=== PATIENT | female | born 1995 | race Caucasian/White ===

== ENCOUNTER 2023-01-13 14:17 | Outpatient (CLI) | payer BC, SELFPAY ==
[2023-01-13 15:13] LABS: Beta HCG Quantitative 340.09 mIU/ML
[2023-01-13 16:06] LABS: T4 Thyroxine 7.87 ug/dL (5.53-11.0)
== END 2023-01-13 14:18 | disposition home or self-care (01) ==
LOC: ANHLAB 14:19
PROVIDERS: PCP Pediatrics; Visit Provider Obstetrics & Gynecology
DX: O26.851 Spotting complicating pregnancy, first trimester (principal); Z3A.00 Weeks of gestation of pregnancy not specified
CPT/HCPCS: 36415; 84436; 84443; 84702; 86850; 86900; 86901

== ENCOUNTER 2023-04-05 08:03 | Outpatient (CLI) | payer OTHER, SELFPAY ==
--- NOTE | ~2023-04-05 | US_ITS ---
US abdomen limited INDICATION: Abnormal liver enzymes PROCEDURE: Realtime right upper abdominal ultrasound. COMPARISON: No prior studies for comparison. FINDINGS: The pancreas is normal without focal mass or pancreatic ductal dilation. Echotexture is in creased, consistent with fatty infiltration. There is focal fatty sparing of the liver near the gallb ladder fossa. There is normal directional flow in the portal vein. The gallbladder is normal without stones, gallbladder wall thickening or pericholecystic fluid. Comm on bile duct measures 3.6 mm. No sonographic Donnelly's sign. IMPRESSION: 1: Hepatic steatosis. Reviewed, dictated and finalized at location L. IMPRESSION: 1: Hepatic steatosis.
[2023-04-05 10:33] LABS: Alanine Aminotransferase 61 U/L (6-35); Albumin Level 4.4 g/dL (3.5-5.1); Alkaline Phosphatase 57 U/L (38-126); Anion Gap 8 mmol/L (8-16); Aspartate Amino Transferase 39 U/L (14-36); Bilirubin,Total 0.8 mg/dL (0.2-1.3); Blood Urea Nitrogen 12 mg/dL (7-17); Calcium 9.1 mg/dL (8.4-10.2); Carbon Dioxide 25 mmol/L (22-30); Chloride 104 mmol/L (98-107); Estimated Glomerular Filt Rate > 60; Glucose 111 mg/dL (65-110); Sodium 137 mmol/L (137-145)
== END 2023-04-05 08:04 | disposition home or self-care (01) ==
LOC: ANHIMG 08:06
PROVIDERS: PCP Pediatrics; Visit Provider Obstetrics & Gynecology
DX: R74.8 Abnormal levels of other serum enzymes (principal); K76.0 Fatty (change of) liver, not elsewhere classified
CPT/HCPCS: 36415; 76705; 80053

== ENCOUNTER 2024-07-16 13:37 | Outpatient (CLI) | payer BC, SELFPAY ==
[2024-07-16 14:01] LABS: Basophils Percent Auto 0.3 % (0.2-1.2); Eosinophils Absolute Auto 0.2 K/mm3 (0-0.3); Eosinophils Percent Auto 2.3 % (0-4.4); Hematocrit 39.2 % (37.0-47.0); Hemoglobin 13.1 g/dL (12.0-15.0); Immature Granulocyte Absolute 0.02 K/mm3 (0.00-0.031); Immature Granulocyte Percent A 0.3 % (0-0.5); Lymphocytes Absolute Auto 1.52 K/mm3 (0.9-3.2); Lymphocytes Percent Auto 23.7 % (18.3-44.2); Mean Corpuscular HGB Conc 33.4 g/dl (32-36); Mean Corpuscular Volume 86.7 fl (80-100); Mean Platelet Volume 9.8 fl (7.4-10.4); Monocytes Absolute Auto 0.4 K/mm3 (0.1-0.6); Monocytes Percent Auto 6.2 % (2.6-8.5); Neutrophils Absolute Auto 4.3 K/mm3 (1.3-6.7); Neutrophils Percent Auto 67.2 % (45.5-73.1); Platelet Count Result 211 k/mm3 (150-375); Red Blood Count 4.52 M/mm3 (4.2-5.4); Red Cell Distribution Width 12.7 % (11.5-14.5); White Blood Count 6.4 K/mm3 (4.5-10.0)
[2024-07-16 14:25] LABS: Add Urine Microscopic? YES; Appearance Urine Clear (Clear); Bacteria Urine 1+ /hpf; Bilirubin Urine Negative (Negative); Blood Urine 1+ (Negative); Color Urine Yellow (Yellow); Glucose Urine UA Negative (Negative); Ketones Urine Negative (Negative); Leukocyte Esterase Ur Negative LEU/UL (Negative); Need Manual Microscopic Reviewed; Nitrate Urine Negative (Negative); Non Pathogenic Casts 0-2; Protein Urine Negative (Negative); RBC Urine 0-2 /hpf (0-2); Squamous Epithelial Cell Urine Occasional /hpf (Few); Urobilinogen Urine 0.2 mg/dL (<2.0); WBC Urine 0-5 /hpf (0-3); pH Urine 5.5 (5.0-9.0)
[2024-07-16 14:51] LABS: HIV 1/2 Ab P24 Ag Result Negative (Negative)
[2024-07-16 15:06] LABS: Hepatitis B Surface Antigen Negative (Negative); Rubella IgG Antibody 31.1 IU/ML
[2024-07-16 15:11] LABS: Hepatitis C Virus Antibody Negative (Negative)
[2024-07-17 10:07] LABS: Rapid Plasma Reagin Non-Reactive (NonReactive)
[2024-07-17 20:13] LABS: Hematocrit 39.9 % (35.0-45.0); Hemoglobin 12.9 g/dL (11.7-15.5); MCH 28.6 pg (27.0-33.0); MCV 88.5 fL (80.0-100.0); RDW 12.3 % (11.0-15.0); Red Blood Cell Count 4.51 Million/uL (3.80-5.10)
== END 2024-07-16 13:38 | disposition home or self-care (01) ==
PROVIDERS: PCP Pediatrics; Visit Provider Obstetrics & Gynecology
DX: Z34.90 Encounter for supervision of normal pregnancy, unspecified, unspecified trimester (principal); Z79.899 Other long term (current) drug therapy
CPT/HCPCS: 36415; 81001; 83021; 85025; 86592; 86703; 86762; 86787; 86803; 86850; 86900; 86901; 87086; 87340; G0432

== ENCOUNTER 2024-08-07 10:34 | Outpatient (CLI) | payer BC, SELFPAY ==
[2024-08-07 12:29] LABS: Free T4 Free Thyroxine 1.03 ng/dL (0.78-2.19)
[2024-08-07 23:51] LABS: Alanine Aminotransferase 17 U/L (6-35); Albumin Level 3.6 g/dL (3.5-5.1); Alkaline Phosphatase 61 U/L (38-126); Aspartate Amino Transferase 19 U/L (14-36); Bilirubin,Total 0.5 mg/dL (0.2-1.3)
[2024-08-08 00:22] LABS: Thyroid Stimulating Hormone 0.772 uIU/mL (0.465-4.680)
== END 2024-08-07 10:35 | disposition home or self-care (01) ==
PROVIDERS: PCP Pediatrics; Visit Provider Obstetrics & Gynecology
DX: O99.280 Endocrine, nutritional and metabolic diseases complicating pregnancy, unspecified trimester (principal); E03.9 Hypothyroidism, unspecified; Z3A.00 Weeks of gestation of pregnancy not specified
CPT/HCPCS: 36415; 80076; 84439; 84443

== ENCOUNTER 2024-09-21 09:02 | Outpatient (CLI) | payer BC, SELFPAY ==
[2024-09-21 11:19] LABS: OBXCEM ROM Plus Negative (Negative)
== END 2024-09-21 09:50 | disposition home or self-care (01) ==
LOC: ANHOBOP 09:07 → ANHOBPP 09:08
PROVIDERS: PCP Pediatrics; Visit Provider Obstetrics & Gynecology
DX: O41.8X90 Other specified disorders of amniotic fluid and membranes, unspecified trimester, not applicable or unspecified (principal); Z3A.00 Weeks of gestation of pregnancy not specified
CPT/HCPCS: 84112; 99199

== ENCOUNTER 2024-10-05 07:46 | Observation (INO) | payer BC, SELFPAY ==
[2024-10-05] VITALS (15 sets, daily range): PULSE 104–136; O2SAT 97–100; BMI 30.2
--- OUTSIDE RECORDS SUMMARY | 2024-10-05 07:57 | XMS_ITS | Encounter Summary ---
Author Organization [facility] Address [address] [place] [address] Care Team Providers Care Supersonic Engineer Name Role Phone Unavailable Primary Care Provider Unavailabl e Encounter Details Date Type Department Care Team (Latest Contact Info) Description 02/16/2024 Lab Requisition [facility] [address] [place] [address] Carla Chavez MD [address] [facility] [address] [place] [address] Hyperstimulation of ovaries Social History Tobacco Use Types Packs/Day Years Used Date Smoking Tobacco: Never Assessed Sex and Gender Information Value Date Recorded Sex Assigned at Not on file Gender Identity Not on file Sexual Orientation Not on file documented as of this encounter Plan of Treatment Not on file documented as of this encounter Procedures Procedure Name Priority Date/Time Associated Diagnosis Comments CBC W AUTO DIFFERENTIAL STAT 02/16/2024 12:15 PM CDT Hyperstimulation of ovaries COMPREHENSIVE METABOLIC PANEL STAT 02/16/2024 12:15 PM CDT Hyperstimulation of ovaries documented in this encounter Results * (ABNORMAL) COMPREHENSIVE METABOLIC PANEL (02/16/2024 12:15 PM CDT) Glucose 114(H) 70 - 105 mg/dL 02/16/2024 12:56 PM CDT [facility] Sodium 141 136 - 145 mmol/L 02/16/2024 12:56 PM CDT [facility] Potassium 4.7 3.5 - 5.1 mmol/L 02/16/2024 12:56 PM CDT [facility] Chloride 106 98 - 107 mmol/L 02/16/2024 12:56 PM CDT [facility] CO2 26 22 - 29 mmol/L 02/16/2024 12:56 PM CDT [facility] Calcium 9.6 8.4 - 10.4 mg/dL 02/16/2024 12:56 PM CDT [facility] Anion Gap 9 6 - 16 mmol/L 02/16/2024 12:56 PM CDT [facility] BUN 10 5.3 - 18.7 mg/dL 02/16/2024 12:56 PM CDT [facility] Creatinine 0.79 0.57 - 1.11 mg/dL 02/16/2024 12:56 PM CDT [facility] Alkaline Phosphatase 56 40 - 150 U/L 02/16/2024 12:56 PM CDT [facility] ALT 18 0 - 55 U/L 02/16/2024 12:56 PM CDT [facility] AST 13 5 - 34 U/L 02/16/2024 12:56 PM CDT [facility] Protein Total 6.6 6.4 - 8.3 gm/dL 02/16/2024 12:56 PM CDT [facility] Albumin 3.6 3.4 - 5.0 gm/dL 02/16/2024 12:56 PM CDT [facility] Bilirubin Total 0.6 0.2 - 1.2 mg/dL 02/16/2024 12:56 PM CDT [facility] eGFR by CKD-EPI >90 >=90 mL/min/1.7 3 m2 02/16/2024 12:56 PM CDT [facility] Blood BLOOD SPECIMEN / Unknown Venipuncture / Unknown 02/16/2024 12:15 PM CDT 02/16/2024 12:15 PM CDT Carla Chavez MD LAB - CHEMISTR Y ORDERABLES [facility] [address] [place] [address] * (ABNORMAL) CBC WITH DIFFERENTIAL (02/16/2024 12:15 PM CDT) [facility] Signature WBC 7.4 4.0 - 10.7 x10E9/L 02/16/2024 12:32 PM CDT [facility] RBC Count 3.96 3.90 - 5.20 x10E12/L 02/16/2024 12:32 PM CDT [facility] Hemoglobin 11.4(L) 11.9 - 15.8 g/dL 02/16/2024 12:32 PM CDT [facility] Hematocrit 35.5 34.8 - 46.1 % 02/16/2024 12:32 PM CDT [facility] MCV 89.6 80.0 - 98.0 fL 02/16/2024 12:32 PM CDT [facility] MCH 28.8 26.7 - 33.6 pg 02/16/2024 12:32 PM CDT [facility] MCHC 32.1 31.7 - 36.3 g/dL 02/16/2024 12:[facility] RDW-CV 11.9 11.3 - 14.8 % 02/16/2024 12:32 [address] [facility] Platelet Count 172 150 - 420 x10E9/L 02/16/2024 12:32 PM [facility] MPV 10.6 7.8 - 11.4 fL 02/16/2024 12:32 PM [facility] Neutrophil % 74.5(H) 41.0 - 74.0 % 02/16/2024 12:32 PM [facility] Lymphocyte % 13.4(L) 17.0 - 47.0 % 02/16/2024 12:32 PM [facility] Monocyte % 10.0 3.0 - 11.0 % 02/16/2024 12:32 PM CDT [facility] Eosinophil % 1.4 0.0 - 7.0 % 02/16/2024 12:32 PM [facility] Basophil % 0.3 0.0 - 1.6 % 02/16/2024 12:32 PM CDT [facility] Immature Granulocytes % 0.4 0.0 - 1.0 % 02/16/2024 12:32 [address] [facility] Neutrophil Absolute 5.52 1.60 - 7.50 x10E9/L 02/16/2024 12:32 PM CDT [facility] Lymphocyte Absolute 0.99(L) 1.00 - 4.40 x10E9/L 02/16/2024 12:32 PM CDT [facility] Monocyte Absolute 0.74 0.15 - 1.00 x10E9/L 02/16/2024 12:32 PM CDT [facility] Eosinophil Absolute 0.10 0.00 - 0.60 x10E9/L 02/16/2024 12:32 PM CDT [facility] Basophil Absolute 0.02 0.00 - 0.13 x10E9/L 02/16/2024 12:32 PM CDT [facility] Blood BLOOD SPECIMEN / Unknown 02/16/2024 12:15 PM CDT 02/16/2024 12:15 PM CDT Carla Chavez MD LAB - HEMATOLO GY ORDERABLES Performing Organization Address City/State/[facility] Co de Phone Number [facility] [address] [place] [address] documented in this encounter Visit Diagnoses Diagnosis Hyperstimulation of ovaries Other ovarian hyperfunction documented in this encounter
--- OUTSIDE RECORDS SUMMARY | 2024-10-05 07:57 | XMS_ITS | Referral Summary ---
Author Organization [facility] Address [address] [place] [address] Care Team Providers Care Internetworking Technician Name Role Phone Unavailable Primary Care Provider Unavailabl e Source Comments [facility],non-owned Affiliates and Associated Physician Practices is amultiple site organization consisting of ambulatory clinics and hospital sitesin [place], [place], [place] and [place]. This disclosure is being madepursuant to the Care Everywhere program and may not contain all information available regarding this patient. Last updated 18.[facility] Social History Tobacco Use Types Packs/Day Years Used Date Smoking Tobacco: Never Assessed Sex and Gender Information Value Date Recorded Sex Assigned at Not on file Gender Identity Not on file Sexual Orientation Not on file Plan of Treatment Not on file
--- OUTSIDE RECORDS SUMMARY | 2024-10-05 07:57 | XMS_ITS | Clinical Summary ---
Author Organization [facility] Address [address] [place] [address] Care Team Providers Care Immigration Coordinator Name Role Phone Unavailable Primary Care Provider Unavailabl e Source Comments [facility],non-owned Affiliates and Associated Physician Practices is amultiple site organization consisting of ambulatory clinics and hospital sitesin [place], [place], [place] and [place]. This disclosure is being madepursuant to the Care Everywhere program and may not contain all information available regarding this patient. Last updated 18.[facility] Social History Tobacco Use Types Packs/Day Years Used Date Smoking Tobacco: Never Assessed Sex and Gender Information Value Date Recorded Sex Assigned at Not on file Gender Identity Not on file Sexual Orientation Not on file Plan of Treatment Health Maintenance Due Date Last Done Comments PAP SMEAR 1995 HIV SCREENING 12/27/2010 HEPATITIS C SCREENING 12/23/2013 DTAP/TDAP/TD VACCINES (1 - Tdap) 12/27/2014 HEPATITIS B VACCINE (1 of 3 - 19+ 3-dose series) 12/27/2014 COVID-19 VACCINE ( - 2023-2 5 season) 2024 INFLUENZA VACCINE (#1) 2024 DEPRESSION SCREENING 07/25/2024 ZOSTER VACCINE (1 of 2) 12/27/2045 HIB VACCINE Aged Out No longer eligi ble based on patient's age to complete this topic HPV VACCINE Aged Out No longer eligi ble based on patient's age to complete this topic MENINGOCOCCAL (Group B) VACC INE SHARED DECISION-MAKING Aged Out No longer eligibl e based on patient's age to complete this topic MENINGOCOCCAL GROUPS A/C/Y/W VACCINE Aged Out No longer eligible b ased on patient's age to complete this topic PNEUMOCOCCAL VACCINE Aged Out No long er eligible based on patient's age to complete this topic
--- OUTSIDE RECORDS SUMMARY | 2024-10-05 07:57 | XMS_ITS | Clinical Summary ---
Author Organization [facility] Address [address] [place] [address] Phone Care Team Providers Care Telecommunication Tower Technician Name Role Phone Unavailable Primary Care Provider Unavailabl e Encounters Date Type Department Care Team Description 09/29/2024 External Device Data STL ABSTRACTION Provider, Abstract 09/28/2024 External Device Data STL ABSTRACTION Provider, Abstract 09/18/2024 External Device Data STL ABSTRACTION Provider, Abstract 09/18/2024 External Device Data STL ABSTRACTION Provider, Abstract 09/18/2024 External Device Data STL ABSTRACTION Provider, Abstract 09/13/2024 7:09 AM SPEECH CLINICIAN - 09/13/2024 11:59 PM SPEECH CLINICIAN Hospital Encounter [facility] [address] [place] [phone] Surjit Freed MD Discharge Disposition: Home or Self Care from Last 3 Months Social History Tobacco Use Types Packs/Day Years Used Date Smoking Tobacco: Never Assessed Comments Unknown Sex and Gender Information Value Date Recorded Sex Assigned at Not on file Legal Sex Female 3:54 PM SPEECH CLINICIAN Gender Identity Not on file Sexual Orientation Not on file Plan of Treatment Upcoming Encounters Date Type Department Care Team (Late st Contact Info) Description 10/11/2024 7:15 AM CDT Appointment [facility] [address] [place] [phone] Catrachita Morirs MD [address] [place] [address] 10/11/2024 7:45 AM CDT Appointment [facility] [address] [place] [address] Catrachita Morris MD [address] [place] [address] Health Maintenance Due Date Last Done Comments DTAP/TDAP/TD VACCINES (7 - Td or Tdap) 11/07/2018 11/07/2008, 04/28/2000, 04/28/2000, Additional history exists INFLUENZA VACCINE (#1) 2024 Preventative Visit- Commercial 07/25/2024 05/10/2022, 05/04/2021, 01/14/2020 CERVICAL CANCER SCREENING 05/10/2025 05/10/2022 HEPATITIS B VACCINES Completed 07/06/1996, 02/27/1996, 1995 HPV VACCINES Aged Out No longer eligi ble based on patient's age to complete this topic Procedures Procedure Name Priority Date/Time Associated Diagnosis Comments US OB 14+ WKS SINGLE GEST Routine 09/13/2024 8:32 AM SPEECH CLINICIAN screening for malformation using ultrasonics from Last 3 Months Results * US OB 14+ WKS SINGLE GEST (09/13/2024 8:32 AM SPEECH CLINICIAN) Anatomical Region Laterality Modality Pelvis Ultrasound 09/13/2024 7:17 AM SPEECH CLINICIAN Narrative 09/13/2024 8:37 AM SPEECH CLINICIAN STL COMP ----- Pat. Name: FATMATA RAMON Study Date: 09/13/2024 7:17am Pat. NO: [id number] Referring MD: SURJIT FREED MD Site: [facility] Worker: Mary Wagoner RDMS : 1995 Age: 28 ----- INDICATION ----- Anatomy Survey IVF Resulting from Assistive PGA wnl. Declined NIPT. Reproductive Technique CODING ----- Diagnoses Z3A.20: Weeks of gestation O09.812: Supervision of resulting from assisted reproductive technology Z36.3: Encounter for screening for malformations Procedures 52694: Ultrasound, uterus, real time with image documentation, and maternal evaluation plus detailed anatomic examination, transabdominal approach METHOD ----- Transabdominal ultrasound examination ----- Ernst . Number of fetuses: 1 DATING ----- Method of dating: based on stated KRISH GA by prior assessment 20 w + 4 d KRISH by prior assessment: 01/27/2025 Ultrasound examination on: 09/13/2024 GA by U/S based upon: AC, BPD, EFW, Femur, HC GA by U/S 21 w + 0 d KRISH by U/S: 01/24/2025 Assigned: based on stated KRISH, selected on 09/13/2024 Assigned GA 20 w + 4 d Assigned KRISH: 01/27/2025 BIOMETRY ----- BPD 48.4 mm 20w 4d 52% Hadlock OFD 64.3 mm 21w 6d 88% Dalton HC 180.9 mm 20w 4d 38% Hadlock Cerebellum tr 21.3 mm 20w 6d 54% Tellez Nuchal fold 4.7 mm AC 151.3 mm 20w 2d 36% Hadlock Femur 38.5 mm 22w 2d 92% Hadlock Humerus 31.8 mm 20w 4d 51% Dalton HC / AC 1.20 68% Nicolaides Weight Calculation: EFW 404 g 21w 0d 76% Hadlock EFW (lb,oz) 0 lb 14 oz EFW by Hadlock ([id number]) Head / Face / Neck Biometry: Button Tufting Machine Operator 5.2 mm CM 5.6 mm 65% Nicolaides Inner IOD 14.4 mm Extremities / Bony Struc Biometry: FL / BPD 0.80 98% Hadlock FL / HC 0.21 98% Hadlock FL / AC 0.25 >99% Hadlock GENERAL EVALUATION ----- Cardiac activity present. FHR 133 bpm. movements: present. Presentation: cephalic Placenta: Placental site: posterior, low lying, posterior Umbilical cord: Cord vessels: 3 vessel cord. Insertion site: placental insertion: normal Amniotic fluid: Amount of AF: normal amount. MVP 3.4 cm ANATOMY ----- The following structures appear normal: Head / Neck Cranium. Lateral ventricles. Choroid plexus. Midline falx. Cavum septi pellucidi. Cerebellum. Cisterna magna. Thalami. Nuchal fold. Face Lips. Profile. Nose. Palate. Orbits. Heart / Thorax 4-chamber view. RVOT view. LVOT view. 3-vessel view. 2-dhaeds-lzenrbh view. Situs. Aortic arch view. Ductal arch view. Superior vena cava. Inferior vena cava. High short axis view. Cardiac rhythm. Diaphragm. Abdomen Abdominal wall. Cord insertion. Stomach. Kidneys. Bladder. Genitals. Spine Cervical spine. Thoracic spine. Lumbar spine. Sacral spine. Extremities / Arms. Right hand. Left hand. Legs. Right foot. Left foot. Skeleton sex: female. MATERNAL STRUCTURES ----- Uterus ap 31 mm Cervix Visualized Approach - Transabdominal: Cervical length 42.2 mm Right Ovary Normal Size 20 mm x 27 mm x 26 mm. Vol 7.3 cm Left Ovary Normal Size 16 mm x 20 mm x 26 mm. Vol 4.6 cm GROWTH OVERVIEW ----- Exam date GA BPD (mm) HC (mm) AC (mm) FL (mm) HL (mm) EFW (g) 09/13/2024 20w 4d 48.4 52% 180.9 38% 151.3 36% 38.5 92% 31.8 51% 404 76% COMMENT ----- Patient's name and date of were verified by the scrap kettle tender before the exam IMPRESSION ----- IUP at 20w 4d AGA growth with EFW 404 g (76%) No major structural malformations are identified within the limits of ultrasound. No soft markers of aneuploidy are visualized. Normal amniotic fluid volume, MVP 3.4 cm Normal cervical length, 42.2 mm Placenta is posterior, low lying measuring 15mm from internal os Recommendations: - Recommend growth and echo in 4 weeks due to IVF - Recommend TVUS at 28 weeks for placental location Procedure Note Adriana Mendiola MD - 09/13/2024 STL COMP ----- Pat. Name:Kilo RAMON Date:09/13/2024 7:17am Pat. NO: [id number] MD:SURJIT FREED MD [place]:Mary Wagoner RDMS :1995Age:28 ----- INDICATION ----- Anatomy Survey IVF Resulting from Assistive PGA mialDurga DeclinedNIPTDurga Reproductive Technique CODING ----- Diagnoses Z3A.20: Weeks of gestation O09.812: Supervision of resulting fromassisted reproductive technology Z36.3: Encounter for screening formalformations Procedures 90414: Ultrasound, uterus, real time withimage documentation, and maternal evaluation plus detailed anatomic examination,transabdominal approach METHOD ----- Transabdominal ultrasound examination ----- Ernst . Number of fetuses: 1 DATING ----- Method of dating:based on stated KRISH GA by prior [id number] w + 4 d KRISH by prior assessment:01/27/2025 Ultrasound examination on:09/13/2024 GA by U/S based upon:AC, BPD, EFW, Femur, HC GA by U/S21 w + 0 d KRISH by U/S:01/24/2025 Assigned:based on stated KRISH, selected on 09/13/2024 Assigned GA20 w + 4 d Assigned KRISH:01/27/2025 BIOMETRY ----- BPD 48.4 mm 20w 4d52% Hadlock OFD 64.3 mm 21w 6d88% Dalton HC 180.9 mm 20w 4d38% Hadlock Cerebellum tr 21.3 mm 20w 6d54% Rosalinda Nuchal fold 4.7 mm AC 151.3 mm 20w 2d36% Hadlock Femur 38.5 mm 22w 2d92% Hadlock Humerus 31.8 mm 20w 4d51% Dalton HC / AC 1.20 68%Nicolaides Weight Calculation: EFW 404 g 21w 0d 76%Hadlock EFW (lb,oz) 0 lb 14 oz EFW by Hadlock ([id number]) Head / Face / Neck Biometry: Button Tufting Machine Operator 5.2 mm CM 5.6 mm 65%Nicolaides Inner IOD 14.4 mm Extremities / Bony Struc Biometry: FL / BPD 0.80 98%Hadlock FL / HC 0.21 98%Hadlock FL / AC 0.25 >99%Hadlock GENERAL EVALUATION ----- Cardiac activity present. FHR 133 bpm. movements: present.Presentation: cephalic Placenta: Placental site: posterior, low lying, posterior Umbilical cord: Cord vessels: 3 vessel cord. Insertion site: placentalinsertion: normal Amniotic fluid: Amount of AF: normal amount. MVP 3.4 cm ANATOMY ----- The following structures appear normal: Head / Neck Cranium. Lateral ventricles. Choroid plexus.Midline falx. Cavum septi pellucidi. Cerebellum. Cisterna magna. Thalami. Nuchal fold. Face Lips. Profile. Nose. Palate. Orbits. Heart / Thorax 4-chamber view. RVOT view. LVOT view. 3-vesselview. 4-ikxrxg-rbqespz view. Situs. Aortic arch view. Ductal arch view. Superior vena cava. Inferiorvena cava. High short axis view. Cardiac rhythm. Diaphragm. Abdomen Abdominal wall. Cord insertion. Stomach. Kidneys.Bladder. Genitals. Spine Cervical spine. Thoracic spine. Lumbar spine.Sacral spine. Extremities / Arms. Right hand. Left hand. Legs. Right foot.Left foot. Skeleton sex: female. MATERNAL STRUCTURES ----- Uterus ap 31 mm Cervix Visualized Approach - Transabdominal: Cervical length 42.2mm Right Ovary Normal Size 20 mm x 27 mm x 26 mm. Vol 7.3 cm Left Ovary Normal Size 16 mm x 20 mm x 26 mm. Vol 4.6 cm GROWTH OVERVIEW ----- Exam date GA BPD (mm) HC (mm) AC (mm) FL(mm) HL (mm) EFW (g) 09/13/2024 20w 4d 48.4 52% 180.9 38% 151.3 36%38.5 92% 31.8 51% 404 76% COMMENT ----- Patient's name and date of were verified by the scrap kettle tender beforethe exam IMPRESSION ----- IUP at 20w 4d AGA growth with EFW 404 g (76%) No major structural malformations are identified within the limitsof ultrasound. No soft markers of aneuploidy are visualized. Normal amniotic fluid volume, MVP 3.4 cm Normal cervical length, 42.2 mm Placenta is posterior, low lying measuring 15mm from internal os Recommendations: - Recommend growth and echo in 4 weeks due to IVF - Recommend TVUS at 28 weeks for placental location us Surjit Freed MD ORDERABLES Final Result from Last 3 Months Insurance BLUE ACCESS CHOICE [facility]
--- OUTSIDE RECORDS SUMMARY | 2024-10-05 07:57 | XMS_ITS ---
Author Organization [facility] Address [address] [place] [phone] Care Team Providers Care Retail Presentation Specialist Name Role Phone Edithsonnyaden Davis Primary Care Provider [phone] Migration, Provider Unavailable Unavailable Allergies Allergen (clinical drug ingredient) Drug/Non Drug Allergy documented on EMR Reaction Allergy Type Onset Date Status amoxicillin Amoxicillin rash as an Drug Allergy 01/27/2022 Active Keflex nausea and abdominal cramping Drug Allergy 01/27/2022 Active REASON FOR VISIT EMR[facility] Medications Medication SIG (Take, Route, Frequency, Duration) Notes Start Date End Date Status Synthroid 75 MCG 1 Oral every evening ; Duration: 90 06/11/2024 03/07/2025 Active Levothyroxine Sodium 50 MCG 1 Oral every other day; Duration: 90 06/11/2024 03/07/2025 Active Encounters Encounter Location Date Provider Diagnosis [address] [address] 06/24/2024 Provider Migration Plan Of Treatment Next Appt Details Provider Name:Davis giordano, 03/18/2025 10:30:00 AM, [address] [place] [address], [phone], [phone] Progress Notes * Sarahi RAMONOB:[birth year] (28 yo F)Acc No.[id number]:06/24/2024 Patient: Fatmata MCNEIL :1995 A ge:28 Y S ex:Female Address:[address] [place] [address], [address] Subjective: * Chief Complaints: * E MR-Armando * Medical History: * Surgical History: Appendectomy 09/06/2016 * Hospitalization/Major Diagno stic Procedure: * Medications: T akingSynthroid 75 MCG Tablet 1 Oral every evening , stop date 03/07/2025Levothyroxine Sodium 50 MCG Tablet 1 Oral every other day , stop date 03/07/2025Taking Synthroid 75 MCG Tablet 1 Oral every evening , stop date 03/07/2025Taking Levothyroxine Sodium 50 MCG Tablet 1 Oral every other day , stop date 03/07/2025 * Allergies: A moxicillin: rash as an - Allergy - Onset Date 01/27/2022Keflex: nausea and abdominal cramping - Allergy - Onset Date 01/27/2022 Objective: * Physical Examination: Plan: * Treatment: * Procedure Codes: Billing Information: * Visit Code: * Procedure Codes: * * Date:
--- OUTSIDE RECORDS SUMMARY | 2024-10-05 07:57 | XMS_ITS ---
Author Organization [facility] Address [address] [place] [phone] Care Team Providers Care Editor Name Role Phone Davis Villeda Primary Care Provider [phone] Migration, Provider Unavailable Unavailable REASON FOR VISIT EMR-Armando Encounters Encounter Location Date Provider Diagnosis [facility] [address] [place] [address] 06/23/2024 Provider Migration Plan Of Treatment Medication Medication Name Sig Start Date Stop Date Notes Synthroid 75 MCG 1 Oral every evening; Duration: 90 05/27/2023 05/27/2023 Rx Refill Request,discontinu ereason:Refilled Levothyroxine Sodium 50 MCG 1 Oral every other day; Duration: 90 03/12/2024 03/12/2024 Rx Refill Request,discontinu ereason:Refilled Bactrim DS 800-160 MG 1 Oral two times a day; Duration: 7 01/27/2022 02/02/2022 Triamcinolone Acetonide 0.1 % External two times a day; Duration: 0 01/27/2022 01/27/2022 Synthroid 50 MCG 1 Oral every other day; Duration: 90 12/20/2023 12/20/2023 Rx Refill Request,discontinu ereason:Refilled Next Appt Details Provider Name:Davis Espino en, 03/18/2025 10:30:00 AM, [address] [place] [address], [phone], [phone] Progress Notes * Sarahi RAMONOB:[birth year] (28 yo F)Acc No.[id number]:06/23/2024 Patient: Fatmata MCNEIL :1995 A ge:28 Y S ex:Female Address:[address] [place] [address] [address], [place], [address] * Refills Stop Levothyroxine Sodium Tablet, 50 MCG, Oral, 45, 1, every other day, 90 Stop Synthroid Tablet, 75 MCG, Oral, 0 Stop Bactrim DS Tablet, 800-160 MG, Oral, 14, 1, two times a day, 7 Stop Synthroid Tablet, 75 MCG, Oral, 45, 1, every evening, 90 Stop Synthroid Tablet, 50 MCG, Oral, 45, 1, every other day, 90 Stop Synthroid Tablet, 50 MCG, Oral, 1, every day, 0 Stop Triamcinolone Acetonide Ointment, 0.1 %, External, 22, two times a day, 0 Subjective: * Chief Complaints: * E MR-Armando * Medical History: * Surgical History: * Hospitalization/Major Diagno stic Procedure: * Medications: Objective: * Physical Examination: Plan: * Treatment: * Procedure Codes: Billing Information: * Visit Code: * Procedure Codes: * * Date:
--- OUTSIDE RECORDS SUMMARY | 2024-10-05 07:57 | XMS_ITS | Patient Health Summary ---
Author Organization [facility] Last.fm Address [address] [place] [address] Care Team Providers Care Marine Operations Coordinator Name Role Phone Unavailable Primary Care Provider Unavailabl e Note from [facility] [place][note 2],non-owned Affiliates and Associated Physician Practices is amultiple site organization consisting of ambulatory clinics and hospital sitesin [place], [place], [place]. This disclosure is being madepursuant to the Care Everywhere program and may not contain all information available regarding this patient. Last updated 18.[facility] Last[employer]fm Social History Tobacco Use Types Packs/Day Years Used Date Smoking Tobacco: Never Assessed Sex and Gender Information Value Date Recorded Sex Assigned at Not on file Gender Identity Not on file Sexual Orientation Not on file Procedures * COMPREHENSIVE METABOLIC PANEL(Performed 02/16/2024) Performed for Hyperstimulation of ovaries * CBC W AUTO DIFFERENTIAL(Performed 02/16/2024) Performed for Hyperstimulation of ovaries Results * (ABNORMAL) CBC WITH DIFFERENTIAL (02/16/2024 12:15 PM CDT) WBC 7.4 4.0 - 10.7 x10E9/L 02/16/2024 12:32 PM CDT [facility] RBC Count 3.96 3.90 - 5.20 x10E12/L 02/16/2024 12:32 PM CDT [facility] Hemoglobin 11.4(L) 11.9 - 15.8 g/dL 02/16/2024 12:32 PM CDT [facility] Hematocrit 35.5 34.8 - 46.1 % 02/16/2024 12:32 PM CDT [facility] MCV 89.6 80.0 - 98.0 fL 02/16/2024 12:32 PM CDT [facility] MCH 28.8 26.7 - 33.6 pg 02/16/2024 12:32 PM CDT [facility] MCHC 32.1 31.7 - 36.3 g/dL 02/16/2024 12:32 PM CDT [facility] RDW-CV 11.9 11.3 - 14.8 % 02/16/2024 12:32 PM CDT [facility] Platelet Count 172 150 - 420 x10E9/L 02/16/2024 12:32 PM CDT [facility] MPV 10.6 7.8 - 11.4 fL 02/16/2024 12:32 PM CDT [facility] Neutrophil % 74.5(H) 41.0 - 74.0 % 02/16/2024 12:32 PM CDT [facility] Lymphocyte % 13.4(L) 17.0 - 47.0 % 02/16/2024 12:32 PM CDT [facility] Monocyte % 10.0 3.0 - 11.0 % 02/16/2024 12:32 PM CDT [facility] Eosinophil % 1.4 0.0 - 7.0 % 02/16/2024 12:32 PM CDT [facility] Basophil % 0.3 0.0 - 1.6 % 02/16/2024 12:32 PM CDT [facility] Immature Granulocytes % 0.4 0.0 - 1.0 % 02/16/2024 12:32 PM CDT [facility] Neutrophil Absolute 5.52 1.60 - 7.50 x10E9/L 02/16/2024 12:32 PM CDT [facility] Lymphocyte Absolute 0.99(L) 1.00 - 4.40 x10E9/L 02/16/2024 12:32 PM CDT [facility] Monocyte Absolute 0.74 0.15 - 1.00 x10E9/L 02/16/2024 12:32 PM CDT [facility] Eosinophil Absolute 0.10 0.00 - 0.60 x10E9/L 02/16/2024 12:32 PM CDT [facility] Basophil Absolute 0.02 0.00 - 0.13 x10E9/L 02/16/2024 12:32 PM CDT [facility] Blood BLOOD SPECIMEN / Unknown 02/16/2024 12:15 PM CDT 02/16/2024 12:15 PM CDT Carla Chavez MD LAB - HEMATOLO GY ORDERABLES [facility] [address] [place] [address] * (ABNORMAL) COMPREHENSIVE METABOLIC PANEL (02/16/2024 12:15 PM CDT) Glucose 114(H) 70 - 105 mg/dL 02/16/2024 12:56 PM CDT [facility] Sodium 141 136 - 145 mmol/L 02/16/2024 12:56 PM CDT [facility] Potassium 4.7 3.5 - 5.1 mmol/L 02/16/2024 12:56 PM CDT [facility] Chloride 106 98 - 107 mmol/L 02/16/2024 12:56 PM CDT [facility] CO2 26 22 - 29 mmol/L 02/16/2024 12:56 PM CDT [facility] Calcium 9.6 8.4 - 10.4 mg/dL 02/16/2024 12:56 PM T [facility] Anion Gap 9 6 - 16 mmol/L 02/16/2024 12:56 PM CDT [facility] BUN 10 5.3 - 18.7 mg/dL 02/16/2024 12:56 PM CDT [facility] Creatinine 0.79 0.57 - 1.11 mg/dL 02/16/2024 12:56 PM CDT [facility] Alkaline Phosphatase 56 40 - 150 U/L 02/16/2024 12:56 PM CDT [facility] ALT 18 0 - 55 U/L 02/16/2024 12:56 PM CDT [facility] AST 13 5 - 34 U/L 02/16/2024 12:56 PM [facility] Protein Total 6.6 6.4 - 8.3 gm/dL 02/16/2024 12:56 PM CDT [facility] Albumin 3.6 3.4 - 5.0 gm/dL 02/16/2024 12:56 PM [facility] Bilirubin Total 0.6 0.2 - 1.2 mg/dL 02/16/2024 12:56 PM [facility] eGFR by CKD-EPI >90 >=90 mL/min/1.7 3 m2 02/16/2024 12:56 PM [facility] Blood BLOOD SPECIMEN / Unknown Venipuncture / Unknown 02/16/2024 12:15 PM CDT 02/16/2024 12:15 PM CDT Carla Chavez MD LAB - CHEMISTR Y ORDERABLES [facility] [address] [place] [address]
--- OUTSIDE RECORDS SUMMARY | 2024-10-05 07:57 | XMS_ITS | Referral Summary ---
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
--- OUTSIDE RECORDS SUMMARY | 2024-10-05 07:58 | XMS_ITS | Clinical Summary ---
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 [employer] Gender Identity Not on file Sexual Orientation Not on file Plan of Treatment Health Maintenance Due Date Last Done Comments Cervical Cancer Screening 1995 Depression Screening 1995 Hepatitis C Screening 1995 Varicella Vaccines (1 of 2 - 13+ 2-dose series) 12/27/2008 Regular Well Visit/Exam 18-64 12/27/2013 DTaP/Tdap/Td Vaccine (7 - Td or Tdap) 11/07/2018 11/07/2008, 04/28/2000, 04/28/2000, Additional history exists Influenza Vaccine (#1) 2024 Hepatitis B Screening Completed 07/06/1996 , 07/06/1996, 02/27/1996, Additional history exists HPV Vaccines Aged Out No longer eligi ble based on patient's age to complete this topic Pneumococcal vaccine <65 Aged Out No longer eligible based on patient's age to complete [place] [address] [facility] Care Teams Steam Power Plant Operator Relationship Specialty Start Date End Date Caral Chavez MD PCP - General Obstetrics and Gynecology 07/08/23
--- OUTSIDE RECORDS SUMMARY | 2024-10-05 07:58 | XMS_ITS | Clinical Summary ---
Author Organization [facility] Address [address] [place] [address] Care Team Providers Care Mold Technician Name Role Phone Davis Villeda MD Primary Care Provider Allergies Active Allergy Reactions Criticality Noted Date Comments Amoxicillin Unknown 04/29/2015 Cephalexin Unknown,Rash Low 03/21/2015 Medications Docosahexaenoic Acid ( DHA) 200 MG Cap + DHA Active levothyroxine (SYNTHROID) 75 MCG tablet Synthroid 75 mcg tablet take 50 mcg on //Tue/S unday and 75 mcg on Tue/Tue/Tuesday x 90days Active levothyroxine (SYNTHROID) 50 MCG tablet Take 1 tablet (50 mcg total) by mouth every morning. Alternating every other day with 75mch Active Active Problems Problem Noted Date Diagnosed Date Vitamin D deficiency 04/23/2019 Estimated Date of Delivery Comme nts Yes 01/27/2025 Encounters Date Type Department Care Team Description 07/15/2024 12:37 AM WELDER APPRENTICE ARC - 07/15/2024 2:15 AM WELDER APPRENTICE ARC Emergency [facility] [address] [place] [address] [place] [address] Christoph Dasilva DO Vaginal Bleeding (12 weeks ) Discharge Disposition: Home or Self Care (Routine Discharge) 07/15/2024 Travel from Last 3 Months Immunizations Name Administration Dates Next Due Dtap 04/28/2000,04/02/1997 Dtap (Generic) 07/06/1996,04/27/1996,02/27/1996 Dtp/Hib 07/06/1996,04/27/1996,02/27/1996 Hepatitis A Vaccine - 2 Dose 09/26/2013,03/05/20 13 Hepatitis B 07/06/1996,02/27/1996,1995 Hepatitis B Pediatric 07/06/1996,02/27/1996,11/1995 Hib (Generic) 04/02/1997,07/06/1996,04/27/1996 ,02/27/1996 MMR 04/28/2000,01/01/1997 Menactra 03/12/2014,03/03/2012 Opv 07/06/1996,04/27/1996,02/27/1996 Polio IPV (Ipol) 04/28/2000 Polio Ipv (Generic) 04/28/2000 Tdap (Generic) 11/07/2008 Typhoid (Typhim ) 12/03/2015 Family History Medical History Relation Comments No Known Problems Father Thyroid Disease Mother Relation Status Comments Father Alive Mother Alive Social History Tobacco Use Types Packs/Day Years Used Date Smoking Tobacco: Never Smokeless Tobacco: Never Tobacco Cessation:Counseling Given: No Alcohol Use Standard Drinks/Week Comments Not Currently 0 (1 standard drink = 0.6 oz pur e alcohol) socially PHQ-2 Answer Date Recorded PHQ-2 Score - If the patient scores above 3, please move on to questions 3-9 0 05/10/2022 Estimated Date of Delivery Comme nts Yes 01/27/2025 Sex and Gender Information Value Date Recorded Sex Assigned at Not on file Legal Sex Female 6:11 PM CDT Gender Identity Not on file Sexual Orientation Not on file Last Filed Vital Signs Vital Sign Reading Time Taken Comments Blood Pressure 122/73 07/15/2024 1:15 AM WELDER APPRENTICE ARC Pulse 107 07/15/2024 12:41 AM WELDER APPRENTICE ARC Temperature 36.6 C (97.8 F) 07/15/2024 12:41 AM WELDER APPRENTICE ARC Respiratory Rate 16 07/15/2024 12:41 AM WELDER APPRENTICE ARC Oxygen Saturation 96% 07/15/2024 1:15 AM WELDER APPRENTICE ARC Inhaled Oxygen Concentration - - Weight 97.5 kg (215 lb) 07/15/2024 12:41 AM WELDER APPRENTICE ARC Height 185.4 cm (6' 1 ) 07/15/2024 12:41 AM WELDER APPRENTICE ARC Body Mass Index 28.37 07/15/2024 12:41 AM WELDER APPRENTICE ARC Plan of Treatment Health Maintenance Due Date Last Done Comments PHQ-2 (Phys[facility] [place]) 2007 Hepatitis C 12/27/2013 DTaP, Tdap and Td Vaccines (7 - Td or Tdap) 11/07/2018 11/07/2008, 04/28/2000, 04/02/1997, Additional history exists Annual Physical 05/10/2023 05/10/2022, 04/24, 01/14/2020 COVID-19 Vaccine ( season) 2024 Influenza Adult (#1) 2024 PHQ-2 ([facility] [place]) 07/25/2024 Cervical Cancer Screening Pap Smear (Age 21 to 29) Every 3 Years 05/10/2025 05/10/2022, 05/04/2021, 05/04/2021, Additional history exists Cervical Cancer Screening 05/10/2025 Hepatitis B Vaccines Completed 07/06/1996, 07/06/1996, 02/27/1996, Additional history exists Meningococcal Vaccine Completed 03/12/2014, 012 HPV Vaccines Aged Out No longer eligi ble based on patient's age to complete this topic Meningococcal B Vaccine Aged Out No l onger eligible based on patient's age to complete this topic Pneumococcal Vaccine: Pediatrics (0 to 5 Years) and At-Risk Patients (6 to 64 Years) Aged Out No longer eligible based on patient's age to complete this topic RSV Immunization or 60+ Years (No Doses Required) Completed RSV Immunizations Under 20 Months Aged Out No longer eligible based on patient's age to complete this topic Procedures Procedure Name Priority Date/Time Associated Diagnosis Comments HCG QUANT (SERUM)-CHORIONIC GONADOTROPIN STAT 07/15/2024 1:15 AM WELDER APPRENTICE ARC URINALYSIS AUTO DIP STAT 07/15/2024 1 :15 AM WELDER APPRENTICE ARC CYTOPATH CERV/VAG THIN LAYER Routine 05/10/2022 10:14 AM CDT from Last 3 Months or Most Recently Relevant to Health Maintenance Results * (ABNORMAL) URINALYSIS AUTO DIP (07/15/2024 1:15 AM WELDER APPRENTICE ARC) COLOR (U) YELLOW YELLOW 07/15/2024 1:32 AM WELDER APPRENTICE ARC [facility] TRANSPARENCY SLIGHTLY CLOUDY(A) CLEAR 07/15/2024 1:[address] [facility] SPECIFIC GRAVITY (U) 1.005(L) 1.010 - 1.025 07/15/2024 1:32 AM WELDER APPRENTICE ARC [facility] U PH 6.0 5.0 - 8.5 07/15/2024 1:32 AM WELDER APPRENTICE ARC [facility] LEUKOCYTES (U) NEGATIVE NEGATIVE 07/15/2024 1:32 AM WELDER APPRENTICE ARC [facility] NITRITES NEGATIVE NEGATIVE 07/15/2024 1:[address] [facility] PROTEIN RANDOM (U) NEGATIVE NEGATIVE 07/15/2024 1:[address] [facility] GLUCOSE (U) NEGATIVE NEGATIVE 07/15/2024 1:[address] [facility] KETONES MG/DL (U) NEGATIVE NEGATIVE 07/15/2024 1:[address] [facility] UROBILINOGEN 0.2 0.2 - 1.0 EU/DL 07/15/2024 1:[address] [facility] BILIRUBIN (U) NEGATIVE NEGATIVE 07/15/2024 1:[address] [facility] BLOOD (U) 3+(A) NEGATIVE 07/15/2024 1:[address] [facility] URINE SPECIMEN OBTAINED BY CLEAN CATCH PROCEDURE / Unknown 07/15/2024 1:15 AM WELDER APPRENTICE ARC Christoph Dasilva DO URINE ORDERABLES Final Result [facility] [address] [place] [address] [place] [address], [place] * (ABNORMAL) Quantitative HCG (07/15/2024 1:15 AM WELDER APPRENTICE ARC) HCG QUANTITATIVE 42,837(H) 0.0 - 6.0 MIU/ML 07/15/2024 2:06 AM WELDER APPRENTICE ARC [facility] Comment: WEEKS OF REFERENCE RANGES NON- FEMALE 0-6 0.2 - 1 5 - 50 1 - 2 50 - 500 2 - 3 100 - 5000 3 - 4 500 - 10,000 4 - 5 1000 - 50,000 5 - 6 10,000 - 100,000 6 - 8 15,000 - 200,000 2 - 3 MONTHS 10,000 - 100,000 07/15/2024 1:15 AM WELDER APPRENTICE ARC Christoph Dasilva DO LABORATORY Final Result [address] [place] [address], * Cytopath Cerv/Vag Thin Layer (05/10/2022 10:14 AM CDT) THIN PREP PAP [address] [address] Department of Pathology Pathology Report CERVICAL/VAGINAL PAP SMEAR REPORT Name: FATMATA RAMON Age: 6 1995 (Age: 26) Location: [facility] Sex: F Collected Date: 05/10/2022 [facility] #: [id number] Date Received: 05/12/2022 Date Reported: 05/13/2022 Provider: LUKASZ REGALADO INTERPRETATION CERVICAL/ENDOCERVI FREIDA: SATISFACTORY FOR EVALUATION. ENDOCERVICAL/TRANS FORMATION ZONE COMPONENT PRESENT. NEGATIVE FOR INTRAEPITHELIAL LESION OR MALIGNANCY. Electronically Signed Out By JENNIFER Gimenez (ASCP) CLINICAL HISTORY Z12.4 ThinPrep Pap Test with HR HPV testing in patient > 21 years with ASC-US diagnosis. Date of Last Menstrual Period: 04/23/22 Menstrual Status: Regular SPECIMEN SUBMITTED CERVICAL/ENDOCERVI FREIDA Specimen Received:1 Thin Prep Vial, Image Assisted Pap (SMD) Please note: The Pap smear is not a diagnostic test. It is a screening test. Negative results on combined screening (Pap test and HPV-DNA) have a high negative predictive value (99.1-100 percent) for cervical cancer. The pap test is not effective in detecting cervical adenocarcinoma. [facility] 05/10/2022 10:1 4 AM CDT 05/12/2022 10:14 AM CDT Comment:CERVICAL/ENDOCERVICA L Lukasz REGALADO PATHOLOGY/CYTOLOGY ORDERABLE S Final Result [facility] [address] [place] [address], from Last 3 Months or Most Recently Relevant to Health Maintenance Insurance [facility] Care Teams Mold Technician Relationship Specialty Start Date End Date Davis Villeda MD [address] [place] [address] PCP - General PEDIATRICS 07/06/23
--- OUTSIDE RECORDS SUMMARY | 2024-10-05 07:58 | XMS_ITS ---
Author Organization [facility] Address [address] [place] [address] Care Team Providers Care Clinical Massage Therapist Name Role Phone Davis Villeda Primary Care Provider [phone] Allergies Allergen (clinical drug ingredient) Drug/Non Drug Allergy documented on EMR Reaction Allergy Type Onset Date Status amoxicillin Amoxicillin rash as an infant Drug Allergy 01/27/2022 Active Keflex nausea and abdominal cramping Drug Allergy 01/27/2022 Active REASON FOR VISIT 6 month check up Medications Medication SIG (Take, Route, Frequency, Duration) Notes Start Date End Date Status Levothyroxine Sodium 50 MCG 1 Oral every other day; Duration: 90 06/11/2024 03/07/2025 Active (w/Iron & FA) 27-0.8 MG 1 tablet Orally Once a day Active Synthroid 75 MCG 1 Oral every evening ; Duration: 90 06/11/2024 03/07/2025 Active Social History Tobacco Use: Social History Observation Description Date Details (start date - stop date) Former Smoker NA - NA Tobacco Use/Smoking Question Answer Notes Tobacco use: former smoker Vital Signs Temperature 98.5 degrees Fahrenheit 07/20/20 24 Blood pressure systolic 110 mm Hg 07/20/20 24 Blood pressure diastolic 70 mm Hg 024 Heart Rate 80 /min 07/20/2024 Height 72.00 in 07/20/2024 Weight 216.6 lbs 07/20/2024 BMI 29.37 kg/m2 07/20/2024 Oximetry 98 % 07/20/2024 Weight-kg 98.25 kg 07/20/2024 Height-cm 182.88 cm 07/20/2024 Encounters Encounter Location Date Provider Diagnosis [address] [address] 07/20/2024 Davis Villeda Hypothyroidism, unspecified E03.9 ; Fatty (change of) liver, not elsewhere classified K76.0 and Second trimester Z34.92 Assessments Encounter Date Diagnosis (ICD Code) Assessment Notes Treat ment Notes Treatment Clinical Notes 07/20/2024 Hypothyroidism, unspecified (ICD-10 - E03.9) 07/20/2024 Fatty (change of) liver, not elsewhere classified (ICD-10 - K76.0) 07/20/2024 Second trimester (ICD-10 - Z34.92) Plan Of Treatment Next Appt Details Follow Up: 6 months, Reason: Routine check-up Provider Name:Davis Celena Kenzie en, 03/18/2025 10:30:00 AM, [address] [facility], [address], [phone] Progress Notes * Yuval RAMONBalaOB:[birth year] (28 yo F)Acc No.[id number]:07/20/2024 Patient: Fatmata Amado Provider: Sirena Villeda MD :1995 A ge:28 Y S ex:Female Date:07/20/2024 Address:[address] [place] [address] Subjective: * Chief Complaints: * 1 . 6 month check up. * HPI: H PI: Fatty liver -- Monitoring through bloodwork. Last completed on 01/02/24 showed ALT (59) and AST (28). Pt. also had US on 03/2023 that showed Hepatic steatosis. Hypothyroidism -- Dr. Villeda took over managing from Fatmata Cordoba, Patient Support Specialist. She is currently on Levo 75mcg daily and last labs on 01/02/24 showed TSH 1.71 and T4 0.90. -- [facility] [place] Pt. presents with no concerns today. The patient, Fatmata, is a 28-year-old female who presented for a routine 6-month follow-up. She has been under treatment for thyroid issues and is currently on 75 micrograms of levothyroxine on Tuesday, Tuesday, and Tuesday, and 50 micrograms on the other days. The patient is also 12 weeks , and her OB, Dr. Diaz, will be managing her thyroid during the . The patient's liver enzymes, which were previously elevated, have returned to the normal range. The patient reported that she quit drinking in October and has made healthier lifestyle choices, which may have contributed to the improvement in her liver function. The patient also reported a slight hearing loss, as diagnosed by a specialist, but it was not severe enough to require intervention. The patient is planning to breastfeed after delivery and has been advised to ensure her vitamin D levels are adequate. The patient has also been advised to have all necessary vaccinations for . * Medical History: * Surgical History: * Social History: T obacco Use: T obacco Use/Smoking T obacco use: f ormer smoker. D rinking: Quit in October Drug Use: No Work Environment: Living Situation: Smoking: No Exercise: Diet: Healthier choices. * Medications: T aking (w/Iron & FA) 27-0.8 MG Tablet 1 tablet Orally Once a day , Taking Synthroid 75 MCG Tablet 1 Oral every evening , stop date 03/07/2025, Taking Levothyroxine Sodium 50 MCG Tablet 1 Oral every other day , stop date 03/07/2025, Medication List reviewed and reconciled with the patient * Allergies: A moxicillin: rash as an infant - Allergy - Onset Date 01/27/2022, Keflex: nausea and abdominal cramping - Allergy - Onset Date 01/27/2022. Objective: * Vitals: B P:110/70mm Hg, HR:80/min, Temp:98.5F, Oxygen sat %:98%, Ht: 72.00 in, Wt:216.6lbs, Wt-k.25 kg, Ht-cm: 182.88 cm, BMI:29.37Index, Body Surface Area: 2.23. Assessment: * Assessment: 1. H ypothyroidism, unspecified - E03.9 (Primary) S pecify :Src Problem: Hypothyroidism, unspecified type 2 . F atty (change of) liver, not elsewhere classified - K76.0 ?Specify :Src Problem: Hepatic steatosis 3 . S econd trimester - Z34.92 Plan: * Follow Up: 6 months (Reason: Routine check-up) Billing Information: * Visit Code: 20889 OFFICE VISIT MODERATE. * Procedure Codes: * RVISOR RESEARCH KENNEL Sign off status: Completed true * Provider: Sirena Villeda MD Date: 09/20/2023 Generated for Shira capps/Vilma/Queta on: 0 10/05/2024 07:57 AM CDT
--- OUTSIDE RECORDS SUMMARY | 2024-10-05 07:58 | XMS_ITS | Patient Health Record ---
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 Name Role Phone Davis Villeda Primary Care Provider [phone] Migration, Provider Unavailable Unavailable Allergies Allergen (clinical drug ingredient) Drug/Non Drug Allergy documented on EMR Reaction Allergy Type Onset Date Status amoxicillin Amoxicillin rash as an infant Drug Allergy 01/27/2022 Active Keflex nausea and abdominal cramping Drug Allergy 01/27/2022 Active Results Component Value Reference Range Notes Vitamin D 25 Hydroxy Reviewed date:01/02/2024 12:00:00 AM Interpretation: Performing Lab: Notes/Report: Vitamin D 25 OH 31 ng/mL Thyroid Stimulating Hormone Reviewed date:01/02/2024 12:00:00 AM Interpretation: Performing Lab: Notes/Report: TSH 1.71 mcIU/mL T4 Free Reviewed date:01/02/2024 12:00:00 AM Interpretation: Performing Lab: Notes/Report: T4 Free 0.90 ng/dL Lipid Panel {Chol, Trig, HDL , LDL} Reviewed date:01/02/2024 12:00:00 AM Interpretation: Performing Lab: Notes/Report: Chol/HDL 3 Cholesterol Total 143 mg/dL Coronary Risk 36 % HDL 51 mg/dL LDL 61 mg/dL NON HDL CHOLESTEROL 92 mg/dL Triglycerides 155 mg/dL Hemoglobin A1c {Glycosylated } Reviewed date:01/02/2024 12:00:00 AM Interpretation: Performing Lab: Notes/Report: eAvg Glucose 111 mg/dL Hemoglobin A1c 5.5 % GGT{Gamma Glutamyl Transfera se} Reviewed date:01/02/2024 12:00:00 AM Interpretation: Performing Lab: Notes/Report: GGT 37 unit/L Comprehensive Metabolic Pane l Reviewed date:01/02/2024 12:00:00 AM Interpretation: Performing Lab: Notes/Report: Albumin Lvl 4.6 g/dL Albumin/Globulin Ratio 1.8 Alk Phos 59 unit/L ALT 59 unit/L ANION GAP 8.5 mmol/L AST 28 unit/L Bilirubin Total 0.5 mg/dL BUN 19 mg/dL Calcium Lvl 9.5 mg/dL Chloride Lvl 103 mmol/L CO2 26 mmol/L Creatinine Lvl 0.72 mg/dL eGFR CKD-EPI >90 mL/min/1.73 m2 Glucose Lvl 91 mg/dL Potassium Lvl 4.0 mmol/L Protein Total 7.1 g/dL Sodium Lvl 137 mmol/L CBC w/ Diff Reviewed date:01/02/2024 12:00:00 AM Interpretation: Performing Lab: Notes/Report: Basophil Auto 0.5 % Eos Absolute 0.3 x10*3/mcL Eosinophil Auto 3.9 % Hct 41.4 % Hgb 14.3 g/dL Lymph Absolute 1.8 x10*3/mcL Lymph Auto 27.3 % MCH 29.9 pg MCHC 34.6 g/dL MCV 86.5 fL [place] Absolute 0.5 x10*3/mcL [place] Auto 7.6 % MPV 9.2 fL Neutro Absolute 4.0 x10*3/mcL Neutro Auto 60.7 % Platelets 205 K/mcL RBC 4.78 x10*6/mcL RDW 11.8 % WBC 6.6 K/mcL Reason For Referral No Information Medications Medication SIG (Take, Route, Frequency, Duration) Notes Start Date End Date Status Levothyroxine Sodium 50 MCG 1 Oral every other day; Duration: 06/11/2024 03/07/2025 Active (w/Iron & FA) 27-0.8 MG 1 tablet Orally Once a day Active Synthroid 75 MCG 1 Oral every evening ; Duration: 06/11/2024 03/07/2025 Active Social History Tobacco Use: Social History Observation Description Date Details (start date - stop date) Former Smoker NA - NA Tobacco Use/Smoking Question Answer Notes Tobacco use: former smoker Problems Problem Type SNOMED Code ICD Code Onset Dates Problem Status W/U Status Risk Notes Problem Acute upper respiratory infection (90215911) Acute upper respiratory infections of unspecified site (465.9) 09/14/19 17 Problem resolved confirmed Problem Malaise and fatigue (670726330) Other malaise and fatigue (780.79) 09/06/19 17 Problem resolved confirmed Problem General examination of patient (697320362) Routine general medical examination at health care facility (V70.0) 12/08/19 17 Problem resolved confirmed Problem Acute upper respiratory infection (49603187) Acute upper respiratory infection, unspecified (J06.9) 05/08/20 18 Problem resolved confirmed Problem Eruption of skin (189933929) Rash and other nonspecific skin eruption (R21) 09/06/19 17 Problem resolved confirmed Problem Hypothyroidism (97716177) Hypothyroidism, unspecified (E03.9) 05/27/20 23 Active confirmed Problem Fatty liver (409373718) Fatty (change of) liver, not elsewhere classified (K76.0) 01/02/20 24 Active confirmed Problem Fatigue (08915629) Other fatigue (R53.83) 09/06/19 17 Problem resolved confirmed Vital Signs Heart Rate 80 /min 07/20/2024 Temperature 98.5 degrees Fahrenheit 07/20/2024 Respiratory Rate 16 /min 01/02/2024 Height-cm 182.88 cm 07/20/2024 Oximetry 98 % 07/20/2024 Blood pressure diastolic 70 mm Hg 07/20/2024 Weight-kg 98.25 kg 07/20/2024 Height 72.00 in 07/20/2024 Blood pressure systolic 110 mm Hg 07/20/2024 Weight 216.6 lbs 07/20/2024 BMI 29.37 kg/m2 07/20/2024 Encounters Encounter Location Date Provider Diagnosis [address] [address] 01/02/2024 Davis Villeda Unspecified hearing loss, unspecified ear H91.90 ; Fatty (change of) liver, not elsewhere classified K76.0 and Hypothyroidism, unspecified E03.[address] [address] 07/20/2024 Davis Villeda Hypothyroidism, unspecified E03.9 ; Fatty (change of) liver, not elsewhere classified K76.0 and Second trimester Z34.[address] [address] 06/23/2024 Provider Migration [address] [address] 06/24/2024 Provider Migration Assessments Encounter Date Diagnosis (ICD Code) Assessment Notes Treat ment Notes Treatment Clinical Notes 01/02/2024 Hypothyroidism, unspecified (ICD-10 - E03.9) 01/02/2024 Unspecified hearing loss, unspecified ear (ICD-10 - H91.90) 01/02/2024 Fatty (change of) liver, not elsewhere classified (ICD-10 - K76.0) 07/20/2024 Hypothyroidism, unspecified (ICD-10 - E03.9) 07/20/2024 Fatty (change of) liver, not elsewhere classified (ICD-10 - K76.0) 07/20/2024 Second trimester (ICD-10 - Z34.92) Plan Of Treatment Next Appt Details Provider Name:Davis giordano, 03/18/2025 10:30:00 AM, [address] [facility], [place], [address], [phone] Insurance Providers Payer Name Payer Address Payer Phone Subscriber Number Group Number Insured Name Patient Relationship to Insured Coverage Start Date Coverage End Date [employer] [address] [place] [address] [id number] Fatmata Ulloa Self - patient is the insured 4 Medical (General) History Medical History History ICD Code Thyroid disorder Liver enzyme elevation Slight hearing loss Surgical History Surgery Date(Month/Year) Appendectomy 09/06/2016
[2024-10-05] MEDS: DEXTROSE 5%/LACTATED RINGERS 1,000 ML 999 ML IV CONT (08:56)
[2024-10-05] MEDS: ONDANSETRON INJ 4 MG/2 ML VIAL IV PUSH (08:57)
--- NOTE | 2024-10-05 09:03 | OBADM ---
This patient, Fatmata Ulloa, admitted to the OB room OB Post 116 for observation. Patient/family oriented to hospital policies and general routines including ID bracelet, bed and alarms, visiting hours, pain management, procedures, bathroom and other care routines, personal items, smoking policy, room service/diet, and visiting hours. Patient/Family are encouraged to report perceived risks to care and to ask questions if they do not understand what they are told or what they should do.
--- NOTE | 2024-10-05 10:10 | PC.NURSE ---
Dr. Diaz informed pt is feeling better. Drinking fluids and eating jello. Pt requesting to go home. Orders for discharge received.
--- NOTE | 2024-10-11 06:40 | PM.OBTRLD ---
OB - Triage/Final Diagnosis Visit Information Comments/Additional reasons for admission: I have assessed the risk for this patient, Fatmata Ulloa, and determined that she would benefit from observation care. Final Diagnosis (1) Urine incontinence: Code(s): R32 - Unspecified urinary incontinence Status: Acute
== END 2024-10-05 10:48 | disposition home or self-care (01) ==
LOC: ANHOBPP 10:26 → ANHLDR 10:54
PROVIDERS: Admitting Provider Obstetrics & Gynecology; Visit Provider Obstetrics & Gynecology
DX: O26.892 Other specified pregnancy related conditions, second trimester (principal); R32 Unspecified urinary incontinence; Z3A.23 23 weeks gestation of pregnancy
CPT/HCPCS: 96361; 96374; G0378; G0379; J2405; J7121

== ENCOUNTER 2024-10-18 15:52 | Outpatient (CLI) | payer BC, SELFPAY ==
[2024-10-18 17:12] LABS: Glucose 1 Hour PP 50gm Dose 188 mg/dL
== END 2024-10-18 15:53 | disposition home or self-care (01) ==
LOC: ANHLAB 15:54
PROVIDERS: PCP Pediatrics; Visit Provider Nurse Practitioner Obstetrics & Gynecology
DX: Z34.90 Encounter for supervision of normal pregnancy, unspecified, unspecified trimester (principal); Z3A.00 Weeks of gestation of pregnancy not specified
CPT/HCPCS: 36415; 82947

== ENCOUNTER 2024-10-26 07:15 | Outpatient (CLI) | payer BC, SELFPAY ==
--- OUTSIDE RECORDS SUMMARY | 2024-10-26 07:21 | XMS_ITS ---
Author Organization [facility] Address [address] [place] [address] Care Team Providers Care Lettuce Cutter Name Role Phone Davis Villeda Primary Care Provider [phone] Migration, Provider Unavailable Unavailable REASON FOR VISIT EMR-Armando Encounters Encounter Location Date Provider Diagnosis [facility] [address] [place] [address] 06/23/2024 Provider Migration Plan Of Treatment Medication [...] Provider Name:Davis Espino en, 03/18/2025 10:30:00 AM, [address] [place] [address], [phone], [phone] Progress Notes * Sarahi RAMONOB:[birth year] (28 yo F)Acc No.[id number]:06/23/2024 Patient: Fatmata MCNEIL :1995 A ge:28 Y S ex:Female Address:[address] [place] [address] [address], [place], [address] * Refills Stop Levothyroxine Sodium Tablet, 50 [...]
--- OUTSIDE RECORDS SUMMARY | 2024-10-26 07:21 | XMS_ITS | Clinical Summary ---
Author Organization [facility] Address [address] [place] [address] Phone Care Team Providers Care Prefabricator Name Role Phone Unavailable Primary Care Provider Unavailabl e Encounters Date Type Department Care Team Description 10/23/2024 External Device Data STL ABSTRACTION Provider, Abstract 10/11/2024 7:13 AM CDT - 10/11/2024 11:59 PM CDT Hospital Encounter [facility] Isaias Cotton [address] [place] [phone] Catrachita Morris MD Discharge Disposition: Home or Self Care 10/11/2024 7:13 AM CDT - 10/11/2024 11:59 PM CDT Hospital Encounter [facility] Isaias Cotton [address] [place] [phone] Catrachita Morris MD Discharge Disposition: Home or Self Care 09/29/2024 External Device Data STL ABSTRACTION Provider, Abstract 09/28/2024 External Device Data STL ABSTRACTION Provider, Abstract 09/18/2024 External Device Data STL ABSTRACTION Provider, Abstract 09/18/2024 External Device Data STL ABSTRACTION Provider, Abstract 09/18/2024 External Device Data STL ABSTRACTION Provider, Abstract 09/13/2024 7:09 AM [employer] - 09/13/2024 11:59 PM [employer] Hospital Encounter [facility] Isaias Cotton [address] [place] [phone] Surjit Freed MD Discharge Disposition: Home or Self Care from Last 3 Months Social History Tobacco Use Types Packs/Day Years Used Date Smoking Tobacco: Never Assessed Comments Unknown Sex and Gender Information Value Date Recorded Sex Assigned at Not on file Legal Sex Female 3:54 PM [employer] Gender Identity Not on file Sexual Orientation Not on file Plan of Treatment Upcoming Encounters Date Type Department Care Team (Late st Contact Info) Description 11/08/2024 8:45 AM CDT Appointment [facility] [place] [address] Isaias Cotton [address] [place] [phone] Surjit Freed MD [address] [place] [address] Health Maintenance Due Date Last Done Comments HPV/Cotest (21-29) 12/27/2016 DTAP/TDAP/TD VACCINES (7 - Td or Tdap) 11/07/2018 11/07/2008, 04/28/2000, 04/28/2000, Additional history exists INFLUENZA VACCINE (#1) 2024 Preventative Visit- Commercial 07/25/2024 05/10/2022, 05/04/2021, 01/14/2020 CERVICAL CANCER SCREENING 05/10/2025 PAP SMEAR 05/10/2025 05/10/2022 PAP SMEAR 05/10/2025 05/10/2022 HEPATITIS B VACCINES Completed 07/06/1996, 02/27/1996, 1995 HPV VACCINES Aged Out No longer eligi ble based on patient's age to complete this topic Procedures Procedure Name Priority Date/Time Associated Diagnosis Comments ECHO 2D + COLOR FLOW VELOCITY Routine 10/11/2024 9:04 AM CDT screening for malformation using ultrasonics In vitro fertilization US OB FOLLOW UP PER FETUS Routine 10/11/2024 9:04 AM CDT screening for malformation using ultrasonics In vitro fertilization US OB 14+ WKS SINGLE GEST Routine 09/13/2024 8:32 AM [employer] screening for malformation using ultrasonics from Last 3 Months Results * ECHO 2D + COLOR FLOW VELOCITY (10/11/2024 9:04 AM CDT) Narrative 10/11/2024 9:04 AM CDT Order information only. Exam was auto-finalized. us Catrachita Morris MD US ORDERABLES Final Result * US OB FOLLOW UP PER FETUS (10/11/2024 9:04 AM CDT) Anatomical Region Laterality Modality Pelvis Ultrasound 10/11/2024 7:18 AM CDT Narrative 10/11/2024 9:10 AM CDT STL FOLLOW UP ----- Pat. Name: FATMATA RAMON Study Date: 10/11/2024 7:18am Pat. NO: [id number] Referring MD: USRJIT FREED MD Site: [facility] Director: Mary Wagoner RDMS : 1995 Age: 28 ----- INDICATION ----- IVF Resulting from Assistive Reproductive Technique CODING ----- Diagnoses Z3A.24: Weeks of gestation O09.812: Supervision of resulting from assisted reproductive technology Procedures 53160: Ultrasound, uterus, real time with image documentation, follow up, transabdominal approach per fetus 08589: Echocardiography, , cardiovascular system, real time with image documentation (2D), with or without M-mode recording 17075: Doppler echocardiography color flow velocity mapping 34294: Doppler echocardiography, , cardiovascular system, pulsed wave and/or continuous wave with spectral display; complete METHOD ----- Transabdominal ultrasound examination ----- Ernst . Number of fetuses: 1 DATING ----- GA by prior assessment 24 w + 4 d KRISH by prior assessment: 01/27/2025 Ultrasound examination on: 10/11/2024 GA by U/S based upon: AC, BPD, EFW, Femur, HC GA by U/S 24 w + 3 d KRISH by U/S: 01/28/2025 Method of dating: Restore dating from previous exam Assigned: based on stated KRISH, selected on 09/13/2024 Assigned GA 24 w + 4 d Assigned KRISH: 01/27/2025 BIOMETRY ----- BPD 61.6 mm 25w 0d 59% Hadlock OFD 80.3 mm 26w 1d 92% Dalton HC 227.1 mm 24w 5d 36% Hadlock AC 188.4 mm 23w 4d 15% Hadlock Femur 45.2 mm 25w 0d 49% Hadlock HC / AC 1.21 89% Nicolaides Weight Calculation: EFW 680 g 24w 1d 28% Hadlock EFW (lb,oz) 1 lb 8 oz EFW by Hadlock ([id number]) Head / Face / Neck Biometry: Behavioral Sciences Department Chair 4.4 mm Thorax / Lungs Biometry: Thoracic circ 150.0 mm 4% [place] Thoracic area 17.7 cm ThC / AC 0.80 Heart / Great Vessels Biometry: Cardiac axis 32 Cardiac circ 87.9 mm Cardiac area 5.9 cm CC / ThC 0.59 CA / Dania 0.34 PA main 5.0 mm Ductus art. 2.1 mm <1% Aden Rt PA branch 2.0 mm Lt PA branch 2.3 mm Ao asc 3.7 mm Ao isthmus 2.8 mm Ao desc 3.3 mm PA main / Ao asc 1.35 McGoon Index mod. 1.3 Ao isthmus / Ductus art. 1.33 IVC 3.1 mm SVC 2.9 mm Extremities / Bony Struc Biometry: FL / BPD 0.73 FL / HC 0.20 FL / AC 0.24 GENERAL EVALUATION ----- Cardiac activity present. FHR 143 bpm. movements: present. Presentation: cephalic Placenta: Placental site: posterior, low lying Umbilical cord: Cord vessels: 3 vessel cord. Insertion site: placental insertion: normal Amniotic fluid: Amount of AF: normal amount. MVP 3.8 cm ECHOCARDIOGRAM ----- Situs situs solitus (normal) Cardiac position levocardia (normal) Cardiac axis normal Cardiac size normal (approx. 1/3 of thoracic area) Cardiac rhythm regular (normal) 4-chamber view normal LVOT view normal RVOT view normal 3-vessel view normal 1-ayaqnk-xhdadnm view normal High short axis view normal Low short axis view normal Aortic arch view normal Ductal arch view normal Bicaval view normal Venous-atrial connections normal size and morphology AV connections normal alignment VA connections normal size and morphology IVC Normal SVC Normal Pulmonary veins normal size and morphology Right atrium Normal Left atrium Normal Atrial septum normal size and morphology Foramen ovale normal (in the central third/half, flap valve in left atrium) Right ventricle Normal Left ventricle Normal Ventricular septum normal size and morphology Tricuspid valve normal size and morphology Mitral valve normal size and morphology Pulmonary valve normal size and morphology Aortic valve normal size and morphology Cross-over gr. arteries anterior great artery (confirmed to be the pulmonary artery by its branching) which crosses the course of the proximal aorta, indicative of normal relationship of the great arteries Main PA the main pulmonary artery can be seen bifurcating into the arterial duct and the right pulmonary artery Pulmonary arteries Normal Ascending aorta normal size and morphology Ductal arch Normal Aortic arch Normal Brachioceph. arteries normal size and morphology Descending aorta normal size and morphology Ductus venosus Normal Echogenic focus no Linear insertion of AV valves no Pericardial effusion no Cardiac Biometry: RA width diast 10.1 mm RV width diast 8.7 mm 19% Aden RV wall diast 1.8 mm 5% Aden LA width diast 8.8 mm LV width diast 8.9 mm 24% Aden LV wall diast 1.8 mm 5% Aden IV Septum diast 1.7 mm 4% Aden LVOT diam 3.3 mm LVOT area 9.0 mm TV annulus diast 7.1 mm PV annulus syst 5.7 mm MV annulus diast 6.2 mm AoV annulus syst 3.1 mm MV annulus diast / TV annulus diast 0.87 AoV annulus syst / PV annulus syst 0.54 Heart Z-Scores: Z- FL Z- BPD Z- GA Z- EFW Zscore by RV width diast 8.7 mm -0.74 -0.41 -0.33 Giles LV width diast 8.9 mm -0.30 0.04 0.13 Giles TV annulus 7.1 mm -0.77 -0.44 -0.31 Giles diast MV annulus 6.2 mm -1.72 -1.26 -1.14 Giles diast PV annulus 5.7 mm 1.46 1.74 1.85 Giles syst AoV annulus 3.1 mm -2.27 -1.62 -1.53 Giles syst PA main 5.0 mm -0.30 0.01 0.12 Giles Ductus art. 2.1 mm -2.30 -1.78 -1.90 Giles Rt PA branch 2.0 mm -1.67 -1.38 -1.33 Giles Lt PA branch 2.3 mm -0.39 -0.09 -0.11 Giles Ao asc 3.7 mm -1.68 -1.33 -1.09 Chan Ao isthmus 2.8 mm -0.25 -0.43 -0.34 0.24 Mu Ao desc 3.3 mm -1.31 -0.84 -0.80 Chan IVC 3.1 mm 0.37 0.60 0.65 Chan Cardiac Doppler: Tricuspid Valve: E-wave 26.51 cm/s 3% Hecher A-wave 48.72 cm/s 16% Hecher E / A 0.54 3% Hecher Mitral Valve: E-wave 33.32 cm/s 49% Hecher A-wave 49.08 cm/s 36% Hecher E / A 0.68 73% Hecher Pulmonary Valve: Vmax 73.66 cm/s Left Ventricular Outflow Tract: Vmax 72.20 cm/s Peak PG 2.09 mmHg DOPPLER ----- Aortic Isthmus: PS 110.04 cm/s Ductus Arteriosus: PS 98.21 cm/s ANATOMY ----- The following structures appear normal: Head / Neck Cranium. Lateral ventricles. Cavum septi pellucidi. Heart / Thorax 4-chamber view. RVOT view. LVOT view. 3-vessel view. 7-tcrncn-weoscyk view. Diaphragm. Abdomen Stomach. Kidneys. Bladder. sex: female. GROWTH OVERVIEW ----- Exam date GA BPD (mm) HC (mm) AC (mm) FL (mm) HL (mm) EFW (g) 09/13/2024 20w 4d 48.4 52% 180.9 38% 151.3 36% 38.5 92% 31.8 51% 404 76% 10/11/2024 24w 4d 61.6 59% 227.1 36% 188.4 15% 45.2 49% 680 28% COMMENT ----- Patient's name and date of were verified by the litigation paralegal prior to the exam IMPRESSION ----- 1. Single living fetus with a gestational age of 24w 4d, based on the reported clinical dates. 2. Current growth parameters are consistent with the stated EDC. The size is appropriate for gestational age at 28% percentile (680 g). 3. Unremarkable limited anatomy noted. A screening echocardiogram was performed today secondary to IVF. Satisfactory quality examination was obtained of the fetus. Cardiac situs, size and axis were normal. The four chamber view of the heart appeared normal. There were appropriately sized atrial and ventricular chambers, and normal appearing atrioventricular valves. Further evaluation of the ventricular outflow tracts showed two great vessels which appear to arise from the appropriate ventricles. The foramen ovale was patent with right to left shunting. The superior and inferior vena cava return to the right atrium. There are at least two pulmonary veins draining into the left atrium. There was no other signs of significant intracardiac anatomic abnormality. Normal cardiac rate, contractility and rhythm were demonstrated. Color and pulsed-wave Doppler evaluation of the atrioventricular and semilunar valves were within normal limits. Two dimensional and Doppler interrogation of the aortic and ductal arches were within normal limits. There is no evidence of pericardial effusion. The ductus venosus is normal. closure of the ductus arteriosus and foramen ovale cannot be predicted on the basis of evaluation. Additionally, small ventricular or atrial septal defects and mild valve abnormalities cannot be definitely ruled out at this time. diagnosis of coarctation of the aorta is limited secondary to patency of the ductus arteriosus. 4. The amniotic fluid is normal for gestational age (MVP:3.8 cm). 5. POSTERIOR LOW-LYING PLACENTA. 6. Cephalic presentation. Comments: echocardiogram may not be able to detect all abnormalities such as very small ventricular septal defects, subtle valve abnormalities or coarctation of the aorta, nor can it predict persistence of structures such as patent foramen ovale or patent ductus arteriosus. Of note, transvaginal evaluation of the placenta was not performed. Recommendations: - Recommend interval exam at 28-32 weeks to evaluate placenta location. Thank you for allowing us to participate in the care of this patient. Procedure Note Catrachita Morris MD - 10/11/2024 STL FOLLOW UP ----- Pat. Name:Kilo RAMON Date:10/11/2024 7:18am Pat. NO: [id number] MD:SURJIT FREED [facility]agon[facility] RDMS :1995Age:28 ----- INDICATION ----- IVF Resulting from Assistive Reproductive Technique CODING ----- Diagnoses Z3A.24: Weeks of gestation O09.812: Supervision of resulting fromassisted reproductive technology Procedures [id number]: Ultrasound, uterus, real time withimage documentation, follow up, transabdominal approach per fetus 97208: Echocardiography, , cardiovascularsystem, real time with image documentation (2D), with or without M-mode recording 67503: Doppler echocardiography color flowvelocity mapping 40071: Doppler echocardiography, ,cardiovascular system, pulsed wave and/or continuous wave with spectral display; complete METHOD ----- Transabdominal ultrasound examination ----- Ernst . Number of fetuses: 1 DATING ----- GA by prior [id number] w + 4 d KRISH by prior assessment:01/27/2025 Ultrasound examination on:10/11/2024 GA by U/S based upon:AC, BPD, EFW, Femur, HC GA by U/S24 w + 3 d KRISH by U/S:01/28/2025 Method of dating:Restore dating from previous exam Assigned:based on stated KRISH, selected on 09/13/2024 Assigned GA24 w + 4 d Assigned KRISH:01/27/2025 BIOMETRY ----- BPD 61.6 mm 25w 0d 59%Hadlock OFD 80.3 mm 26w 1d 92%Dalton HC 227.1 mm 24w 5d 36%Hadlock AC 188.4 mm 23w 4d 15%Hadlock Femur 45.2 mm 25w 0d 49%Hadlock HC / AC 1.21 89%Nicolaides Weight Calculation: EFW 680 g 24w 1d 28%Hadlock EFW (lb,oz) 1 lb 8 oz EFW by Hadlock ([id number]) Head / Face / Neck Biometry: Behavioral Sciences Department Chair 4.4mm Thorax / Lungs Biometry: Thoracic circ 150.0 mm4% [place] Thoracic area 17.7 cm ThC / AC 0.80 Heart / Great Vessels Biometry: Cardiac axis 32 Cardiac circ 87.9mm Cardiac area 5.9cm CC / ThC 0.59 CA / Dania 0.34 PA main 5.0 mm Ductus art. 2.1 mm<1% Aden Rt PA branch 2.0 mm Lt PA branch 2.3 mm Ao asc 3.7 mm Ao isthmus 2.8 mm Ao desc 3.3 mm PA main / Ao asc 1.35 McGoon Index mod. 1.3 Ao isthmus / Ductus art. 1.33 IVC 3.1mm SVC 2.9mm Extremities / Bony Struc Biometry: FL / BPD 0.73 FL / HC 0.20 FL / AC 0.24 GENERAL EVALUATION ----- Cardiac activity present. FHR 143 bpm. movements: present.Presentation: cephalic Placenta: Placental site: posterior, low lying Umbilical cord: Cord vessels: 3 vessel cord. Insertion site: placentalinsertion: normal Amniotic fluid: Amount of AF: normal amount. MVP 3.8 cm ECHOCARDIOGRAM ----- Situs situs solitus (normal) Cardiac position levocardia (normal) Cardiac axis normal Cardiac size normal (approx. 1/3 ofthoracic area) Cardiac rhythm regular (normal) 4-chamber view normal LVOT view normal RVOT view normal 3-vessel view normal 8-raveqs-iubamyd view normal High short axis view normal Low short axis view normal Aortic arch view normal Ductal arch view normal Bicaval view normal Venous-atrial connections normal size and morphology AV connections normal alignment VA connections normal size and morphology IVC Normal SVC Normal Pulmonary veins normal size and morphology Right atrium Normal Left atrium Normal Atrial septum normal size and morphology Foramen ovale normal (in the centralthird/half, flap valve in left atrium) Right ventricle Normal Left ventricle Normal Ventricular septum normal size and morphology Tricuspid valve normal size and morphology Mitral valve normal size and morphology Pulmonary valve normal size and morphology Aortic valve normal size and morphology Cross-over gr. arteries anterior great artery(confirmed to be the pulmonary artery by its branching) which crosses the course of theproximal aorta, indicative of normal relationship of the great arteries Main PA the main pulmonary artery canbe seen bifurcating into the arterial duct and the right pulmonary artery Pulmonary arteries Normal Ascending aorta normal size and morphology Ductal arch Normal Aortic arch Normal Brachioceph. arteries normal size and morphology Descending aorta normal size and morphology Ductus venosus Normal Echogenic focus no Linear insertion of AV valves no Pericardial effusion no Cardiac Biometry: RA width diast 10.1 mm RV width diast 8.7 mm19% Aden RV wall diast 1.8 mm 5%Aden LA width diast 8.8 mm LV width diast 8.9 mm24% Aden LV wall diast 1.8 mm 5%Aden IV Septum diast 1.7 mm4% Aden LVOT diam 3.3mm LVOT area 9.0mm TV annulus diast 7.1mm PV annulus syst 5.7mm MV annulus diast 6.2mm AoV annulus syst 3.1mm MV annulus diast / TV annulus diast 0.87 AoV annulus syst / PV annulus syst 0.54 Heart Z-Scores: Z- FL Z- BPD Z-GA Z- EFW Zscore by RV width diast 8.7 mm -0.74 -0.41-0.33 Giles LV width diast 8.9 mm -0.30 0.040.13 Giles TV annulus 7.1 mm -0.77 -0.44-0.31 Giles diast MV annulus 6.2 mm -1.72 -1.26-1.14 Giles diast PV annulus 5.7 mm 1.46 1.741.85 Giles syst AoV annulus 3.1 mm -2.27 -1.62-1.53 Giles syst PA main 5.0 mm -0.30 0.010.12 Giles Ductus art. 2.1 mm -2.30 -1.78-1.90 Giles Rt PA branch 2.0 mm -1.67 -1.38-1.33 Giles Lt PA branch 2.3 mm -0.39 -0.09-0.11 Giles Ao asc 3.7 mm -1.68 -1.33-1.09 Giles Ao isthmus 2.8 mm -0.25 -0.43-0.34 0.24 Mu Ao desc 3.3 mm -1.31 -0.84-0.80 Chan IVC 3.1 mm 0.37 0.600.65 Giles Cardiac Doppler: Tricuspid Valve: E-wave 26.51 cm/s3% Hecher A-wave 48.72 cm/s16% Hecher E / A 0.543% Hecher Mitral Valve: E-wave 33.32 cm/s49% Hecher A-wave 49.08 cm/s36% Hecher E / A 0.6873% Hecher Pulmonary Valve: Vmax 73.66 cm/s Left Ventricular Outflow Tract: Vmax 72.20cm/s Peak PG 2.09mmHg DOPPLER ----- Aortic Isthmus: PS 110.04 cm/s Ductus Arteriosus: PS 98.21cm/s ANATOMY ----- The following structures appear normal: Head / Neck Cranium. Lateral ventricles. Cavum septipellucidi. Heart / Thorax 4-chamber view. RVOT view. LVOT view. 3-vesselview. 4-wmjkot-bdkagbf view. Diaphragm. Abdomen Stomach. Kidneys. Bladder. sex: female. GROWTH OVERVIEW ----- Exam date GA BPD (mm) HC (mm) AC (mm) FL(mm) HL (mm) EFW (g) 09/13/2024 20w 4d 48.4 52% 180.9 38% 151.3 36%38.5 92% 31.8 51% 404 76% 10/11/2024 24w 4d 61.6 59% 227.1 36% 188.4 15%45.2 49% 680 28% COMMENT ----- Patient's name and date of were verified by the litigation paralegal prior tothe exam IMPRESSION ----- 1. Single living fetus with a gestational age of 24w 4d, based on thereported clinical dates. 2. Current growth parameters are consistent with the stated EDC. The fetalsize is appropriate for gestational age at 28% percentile (680 g). 3. Unremarkable limited anatomy noted. A screening fetalechocardiogram was performed today secondary to IVF. Satisfactory quality examination was obtained of the fetus. Cardiac situs, size andaxis were normal. The four chamber view of the heart appeared normal. There were appropriately sized atrial and ventricularchambers, and normal appearing atrioventricular valves. Further evaluation of the ventricular outflow tracts showed two greatvessels which appear to arise from the appropriate ventricles. The foramen ovale was patent with right to left shunting. Thesuperior and inferior vena cava return to the right atrium. There are at least two pulmonary veins draining into the leftatrium. There was no other signs of significant intracardiac anatomic abnormality. Normal cardiac rate, contractility andrhythm were demonstrated. Color and pulsed-wave Doppler evaluation of the atrioventricular and semilunar valves were within normallimits. Two dimensional and Doppler interrogation of the aortic and ductal arches were within normal limits. There is noevidence of pericardial effusion. The ductus venosus is normal. closure of the ductus arteriosus and foramen ovalecannot be predicted on the basis of evaluation. Additionally, small ventricular or atrial septal defects and mild valveabnormalities cannot be definitely ruled out at this time. diagnosis of coarctation of the aorta is limited secondaryto patency of the ductus arteriosus. 4. The amniotic fluid is normal for gestational age (MVP:3.8 cm). 5. POSTERIOR LOW-LYING PLACENTA. 6. Cephalic presentation. Comments: echocardiogram may not be able to detect all abnormalitiessuch as very small ventricular septal defects, subtle valve abnormalities or coarctation of the aorta, nor can it predictpostnatal persistence of structures such as patent foramen ovale or patent ductus arteriosus. Of note, transvaginalevaluation of the placenta was not performed. Recommendations: - Recommend interval exam at 28-32 weeks to evaluate placenta location. Thank you for allowing us to participate in the care of this patient. us Catrachita Morris MD US ORDERABLES Final Result * US OB 14+ WKS SINGLE GEST (09/13/2024 8:32 AM [employer]) Anatomical Region Laterality Modality Pelvis Ultrasound 09/13/2024 7:17 AM [employer] Narrative 09/13/2024 8:37 AM [employer] STL COMP ----- Pat. Name: FATMATA RAMON Study Date: 09/13/2024 7:17am Pat. NO: [id number] Referring MD: SURJIT FREED MD Site: [facility] Director: Mary Wagoner RDMS : 1995 Age: 28 ----- INDICATION ----- Anatomy Survey IVF Resulting from Assistive PGA wnl. Declined NIPT. Reproductive Technique CODING ----- Diagnoses Z3A.20: Weeks of gestation O09.812: Supervision of resulting from assisted reproductive technology Z36.3: Encounter for screening for malformations Procedures [id number]: Ultrasound, uterus, real time with image documentation, [...] 0 lb 14 oz EFW by Hadlock ([id number]) Head / Face / Neck Biometry: Behavioral Sciences Department Chair 5.2 mm CM 5.6 mm 65% Nicolaides [...] view. RVOT view. LVOT view. 3-vessel view. 3-ompaqp-wpdjmni view. Situs. Aortic arch view. Ductal arch [...] and date of were verified by the litigation paralegal before the exam IMPRESSION ----- IUP at [...] Pat. Name:Kilo RAMON Date:09/13/2024 7:17am Pat. NO: [id number] MD:SURJIT FREED MD [facility]agon[facility] RDMS :1995Age:28 ----- INDICATION ----- Anatomy Survey IVF Resulting from Assistive PGA wnl. DeclinedNIPT. Reproductive Technique CODING ----- Diagnoses Z3A.20: Weeks of gestation O09.812: Supervision of resulting fromassisted reproductive technology Z36.3: Encounter for screening formalformations Procedures 01183: Ultrasound, uterus, real time withimage documentation, and maternal evaluation plus detailed anatomic examination,transabdominal approach METHOD ----- Transabdominal ultrasound examination ----- Ernst . Number of fetuses: 1 DATING ----- Method of dating:based on stated KRISH GA by prior [id number] w + 4 d KRISH by prior [...] Hadlock Cerebellum tr 21.3 mm 20w 6d54% Tellez Nuchal fold 4.7 mm AC 151.3 mm 20w 2d36% Hadlock Femur 38.5 mm 22w 2d92% Hadlock Humerus 31.8 mm 20w 4d51% Dalton HC / AC 1.20 68%Nicolaides Weight Calculation: EFW 404 g 21w 0d 76%Hadlock EFW (lb,oz) 0 lb 14 oz EFW by Hadlock ([id number]) Head / Face / Neck Biometry: Behavioral Sciences Department Chair 5.2 mm CM 5.6 mm 65%Nicolaides Inner [...] 4-chamber view. RVOT view. LVOT view. 3-vesselview. 8-xnjlee-mnvsiou view. Situs. Aortic arch view. Ductal arch [...] and date of were verified by the litigation paralegal beforethe exam IMPRESSION ----- IUP at 20w [...] Last 3 Months Insurance [facility]
--- OUTSIDE RECORDS SUMMARY | 2024-10-26 07:21 | XMS_ITS | Encounter Summary ---
Author Organization [facility] Address [address] [place] [address] Care Team Providers Care Benzol Operator Name Role Phone Unavailable Primary Care Provider Unavailabl e Encounter Details Date Type Department Care Team (Latest Contact Info) Description 02/16/2024 Lab Requisition [facility] [address] [place] [address] Carla Chavez MD [address] [facility] [address] [place] [address] Hyperstimulation of ovaries Social History [...] - 10.4 mg/dL 02/16/2024 12:56 PM CDT [facility] Anion Gap 9 6 - 16 mmol/L 02/16/2024 12:56 PM CDT [facility] BUN 10 5.3 - 18.7 mg/dL 02/16/2024 12:56 PM CDT [facility] Creatinine 0.79 0.57 - 1.11 mg/dL 02/16/2024 12:56 PM CDT [facility] Alkaline Phosphatase 56 40 - 150 U/L 02/16/2024 12:56 PM CDT [facility] ALT 18 0 - 55 U/L 02/16/2024 12:56 PM CDT [facility] AST 13 5 - 34 U/L 02/16/2024 12:56 PM CDT [facility] Protein Total 6.6 6.4 - 8.3 gm/dL 02/16/2024 12:56 PM CDT [facility] Albumin 3.6 3.4 - 5.0 gm/dL 02/16/2024 12:56 PM CDT [facility] Bilirubin Total 0.6 0.2 - 1.2 mg/dL 02/16/2024 12:56 PM CDT [facility] eGFR by CKD-EPI >90 >=90 mL/min/1.7 3 m2 02/16/2024 12:56 PM CDT [facility] Blood BLOOD SPECIMEN / Unknown Venipuncture / Unknown 02/16/2024 12:15 PM CDT 02/16/2024 12:15 PM CDT Carla Chavez MD LAB - CHEMISTR Y ORDERABLES [facility] [address] [place] [address] * (ABNORMAL) CBC WITH DIFFERENTIAL (02/16/2024 12:15 PM CDT) [facility] Signature WBC 7.4 4.0 - 10.7 x10E9/L 02/16/2024 12:32 PM CDT [facility] RBC Count 3.96 3.90 - 5.20 x10E12/L 02/16/2024 12:32 PM CDT [facility] Hemoglobin 11.4(L) 11.9 - 15.8 g/dL 02/16/2024 12:32 PM CDT [facility] Hematocrit 35.5 34.8 - 46.1 % 02/16/2024 12:32 PM CDT [facility] MCV 89.6 80.0 - 98.0 fL 02/16/2024 12:32 PM CDT [facility] MCH 28.8 26.7 - 33.6 pg 02/16/2024 12:32 PM CDT [facility] MCHC 32.1 31.7 - 36.3 g/dL 02/16/2024 12:32 PM [facility] RDW-CV 11.9 11.3 - 14.8 % 02/16/2024 12:32 PM [facility] Platelet Count 172 150 - 420 x10E9/L 02/16/2024 12:32 PM [facility] MPV 10.6 7.8 - 11.4 fL 02/16/2024 12:32 PM [facility] Neutrophil % 74.5(H) 41.0 - 74.0 % 02/16/2024 12:32 PM [facility] Lymphocyte % 13.4(L) 17.0 - 47.0 % 02/16/2024 12:32 PM [facility] Monocyte % 10.0 3.0 - 11.0 % 02/16/2024 12:32 PM CDT [facility] Eosinophil % 1.4 0.0 - 7.0 % 02/16/2024 12:32 PM [facility] Basophil % 0.3 0.0 - 1.6 % 02/16/2024 12:32 PM CDT [facility] Immature Granulocytes % 0.4 0.0 - 1.0 % 02/16/2024 12:32 PM [facility] Neutrophil Absolute 5.52 1.60 - 7.50 x10E9/L 02/16/2024 12:32 PM CDT [facility] Lymphocyte Absolute 0.99(L) 1.00 - 4.40 x10E9/L 02/16/2024 12:32 PM CDT [facility] Monocyte Absolute 0.74 0.15 - 1.00 x10E9/L 02/16/2024 12:32 PM CDT [facility] Eosinophil Absolute 0.10 0.00 - 0.60 x10E9/L 02/16/2024 12:32 PM CDT [facility] Basophil Absolute 0.02 0.00 - 0.13 x10E9/L 02/16/2024 12:32 PM CDT [facility] Blood BLOOD SPECIMEN / Unknown 02/16/2024 12:15 PM CDT 02/16/2024 12:15 PM CDT Carla Chavez MD LAB - HEMATOLO GY ORDERABLES Performing Organization Address City/State/[facility] Co de Phone Number [facility] [address] [place] [address] documented in this encounter Visit Diagnoses Diagnosis Hyperstimulation of ovaries Other ovarian hyperfunction documented in this encounter
--- OUTSIDE RECORDS SUMMARY | 2024-10-26 07:21 | XMS_ITS | Clinical Summary ---
Author Organization [facility] [employer] Address [address] [place] [address] Care Team Providers Care Gridcap Machine Operator Name Role Phone Unavailable Primary Care Provider Unavailabl e Source Comments [facility] [employer],non-owned Affiliates and Associated Physician Practices is amultiple site organization consisting of ambulatory clinics and hospital sitesin [place], [place], [place] and [place]. This disclosure is being madepursuant to the Care Everywhere program and may not contain all information available regarding this patient. Last updated 18.[facility] [employer] Social History Tobacco Use Types Packs/Day Years [...]
--- OUTSIDE RECORDS SUMMARY | 2024-10-26 07:21 | XMS_ITS ---
Author Organization [facility] Address [address] [place] [address] Care Team Providers Care Him Tech Name Role Phone Davis Villeda Primary Care Provider [phone] Allergies Allergen (clinical drug ingredient) Drug/Non Drug [...] 29.37 kg/m2 07/20/2024 Oximetry 98 % 07/20/2024 Height-cm 182.88 cm 07/20/2024 Weight-kg 98.25 kg 07/20/2024 Encounters Encounter Location Date Provider Diagnosis [address] [address] 07/20/2024 Davis Villeda Hypothyroidism, unspecified E03.9 ; [...] Kenzie en, 03/18/2025 10:30:00 AM, [address] [place], [address], [phone] Progress Notes * Yuval RAMONBalaOB:[birth year] (28 yo F)Acc No.[id number]:07/20/2024 Patient: Fatmata Amado Provider: Sirena Villeda MD :1995 A ge:28 Y S ex:Female Date:07/20/2024 Address:[address] [place] [address] Subjective: * Chief Complaints: * 1 . 6 month check up. * HPI: H PI: Fatty liver -- Monitoring through bloodwork. Last completed on 01/02/24 showed ALT (59) and AST (28). Pt. also had US on 03/2023 that showed Hepatic steatosis. Hypothyroidism -- Dr. Villeda took over managing from Fatmata Cordoba, Flavor Maker. She is currently on Levo 75mcg daily and last labs on 01/02/24 showed TSH 1.71 and T4 0.90. -- [facility]. is 12 weeks [facility] [place] Pt. presents with no concerns today. The [...] Routine check-up) Billing Information: * Visit Code: 02673 OFFICE VISIT MODERATE. * Procedure Codes: * AL WIRER Sign off status: Completed true * Provider: Sirena Villeda MD Date: 09/20/2023 Generated for Shira capps/Vilma/Queta on: 0 10/26/2024 07:21 AM CDT
--- OUTSIDE RECORDS SUMMARY | 2024-10-26 07:21 | XMS_ITS | Patient Health Record ---
Author Organization [facility] Address [address] [place] [address] Care Team Providers Care Music Ministries Director Name Role Phone Davis Villeda Primary Care Provider [phone] Migration, Provider Unavailable Unavailable Allergies Allergen (clinical [...] pg MCHC 34.6 g/dL MCV 86.5 fL Vermillion Absolute 0.5 x10*3/mcL [place]illion Auto 7.6 % MPV 9.2 fL Neutro [...] Problem Status W/U Status Risk Notes Problem Fatigue (42000949) Other fatigue (R53.83) 09/06/19 17 Problem resolved confirmed Problem Malaise and fatigue (626622472) Other malaise and fatigue (780.79) 09/06/19 17 Problem resolved confirmed Problem Hypothyroidism (15758823) Hypothyroidism, unspecified (E03.9) 05/27/20 23 Active confirmed Problem Eruption of skin (807753656) Rash and other nonspecific skin eruption (R21) 09/06/19 17 Problem resolved confirmed Problem Acute upper respiratory infection (95537444) Acute upper respiratory infection, unspecified (J06.9) 05/08/20 18 Problem resolved confirmed Problem General examination of patient (247795727) Routine general medical examination at health care facility (V70.0) 12/08/19 17 Problem resolved confirmed Problem Acute upper respiratory infection (61015948) Acute upper respiratory infections of unspecified site (465.9) 09/14/19 17 Problem resolved confirmed Problem Fatty liver (725450552) Fatty (change of) liver, not elsewhere classified (K76.0) 01/02/20 24 Active confirmed Vital Signs Heart Rate 80 /min 07/20/2024 Temperature 98.5 degrees Fahrenheit 07/20/2024 Respiratory Rate 16 /min 01/02/2024 Height-cm 182.88 cm 07/20/2024 Blood pressure diastolic 70 mm Hg 07/20/2024 Oximetry 98 % 07/20/2024 Weight-kg 98.25 kg 07/20/2024 Height 72.00 in 07/20/2024 Blood pressure systolic 110 mm Hg 07/20/2024 Weight 216.6 lbs 07/20/2024 BMI 29.37 kg/m2 07/20/2024 Encounters Encounter Location Date Provider Diagnosis [address] [address] 01/02/2024 Davis Villeda Unspecified hearing loss, unspecified ear H91.90 ; Fatty (change of) liver, not elsewhere classified K76.0 and Hypothyroidism, unspecified E03.[address] [address] 07/20/2024 Davis Villeda Hypothyroidism, unspecified E03.9 ; Fatty (change of) liver, not elsewhere classified K76.0 and Second trimester Z34.[address] [address] 06/23/2024 Provider Migration [address] [address] 06/24/2024 Provider Migration Assessments Encounter Date Diagnosis [...] Provider Name:Davis giordano, 03/18/2025 10:30:00 AM, [address] [facility], [place], [address], [phone] Insurance Providers Payer Name Payer Address Payer Phone Subscriber Number Group Number Insured Name Patient Relationship to Insured Coverage Start Date Coverage End Date BCBSIL [address] [place] [address] [id number] Fatmata Ulloa Self - patient is the insured 4 Medical (General) History Medical History History ICD Code Thyroid disorder Liver enzyme elevation Slight hearing loss Surgical History Surgery Date(Month/Year) Appendectomy 09/06/2016
--- OUTSIDE RECORDS SUMMARY | 2024-10-26 07:21 | XMS_ITS ---
Author Organization [facility] Address [address] [place] [address] Care Team Providers Care Ginger Farmer Name Role Phone Edithsonnyaden Davis Primary Care Provider [phone] Migration, Provider Unavailable Unavailable Allergies Allergen (clinical drug ingredient) Drug/Non Drug Allergy documented on EMR Reaction Allergy Type Onset Date Status amoxicillin Amoxicillin rash as an infant Drug Allergy 01/27/2022 Active Keflex nausea and abdominal cramping Drug Allergy 01/27/2022 Active REASON FOR VISIT EMR-[facility] Medications Medication SIG (Take, Route, Frequency, Duration) Notes Start Date End Date Status Synthroid 75 MCG 1 Oral every evening ; Duration: 90 06/11/2024 03/07/2025 Active Levothyroxine Sodium 50 MCG 1 Oral every other day; Duration: 90 06/11/2024 03/07/2025 Active Encounters Encounter Location Date Provider Diagnosis [address] [address] 06/24/2024 Provider Migration Plan Of Treatment Next Appt Details Provider Name:Davis giordano, 03/18/2025 10:30:00 AM, [address] [place] [address], [address], [phone] Progress Notes * Sarahi RAMONOB:[birth year] (28 yo F)Acc No.[id number]:06/24/2024 Patient: Fatmata MCNEIL :1995 A ge:28 Y S ex:Female Address:[address] [place] [address] [place], [address] Subjective: * Chief Complaints: * E MR-Armando [...] an infant - Allergy - Onset Date 01/27/2022Keflex: nausea and abdominal cramping - Allergy - Onset Date 01/27/2022 Objective: * Physical Examination: Plan: * Treatment: * Procedure Codes: Billing Information: * Visit Code: * Procedure Codes: * * Date:
--- OUTSIDE RECORDS SUMMARY | 2024-10-26 07:21 | XMS_ITS | Referral Summary ---
Author Organization [facility] Address [address] [place] [address] Care Team Providers Care Elevator Conductor Name Role Phone Carla Chavez MD Primary [...] on file Legal Sex Female 11:33 PM CHECK AND TRANSFER BEADER Gender Identity Not on file Sexual Orientation Not on file Plan of Treatment Not on [place] [address] [facility] [place] [address] Care Teams Elevator Conductor Relationship Specialty Start Date End Date Carla Chavez MD PCP - General Obstetrics and Gynecology 07/08/23
--- OUTSIDE RECORDS SUMMARY | 2024-10-26 07:22 | XMS_ITS | Clinical Summary ---
Author Organization [facility] Address [facility] [place] [address] Care Team Providers Care Milk Route Supervisor Name Role Phone Davis Villeda MD Primary Care Provider [phone] Allergies Active Allergy Reactions Criticality Noted Date [...] Date of Delivery Comme nts Yes 01/27/2025 Immunizations Name Administration Dates Next Due Dtap 04/28/2000,04/02/1997 Dtap (Generic) 07/06/1996,04/27/1996,02/27/1996 Dtp/Hib 07/06/1996,04/27/1996,02/27/1996 Hepatitis A Vaccine - 2 Dose 09/26/2013,03/05/20 13 Hepatitis B 07/06/1996,02/27/1996,1995 Hepatitis B Pediatric 07/06/1996,02/27/1996,0611/1995 Hib (Generic) 04/02/1997,07/06/1996,04/27/1996 ,02/27/1996 MMR 04/28/2000,01/01/1997 Menactra [...] Comments Blood Pressure 122/73 07/15/2024 1:15 AM TRACTOR TECHNICIAN Pulse 107 07/15/2024 12:41 AM TRACTOR TECHNICIAN Temperature 36.6 C (97.8 F) 07/15/2024 12:41 AM TRACTOR TECHNICIAN Respiratory Rate 16 07/15/2024 12:41 AM TRACTOR TECHNICIAN Oxygen Saturation 96% 07/15/2024 1:15 AM TRACTOR TECHNICIAN Inhaled Oxygen Concentration - - Weight 97.5 kg (215 lb) 07/15/2024 12:41 AM TRACTOR TECHNICIAN Height 185.4 cm (6' 1 ) 07/15/2024 12:41 AM TRACTOR TECHNICIAN Body Mass Index 28.37 07/15/2024 12:41 AM TRACTOR TECHNICIAN Plan of Treatment Health Maintenance Due Date Last Done Comments Hepatitis C 12/27/2013 DTaP, Tdap and Td Vaccines (7 - Td or Tdap) 11/07/2018 11/07/2008, 04/28/2000, 04/02/1997, Additional history exists Annual Physical 05/10/2023 05/10/2022, 04/24, 01/14/2020 COVID-19 Vaccine ( season) 2024 Cervical Cancer Screening Pap Smear (Age 21 [...] Procedure Name Priority Date/Time Associated Diagnosis Comments CYTOPATH CERV/VAG THIN LAYER Routine 05/10/2022 10:14 AM CDT from Last 3 Months or Most Recently Relevant to Health Maintenance Results * Cytopath Cerv/Vag Thin Layer (05/10/2022 10:14 AM CDT) THIN PREP PAP [address] [address] Department of Pathology Pathology Report CERVICAL/VAGINAL PAP SMEAR REPORT Name: FATMATA RAMON Age: 6 1995 (Age: 26) Location: [facility] Sex: F Collected Date: 05/10/2022 Hospital #: [id number] Date Received: 05/12/2022 Date Reported: 05/13/2022 Provider: [...] is not effective in detecting cervical adenocarcinoma. [facility] 05/10/2022 10:1 4 AM CDT 05/12/2022 10:14 AM CDT Comment:CERVICAL/ENDOCERVICA L us Lukasz REGALADO PATHOLOGY/CYTOLOGY ORDERABLE S Final Result [facility] [address] [id number], from Last 3 Months or Most Recently Relevant to Health Maintenance Insurance Care Teams Milk Route Supervisor Relationship Specialty Start Date End Date Davis Villeda MD [address] [place] [address] PCP - General PEDIATRICS 07/06/23
--- OUTSIDE RECORDS SUMMARY | 2024-10-26 07:22 | XMS_ITS | Clinical Summary ---
Author Organization [facility] Address [address] [place] [address] Care Team Providers Care Dairy Scientist Name Role Phone Carla Chavez MD Primary [...] on file Legal Sex Female 11:33 PM CENTRAL STERILE TECH Gender Identity Not on file Sexual Orientation Not on file Plan of Treatment Health Maintenance Due Date Last Done Comments Cervical Cancer Screening 1995 Depression Screening 1995 Hepatitis C Screening 1995 Varicella Vaccines (1 of 2 - 13+ 2-dose series) 12/27/2008 Regular Well Visit/Exam 18-64 12/27/2013 DTaP/Tdap/Td Vaccine (7 - Td or Tdap) 11/07/2018 11/07/2008, 04/28/2000, 04/28/2000, Additional history exists Influenza Vaccine (Season Ended) 2025 Hepatitis B Screening Completed 07/06/1996 , 07/06/1996, 02/27/1996, Additional history exists HPV Vaccines Aged Out No longer eligi ble based on patient's age to complete this topic Pneumococcal vaccine <65 Aged Out No longer eligible based on patient's age to [place] [address] [facility] Care Teams Dairy Scientist Relationship Specialty Start Date End Date Carla Chavez MD PCP - General Obstetrics and Gynecology 07/08/23
[2024-10-26 07:42] LABS: Hematocrit 36.1 % (37.0-47.0); Hemoglobin 11.9 g/dL (12.0-15.0); Mean Corpuscular Hemoglobin 28.8 pg (26-34); Mean Corpuscular Volume 87.4 fl (80-100); Mean Platelet Volume 9.8 fl (7.4-10.4); Platelet Count Result 181 k/mm3 (150-375); Red Blood Count 4.13 M/mm3 (4.2-5.4); Red Cell Distribution Width 13.2 % (11.5-14.5); White Blood Count 6.1 K/mm3 (4.5-10.0)
[2024-10-26 07:54] LABS: Glucose Fasting Gestational 93 mg/dL (>/=95)
[2024-10-26 09:29] LABS: Glucose 1 Hour Gest 204 mg/dL (>/=180)
[2024-10-26 10:28] LABS: Glucose 2 Hour Gest 171 mg/dL (>/= 155)
[2024-10-26 11:21] LABS: Glucose 3 Hour Gest 121 mg/dL (>/=140)
== END 2024-10-26 07:16 | disposition home or self-care (01) ==
LOC: ANHLAB 07:17
PROVIDERS: PCP Pediatrics; Visit Provider Nurse Practitioner Obstetrics & Gynecology
DX: R73.09 Other abnormal glucose (principal); Z34.90 Encounter for supervision of normal pregnancy, unspecified, unspecified trimester; Z3A.00 Weeks of gestation of pregnancy not specified
CPT/HCPCS: 36415; 82951; 82952; 85027

== ENCOUNTER 2024-11-27 10:10 | Outpatient (RCR) | payer BC, SELFPAY ==
[2024-11-27 11:42] VITALS: BP 125/67; PULSE 90
== END 2024-12-05 16:37 | disposition home or self-care (01) ==
LOC: ANHOBOP 10:10
PROVIDERS: Visit Provider Obstetrics & Gynecology
DX: O36.8130 Decreased fetal movements, third trimester, not applicable or unspecified (principal); Z3A.31 31 weeks gestation of pregnancy
CPT/HCPCS: 59025

== ENCOUNTER 2024-11-29 15:36 | Outpatient (CLI) | payer BC, SELFPAY ==
--- OUTSIDE RECORDS SUMMARY | 2024-11-29 15:39 | XMS_ITS | Clinical Summary ---
Author Organization [facility] Address [address] [place] [address] Care Team Providers Care Head Coach Name Role Phone Unavailable Primary Care Provider Unavailabl e Source Comments [facility],non-owned Affiliates and Associated Physician Practices is amultiple site organization consisting of ambulatory clinics and hospital sitesin [place], [place], [place] and [place]. This disclosure is being madepursuant to the Care Everywhere program and may not contain all information available regarding this patient. Last updated 18.[facility] Allergies Active Allergy Reactions Criticality Noted Date Comments Amoxicillin Urticaria Medium 11/27/2024 Red face Cephalexin Rash Medium 11/27/2024 Medications * Be aware that medications may not be up to date on this document. Alwaysverify current medications with the patient. No known medications Social History Tobacco Use Types Packs/Day Years Used Date Smoking Tobacco: Never Assessed Comments Yes Sex and Gender Information Value Date Recorded Sex Assigned at Not on file Legal Sex Female 12:13 PM CDT Gender Identity Not on file Sexual Orientation Not on file Plan of Treatment Upcoming Encounters Date Type Department Care Team (Late st Contact Info) Description 12/04/2024 8:15 AM CDT Hospital Encounter [facility] [place] [address] Health Maintenance Due Date Last Done Comments PAP SMEAR 1995 HIV SCREENING 12/27/2010 HEPATITIS C SCREENING 12/23/2013 DTAP/TDAP/TD VACCINES (1 - Tdap) 12/27/2014 HEPATITIS B VACCINE (1 of 3 - 19+ 3-dose series) 12/27/2014 COVID-19 VACCINE (2023-2 5 season) 2024 DEPRESSION SCREENING 07/25/2024 INFLUENZA VACCINE (Season Ended) 2025 ZOSTER VACCINE (1 of 2) 12/27/2045 Respiratory Syncytial Virus (RSV) Vaccine Pt: or over 60 yrs (1 - 1-dose 75+ series) 12/27/2070 HIB VACCINE Aged Out No longer eligi [...]
--- OUTSIDE RECORDS SUMMARY | 2024-11-29 15:39 | XMS_ITS | Clinical Summary ---
Author Organization [facility] Address [address] [place] [address] Phone Care Team Providers Care Assistant Director Of Public Works Name Role Phone Unavailable Primary Care Provider Unavailabl e Encounters Date Type Department Care Team Description 11/08/2024 8:41 AM CDT - 11/08/2024 11:59 PM CDT Hospital Encounter [facility] Isaias Cotton [address] [place] [phone] Surjit Freed MD Discharge Disposition: Home or Self Care 10/23/2024 External Device Data STL ABSTRACTION Provider, Abstract 10/11/2024 7:13 AM CDT - 10/11/2024 11:59 PM CDT Hospital Encounter [facility] Isaias Cotton [address] [place] [phone] Catrachita Morris MD Discharge Disposition: Home or Self Care 10/11/2024 7:13 AM CDT - 10/11/2024 11:59 PM CDT Hospital Encounter [facility] Isaias Cotton [address] [place] [phone] Catrachita Morris MD Discharge Disposition: Home or Self Care 09/29/2024 External Device Data STL ABSTRACTION Provider, Abstract 09/28/2024 External Device Data STL ABSTRACTION Provider, Abstract 09/18/2024 External Device Data STL ABSTRACTION Provider, Abstract 09/18/2024 External Device Data STL ABSTRACTION Provider, Abstract 09/18/2024 External Device Data STL ABSTRACTION Provider, Abstract 09/13/2024 7:09 AM EDGE BLACKER - 09/13/2024 11:59 PM EDGE BLACKER Hospital Encounter [facility] [address] Isaias Cotton [address] [place] [address] Surjit Freed MD Discharge Disposition: Home or Self Care from Last 3 Months Social History Tobacco Use Types Packs/Day Years Used Date Smoking Tobacco: Never Assessed Comments Unknown Sex and Gender Information Value Date Recorded Sex Assigned at Not on file Legal Sex Female 3:54 PM EDGE BLACKER Gender Identity Not on file Sexual Orientation Not on file Plan of Treatment Health Maintenance Due Date Last Done Comments HPV/Cotest (21-29) 12/27/2016 DTAP/TDAP/TD VACCINES (7 - Td or Tdap) 11/07/2018 11/07/2008, 04/28/2000, 04/28/2000, Additional history exists INFLUENZA VACCINE (#1) 2024 CERVICAL CANCER SCREENING 05/10/2025 PAP SMEAR 05/10/2025 05/10/2022 HEPATITIS B VACCINES Completed 07/06/1996, 02/27/1996, 1995 HPV VACCINES Aged Out No longer eligi ble based on patient's age to complete this topic Procedures Procedure Name Priority Date/Time Associated Diagnosis Comments US OB FOLLOW UP + TV Routine 11/08/2024 9:17 AM CDT In vitro fertilization Low-lying placenta Encounter for ultrasound to assess growth ECHO 2D + COLOR FLOW VELOCITY Routine 10/11/2024 9:04 AM CDT screening for malformation using ultrasonics In vitro fertilization US OB FOLLOW UP PER FETUS Routine 10/11/2024 9:04 AM CDT screening for malformation using ultrasonics In vitro fertilization US OB 14+ WKS SINGLE GEST Routine 09/13/2024 8:32 AM EDGE BLACKER screening for malformation using ultrasonics from Last 3 Months Results * US OB FOLLOW UP + TV (11/08/2024 9:17 AM CDT) Anatomical Region Laterality Modality Pelvis Ultrasound 11/08/2024 8:42 AM CDT Narrative 11/08/2024 12:59 PM CDT STL FOLLOW UP ----- Pat. Name: KAITLIN RAMON Study Date: 11/08/2024 8:42am Pat. NO: [id number] Referring MD: SURJIT FREED MD Site: [employer] Maker: Maria Luisa Reid RDMS : 1995 Age: 28 ----- INDICATION ----- IVF Resulting from Assistive Reproductive Technique Low Lying Placenta NOS or without Hemorrhage CODING ----- Diagnoses Z3A.28: Weeks of gestation O09.813: Supervision of resulting from assisted reproductive technology Z3A.28: Weeks of gestation O09.813: Supervision of resulting from assisted reproductive technology O44.43: Low lying placenta NOS or without hemorrhage Procedures 07956: Ultrasound, uterus, real time with image documentation 02750: Ultrasound, uterus, real time with image documentation, follow up, transabdominal approach per fetus HISTORY ----- OB History 2. Para 0 A1 MATERNAL ASSESSMENT ----- Physical Exam Weight 100 kg. BMI 29.03 kg/m METHOD ----- Transabdominal and transvaginal ultrasound examination ----- Ernst . Number of fetuses: 1 DATING ----- GA by prior assessment 28 w + 4 d KRISH by prior assessment: 01/27/2025 Ultrasound examination on: 11/08/2024 GA by U/S based upon: AC, BPD, EFW, Femur, HC GA by /S 28 w + 5 d KRISH by U/S: 01/26/2025 Method of dating: Restore dating from previous exam Assigned: based on stated KRISH, selected on 09/13/2024 Assigned GA 28 w + 4 d Assigned KRISH: 01/27/2025 BIOMETRY ----- BPD 72.4 mm 29w 0d 54% Hadlock OFD 93.7 mm 30w 2d 88% Dalton HC 265.4 mm 28w 6d 27% Hadlock AC 245.7 mm 28w 6d 51% Hadlock Femur 53.8 mm 28w 4d 33% Hadlock HC / AC 1.08 41% Nicolaides Weight Calculation: EFW 1,275 g 28w 3d 43% Hadlock EFW (lb,oz) 2 lb 13 oz EFW by Hadlock ([id number]) Extremities / Bony Struc Biometry: FL / BPD 0.74 FL / HC 0.20 FL / AC 0.22 GENERAL EVALUATION ----- Cardiac activity present. FHR 134 bpm. movements: present. Presentation: cephalic Placenta: Placental site: posterior, right Umbilical cord: Cord vessels: 3 vessel cord Amniotic fluid: Amount of AF: normal amount. MVP 3.4 cm. RODRICK 11.4 cm. Q1 3.4 cm, Q2 1.5 cm, Q3 3.3 cm, Q4 3.3 cm MATERNAL STRUCTURES ----- Cervix Normal Approach - Transvaginal ANATOMY ----- The following structures appear normal: Head / Neck Cranium. Lateral ventricles. Choroid plexus. Midline falx. Cavum septi pellucidi. Cerebellum. Cisterna magna. Heart / Thorax 4-chamber view. RVOT view. LVOT view. Diaphragm. Abdomen Stomach. Kidneys. Bladder. sex: female. GROWTH OVERVIEW ----- Exam date GA BPD (mm) HC (mm) AC (mm) FL (mm) HL (mm) EFW (g) 09/13/2024 20w 4d 48.4 52% 180.9 38% 151.3 36% 38.5 92% 31.8 51% 404 76% 10/11/2024 24w 4d 61.6 59% 227.1 36% 188.4 15% 45.2 49% 680 28% 11/08/2024 28w 4d 72.4 54% 265.4 27% 245.7 51% 53.8 33% 1,275 43% COMMENT ----- Patient's name and date of were verified by the board certified arts therapist prior to the exam. Chyna Baeza was present for the transvaginal ultrasound and served as a president [place]. IMPRESSION ----- Impression: - Ernst viable intrauterine at 28w 4d in cephalic presentation. - Estimated weight is 1275 g (43%ile) with abdominal circumference at the 51%ile - Amniotic fluid volume is normal (Amniotic fluid index = 11.4 cm, maximum vertical pocket = 3.4 cm) - No major malformations identified within the limitations of ultrasound - Low-lying placenta RESOLVED. Recommendations: - Follow up as clinically indicated. - Consider follow up US for growth and anatomy at 32-36 weeks. Thank you for inviting us to participate in your patient's care. Procedure Note Kiarra Martinez MD - 11/08/2024 STL FOLLOW UP ----- Pat. Name:Kilo RAMON Date:11/08/2024 8:42am Pat. NO: [id number] MD:SURJIT FREED MD [facility] Luisa Reid RDMS :1995Age:28 ----- INDICATION ----- IVF Resulting from Assistive Reproductive Technique Low Lying Placenta NOS or without Hemorrhage CODING ----- Diagnoses Z3A.28: Weeks of gestation O09.813: Supervision of resulting fromassisted reproductive technology Z3A.28: Weeks of gestation O09.813: Supervision of resulting fromassisted reproductive technology O44.43: Low lying placenta NOS or withouthemorrhage Procedures 13407: Ultrasound, uterus, real time withimage documentation 37365: Ultrasound, uterus, real time withimage documentation, follow up, transabdominal approach per fetus HISTORY ----- OB History 2. Para 0 A1 MATERNAL ASSESSMENT ----- Physical Exam Weight 100 kg. BMI 29.03 kg/m METHOD ----- Transabdominal and transvaginal ultrasound examination ----- Ernst . Number of fetuses: 1 DATING ----- GA by prior [id number] w + 4 d KRISH by prior assessment:01/27/2025 Ultrasound examination on:11/08/2024 GA by U/S based upon:AC, BPD, EFW, Femur, HC GA by U/S28 w + 5 d KRISH by U/S:01/26/2025 Method of dating:Restore dating from previous exam Assigned:based on stated KRISH, selected on 09/13/2024 Assigned GA28 w + 4 d Assigned KRISH:01/27/2025 BIOMETRY ----- BPD 72.4 mm 29w 0d 54%Hadlock OFD 93.7 mm 30w 2d 88%Dalton HC 265.4 mm 28w 6d 27%Hadlock AC 245.7 mm 28w 6d 51%Hadlock Femur 53.8 mm 28w 4d 33%Hadlock HC / AC 1.08 41%Nicolaides Weight Calculation: EFW 1,275 g 28w 3d43% Hadlock EFW (lb,oz) 2 lb 13 oz EFW by Hadlock ([id number]-FL) Extremities / Bony Struc Biometry: FL / BPD 0.74 FL / HC 0.20 FL / AC 0.22 GENERAL EVALUATION ----- Cardiac activity present. FHR 134 bpm. movements: present.Presentation: cephalic Placenta: Placental site: posterior, right Umbilical cord: Cord vessels: 3 vessel cord Amniotic fluid: Amount of AF: normal amount. MVP 3.4 cm. RODRICK 11.4 cm. Q13.4 cm, Q2 1.5 cm, Q3 3.3 cm, Q4 3.3 cm MATERNAL STRUCTURES ----- Cervix Normal Approach - Transvaginal ANATOMY ----- The following structures appear normal: Head / Neck Cranium. Lateral ventricles. Choroid plexus.Midline falx. Cavum septi pellucidi. Cerebellum. Cisterna magna. Heart / Thorax 4-chamber view. RVOT view. LVOT view. Diaphragm. Abdomen Stomach. Kidneys. Bladder. sex: female. GROWTH OVERVIEW ----- Exam date GA BPD (mm) HC (mm) AC (mm) FL(mm) HL (mm) EFW (g) 09/13/2024 20w 4d 48.4 52% 180.9 38% 151.3 36%38.5 92% 31.8 51% 404 76% 10/11/2024 24w 4d 61.6 59% 227.1 36% 188.4 15%45.2 49% 680 28% 11/08/2024 28w 4d 72.4 54% 265.4 27% 245.7 51%53.8 33% 1,275 43% COMMENT ----- Patient's name and date of were verified by the board certified arts therapist prior tothe exam. Chyna Baeza was present for the transvaginal ultrasound and served as achaperone. IMPRESSION ----- Impression: - Ernst viable intrauterine at 28w 4d in cephalicpresentation. - Estimated weight is 1275 g (43%ile) with abdominal circumferenceat the 51%ile - Amniotic fluid volume is normal (Amniotic fluid index = 11.4 cm, maximumvertical pocket = 3.4 cm) - No major malformations identified within the limitations of ultrasound - Low-lying placenta RESOLVED. Recommendations: - Follow up as clinically indicated. - Consider follow up US for growth and anatomy at 32-36 weeks. Thank you for inviting us to participate in your patient's care. us Surjit Freed MD US ORDERABLES Edited Result - Final * ECHO 2D + COLOR FLOW VELOCITY (10/11/2024 9:04 AM CDT) Narrative 10/11/2024 9:04 AM CDT Order information only. Exam was auto-finalized. us Catrachita Morris MD US ORDERABLES Final Result * US OB FOLLOW UP PER FETUS (10/11/2024 9:04 AM CDT) Anatomical Region Laterality Modality Pelvis Ultrasound 10/11/2024 7:18 AM CDT Narrative 10/11/2024 9:10 AM CDT STL FOLLOW UP ----- Pat. Name: KAITLIN RAMON Study Date: 10/11/2024 7:18am Pat. NO: [id number] Referring MD: SURJIT FREED MD Site: [employer] Maker: Mary Wagoner RDMS : 1995 Age: 28 ----- INDICATION ----- IVF Resulting from Assistive Reproductive Technique CODING ----- Diagnoses Z3A.24: Weeks of gestation O09.812: Supervision of resulting from assisted reproductive technology Procedures 31051: Ultrasound, uterus, real time with image documentation, follow up, transabdominal approach per fetus 31800: Echocardiography, , cardiovascular system, real time with image documentation (2D), with or without M-mode recording 42250: Doppler echocardiography color flow velocity mapping 25613: Doppler echocardiography, , cardiovascular system, pulsed wave [...] 1 lb 8 oz EFW by Hadlock (OIB-NY-TE-FL) Head / Face / Neck Biometry: Die Filer 4.4 mm Thorax / Lungs Biometry: Thoracic [...] normal RVOT view normal 3-vessel view normal 0-jddygi-ckiqzwn view normal High short axis view normal [...] view. RVOT view. LVOT view. 3-vessel view. 3-ioepsj-dvvfeoo view. Diaphragm. Abdomen Stomach. Kidneys. Bladder. sex: [...] and date of were verified by the board certified arts therapist prior to the exam IMPRESSION ----- 1. [...] Pat. Name:Kilo RAMON Date:10/11/2024 7:18am Pat. NO: [id number] MD:SURJIT FREED MD [facility]Mary Wagoner RDMS :1995Age:28 ----- INDICATION ----- IVF Resulting from Assistive Reproductive Technique CODING ----- Diagnoses Z3A.24: Weeks of gestation O09.812: Supervision of resulting fromassisted reproductive technology Procedures 49113: Ultrasound, uterus, real time withimage documentation, follow up, transabdominal approach per fetus 15446: Echocardiography, , cardiovascularsystem, real time with image documentation (2D), with or without M-mode recording 03235: Doppler echocardiography color flowvelocity mapping 84392: Doppler echocardiography, ,cardiovascular system, pulsed wave and/or continuous wave with spectral display; complete METHOD ----- Transabdominal ultrasound examination ----- Ernst . Number of fetuses: 1 DATING ----- GA by prior [id number] w + 4 d KRISH by prior [...] 1 lb 8 oz EFW by Hadlock ([id number]) Head / Face / Neck Biometry: Die Filer 4.4mm Thorax / Lungs Biometry: Thoracic circ [...] normal RVOT view normal 3-vessel view normal 0-phyfiv-jrzizts view normal High short axis view normal [...] syst PA main 5.0 mm -0.30 0.010.12 Chan Ductus art. 2.1 mm -2.30 -1.78-1.90 Giles Rt PA branch 2.0 mm -1.67 -1.38-1.33 Giles Lt PA branch 2.3 mm -0.39 -0.09-0.11 Giles Ao asc 3.7 mm -1.68 -1.33-1.09 Chan Ao isthmus 2.8 mm -0.25 -0.43-0.34 0.24 [...] 4-chamber view. RVOT view. LVOT view. 3-vesselview. 3-ldiecj-zduyswm view. Diaphragm. Abdomen Stomach. Kidneys. Bladder. sex: female. GROWTH OVERVIEW ----- Exam date GA BPD (mm) HC (mm) AC (mm) FL(mm) HL (mm) EFW (g) 09/13/2024 20w 4d 48.4 52% 180.9 38% 151.3 36%38.5 92% 31.8 51% 404 76% 10/11/2024 24w 4d 61.6 59% 227.1 36% 188.4 15%45.2 49% 680 28% COMMENT ----- Patient's name and date of were verified by the board certified arts therapist prior tothe exam IMPRESSION ----- 1. Single [...] 14+ WKS SINGLE GEST (09/13/2024 8:32 AM EDGE BLACKER) Anatomical Region Laterality Modality Pelvis Ultrasound 09/13/2024 7:17 AM EDGE BLACKER Narrative 09/13/2024 8:37 AM EDGE BLACKER STL COMP ----- Pat. Name: KAITLIN RAMON Study Date: 09/13/2024 7:17am Pat. NO: [id number] Referring MD: SURJIT FREED MD Site: [employer] Maker: Mary Wagoner RDMS : 1995 Age: 28 ----- INDICATION ----- Anatomy Survey IVF Resulting from Assistive PGA wnl. Declined NIPT. Reproductive Technique CODING ----- Diagnoses Z3A.20: Weeks of gestation O09.812: Supervision of resulting from assisted reproductive technology Z36.3: Encounter for screening for malformations Procedures 17915: Ultrasound, uterus, real time with image documentation, [...] 0 lb 14 oz EFW by Hadlock ([id number]-TE-[id number]-FL) Head / Face / Neck Biometry: Die Filer 5.2 mm CM 5.6 mm 65% Nicolaides [...] view. RVOT view. LVOT view. 3-vessel view. 2-wyzkou-jupundc view. Situs. Aortic arch view. Ductal arch [...] and date of were verified by the board certified arts therapist before the exam IMPRESSION ----- IUP at [...] MD - 09/13/2024 STL COMP ----- Pat. Name:Katja RAMONudlanette Date:09/13/2024 7:17am Pat. NO: [id number] MD:SURJIT FREED MD Site:[facility]:Mary Wagoner RDMS :1995Age:28 ----- INDICATION ----- Anatomy Survey IVF Resulting from Assistive PGA wnl. YesicaT. Reproductive Technique CODING ----- Diagnoses Z3A.20: Weeks of gestation O09.812: Supervision of resulting fromassisted reproductive technology Z36.3: Encounter for screening formalformations Procedures 44729: Ultrasound, uterus, real time withimage documentation, and maternal evaluation plus detailed anatomic examination,transabdominal approach METHOD ----- Transabdominal ultrasound examination ----- Ernst . Number of fetuses: 1 DATING ----- Method of dating:based on stated KRISH GA by prior [id number] w + 4 d KRISH by prior [...] 0 lb 14 oz EFW by Hadlock ([id number]-FL) Head / Face / Neck Biometry: Die Filer 5.2 mm CM 5.6 mm 65%Nicolaides Inner [...] 4-chamber view. RVOT view. LVOT view. 3-vesselview. 1-kulzpj-rsdfhhw view. Situs. Aortic arch view. Ductal arch [...] and date of were verified by the board certified arts therapist beforethe exam IMPRESSION ----- IUP at 20w [...] Final Result from Last 3 Months [facility]
--- OUTSIDE RECORDS SUMMARY | 2024-11-29 15:39 | XMS_ITS | Encounter Summary ---
Author Organization [facility] Address [address] [place] [address] Care Team Providers Care Youth Nutritional Monitor Name Role Phone Unavailable Primary Care Provider Unavailabl e Encounter Details Date Type Department Care Team (Latest Contact Info) Description 02/16/2024 Lab Requisition [facility] [address] [place] [address] Carla Chavez MD [address] [facility] [address] [place] [address] Hyperstimulation of ovaries Social History Tobacco Use Types Packs/Day Years Used Date Smoking Tobacco: Never Assessed Comments Unknown Sex and Gender Information Value Date Recorded Sex Assigned at Not on file Legal Sex Female 12:13 PM CDT Gender Identity Not on file Sexual Orientation Not on file documented as of this encounter Plan of Treatment Upcoming Encounters Date Type Department Care Team (Late st Contact Info) Description 12/04/2024 8:15 AM CDT Hospital Encounter [facility] [address] [place] [phone] documented as of this encounter Procedures Procedure Name Priority Date/Time Associated Diagnosis Comments CBC W AUTO DIFFERENTIAL STAT 02/16/2024 12:15 PM CDT Hyperstimulation of ovaries COMPREHENSIVE METABOLIC PANEL STAT 02/16/2024 12:15 PM CDT Hyperstimulation of ovaries documented in this encounter Results * (ABNORMAL) COMPREHENSIVE METABOLIC PANEL (02/16/2024 12:15 PM CDT) Glucose 114(H) 70 - 105 mg/dL 02/16/2024 12:[address] [facility] Sodium 141 136 - 145 mmol/L 02/16/2024 12:56 PM T [facility] Potassium 4.7 3.5 - 5.1 mmol/L 02/16/2024 12:[address] [facility] Chloride 106 98 - 107 mmol/L 02/16/2024 12:[address] [facility] CO2 26 22 - 29 mmol/L 02/16/2024 12:[address] [facility] Calcium 9.6 8.4 - 10.4 mg/dL 02/16/2024 12:[address] [facility] Anion Gap 9 6 - 16 mmol/L 02/16/2024 12:56 PM T [facility] BUN 10 5.3 - 18.7 mg/dL 02/16/2024 12:[address] [facility] Creatinine 0.79 0.57 - 1.11 mg/dL 02/16/2024 12:[address] [facility] Alkaline Phosphatase 56 40 - 150 U/L 02/16/2024 12:[address] [facility] ALT 18 0 - 55 U/L 02/16/2024 12:[address] [facility] AST 13 5 - 34 U/L 02/16/2024 12:[address] [facility] Protein Total 6.6 6.4 - 8.3 gm/dL 02/16/2024 12:[address] [facility] Albumin 3.6 3.4 - 5.0 gm/dL 02/16/2024 12:[address] [facility] Bilirubin Total 0.6 0.2 - 1.2 mg/dL 02/16/2024 12:[address] [facility] eGFR by CKD-EPI >90 >=90 mL/min/1.7 3 m2 02/16/2024 12:[address] [facility] Blood BLOOD SPECIMEN / Unknown Venipuncture / Unknown 02/16/2024 12:15 PM CDT 02/16/2024 12:15 PM CDT us Carla Chavez MD LAB - CHEMISTRY ORDERA BLES Final Result [facility] [address] [place] [address] * (ABNORMAL) CBC WITH DIFFERENTIAL (02/16/2024 12:15 PM CDT) [facility] WBC 7.4 4.0 - 10.7 x10E9/L 02/16/2024 12:32 PM CDT [facility] RBC Count 3.96 3.90 - 5.20 x10E12/L 02/16/2024 12:32 PM CDT [facility] Hemoglobin 11.4(L) 11.9 - 15.8 g/dL 02/16/2024 12:32 PM CDT [facility] Hematocrit 35.5 34.8 - 46.1 % 02/16/2024 12:32 PM CDT [facility] MCV 89.6 80.0 - 98.0 fL 02/16/2024 12:32 PM CDT [facility] MCH 28.8 26.7 - 33.6 pg 02/16/2024 12:32 PM CDT [facility] MCHC 32.1 31.7 - 36.3 g/dL 02/16/2024 12:32 PM CDT [facility] RDW-CV 11.9 11.3 - 14.8 % 02/16/2024 12:32 PM CDT [facility] Platelet Count 172 150 - 420 x10E9/L 02/16/2024 12:32 PM CDT [facility] MPV 10.6 7.8 - 11.4 fL 02/16/2024 12:32 PM CDT [facility] Neutrophil % 74.5(H) 41.0 - 74.0 % 02/16/2024 12:32 PM CDT [facility] Lymphocyte % 13.4(L) 17.0 - 47.0 % 02/16/2024 12:32 PM CDT [facility] Monocyte % 10.0 3.0 - 11.0 % 02/16/2024 12:32 PM CDT [facility] Eosinophil % 1.4 0.0 - 7.0 % 02/16/2024 12:32 PM CDT [facility] Basophil % 0.3 0.0 - 1.6 % 02/16/2024 12:32 PM CDT [facility] Immature Granulocytes % 0.4 0.0 - 1.0 % 02/16/2024 12:32 PM CDT [facility] Neutrophil Absolute 5.52 1.60 - 7.50 x10E9/L 02/16/2024 12:32 PM CDT [facility] Lymphocyte Absolute 0.99(L) 1.00 - 4.40 x10E9/L 02/16/2024 12:32 PM CDT [facility] Monocyte Absolute 0.74 0.15 - 1.00 x10E9/L 02/16/2024 12:32 PM CDT [facility] Eosinophil Absolute 0.10 0.00 - 0.60 x10E9/L 02/16/2024 12:32 PM CDT [facility] Basophil Absolute 0.02 0.00 - 0.13 x10E9/L 02/16/2024 12:32 PM CDT [facility] Blood BLOOD SPECIMEN / Unknown 02/16/2024 12:15 PM CDT 02/16/2024 12:15 PM CDT us Carla Chavez MD LAB - HEMATOLOGY ORDER EDITA Final Result Performing Organization Address City/State/[facility] Co de Phone Number [facility] [address] [place] [address] documented in this encounter Visit Diagnoses Diagnosis Hyperstimulation of ovaries Other ovarian hyperfunction Encounter for ultrasound to assess growth (HCC)- Primary Subclinical hypothyroidism Other specified acquired hypothyroidism In vitro fertilization Encounter for assisted reproductive fertility procedure cycle documented in this encounter
--- OUTSIDE RECORDS SUMMARY | 2024-11-29 15:40 | XMS_ITS | Clinical Summary ---
Author Organization [facility] Address [facility] [place] [address] Care Team Providers Care Help Desk Technician Name Role Phone Davis Villeda MD Primary Care Provider [phone] Allergies Active Allergy Reactions Criticality Noted Date [...] of Delivery Comme nts Yes 01/27/2025 Immunizations Immunization Administration Dates Next Due Dtap 04/28/2000,04/02/1997 Dtap [...] Comments Blood Pressure 122/73 07/15/2024 1:15 AM COVERED BUCKLE ASSEMBLER Pulse 107 07/15/2024 12:41 AM COVERED BUCKLE ASSEMBLER Temperature 36.6 C (97.8 F) 07/15/2024 12:41 AM COVERED BUCKLE ASSEMBLER Respiratory Rate 16 07/15/2024 12:41 AM COVERED BUCKLE ASSEMBLER Oxygen Saturation 96% 07/15/2024 1:15 AM COVERED BUCKLE ASSEMBLER Inhaled Oxygen Concentration - - Weight 97.5 kg (215 lb) 07/15/2024 12:41 AM COVERED BUCKLE ASSEMBLER Height 185.4 cm (6' 1 ) 07/15/2024 12:41 AM COVERED BUCKLE ASSEMBLER Body Mass Index 28.37 07/15/2024 12:41 AM COVERED BUCKLE ASSEMBLER Plan of Treatment Health Maintenance Due Date [...] 5 Years) and At-Risk Patients (6 to 49 Years) Aged Out No longer eligible based [...] (05/10/2022 10:14 AM CDT) THIN PREP PAP [address] [address] Department of Pathology Pathology Report CERVICAL/VAGINAL PAP SMEAR REPORT Name: FATMATA RAMON Age: 6 1995 (Age: 26) Location: [facility] Sex: F Collected Date: 05/10/2022 Hospital #: [id number] Date Received: 05/12/2022 Date Reported: 05/13/2022 Provider: [...] is not effective in detecting cervical adenocarcinoma. [facility] 05/10/2022 10:1 4 AM CDT 05/12/2022 10:14 AM CDT Comment:CERVICAL/ENDOCERVICA L us Lukasz REGALADO PATHOLOGY/CYTOLOGY ORDERABLE S Final Result [facility] [address] [id number], from Last 3 Months or Most Recently Relevant to Health Maintenance Insurance Care Teams Help Desk Technician Relationship Specialty Start Date End Date Davis Villeda MD [address] [place] [address] PCP - General PEDIATRICS 07/06/23
[2024-11-29 16:35] LABS: Hematocrit 36.9 % (37.0-47.0); Mean Corpuscular HGB Conc 32.5 g/dl (32-36); Mean Corpuscular Hemoglobin 28.6 pg (26-34); Mean Corpuscular Volume 88.1 fl (80-100); Mean Platelet Volume 10.6 fl (7.4-10.4); Platelet Count Result 188 k/mm3 (150-375); Red Blood Count 4.19 M/mm3 (4.2-5.4); Red Cell Distribution Width 13.6 % (11.5-14.5); White Blood Count 8.2 K/mm3 (4.5-10.0)
[2024-11-29 16:52] LABS: Syphilis IgG/IgM Antibody Negative (Negative)
[2024-11-29 17:04] LABS: HIV 1/2 Ab P24 Ag Result Negative (Negative)
== END 2024-11-29 15:37 | disposition home or self-care (01) ==
LOC: ANHLAB 15:38
PROVIDERS: PCP Pediatrics; Visit Provider Obstetrics & Gynecology
DX: Z34.90 Encounter for supervision of normal pregnancy, unspecified, unspecified trimester (principal); Z3A.00 Weeks of gestation of pregnancy not specified
CPT/HCPCS: 36415; 85027; 86593; 86703; G0432

== ENCOUNTER 2025-01-07 22:29 | Outpatient (CLI) | payer BC, SELFPAY ==
[2025-01-07] VITALS (14 sets, daily range): BP systolic 113–116; BP diastolic 65–69; PULSE 84–94; O2SAT 96–99; BMI 30.7
--- OUTSIDE RECORDS SUMMARY | 2025-01-07 22:34 | XMS_ITS ---
Author Organization [facility] Address [address] [place] [address] Care Team Providers Care Thermostatic Controls Supervisor Name Role Phone Dr. Davis Villeda Primary Care Provider [phone] Migration, Provider Unavailable Unavailable Allergies Allergen (clinical drug ingredient) Drug/Non Drug Allergy documented on EMR Reaction Allergy Type Onset Date Status amoxicillin Amoxicillin rash as an infant Drug Allergy 01/27/2022 Active Keflex nausea and abdominal cramping Drug Allergy 01/27/2022 Active REASON FOR VISIT EMR-Armando Medications Medication SIG (Take, Route, Frequency, Duration) Notes Start Date End Date Status Synthroid 75 MCG Tablet 1 Oral every papi annie; Duration: 90 06/11/2024 03/07/2025 Active Levothyroxine Sodium 50 MCG Tablet 1 Oral every other day; Duration: 90 06/11/2024 03/07/2025 Active Encounters Encounter Location Date Provider Diagnosis [address] [address] 06/24/2024 Provider Migration Plan Of Treatment Next Appt Details Provider Name:Dr. Davis li, 03/18/2025 10:30:00 AM, [address] [place] [address], [address], [phone] Progress Notes * Sarahi RAMONOB:[birth year] (29 yo F)Acc No.[id number]:06/24/2024 Patient: Michael JOSUESHEREEYuval CRUZn :1995 A ge:28 Y S ex:Female Address:[address] [place], [place] [address]ann[address] [facility] , [place], [address] Subjective: * Chief Complaints: * E MR-Armando * Surgical History: Appendectomy 09/06/2016 * Medications: T akingSynthroid 75 MCG Tablet [...] cramping - Allergy - Onset Date 01/27/2022 * * Date:
--- OUTSIDE RECORDS SUMMARY | 2025-01-07 22:34 | XMS_ITS | Clinical Summary ---
Author Organization [facility] Address [address] [place] [address] Phone Care Team Providers Care Senior Category Manager Name Role Phone Unavailable Primary Care Provider Unavailabl e Encounters Date Type Department Care Team Description 11/08/2024 8:41 AM CDT - 11/08/2024 11:59 PM CDT Hospital Encounter [facility] Isaias Cotton [address] [place] [phone] Surjit Freed MD Discharge Disposition: Home or Self Care 10/23/2024 External Device Data STL ABSTRACTION Provider, Abstract 10/11/2024 7:13 AM CDT - 10/11/2024 11:59 PM CDT Hospital Encounter [facility] Isaias Cotton [address] [place] [phone] Catrachita Morris MD Discharge Disposition: Home or Self Care 10/11/2024 7:13 AM CDT - 10/11/2024 11:59 PM CDT Hospital Encounter [facility] Isaias Cotton [address] [place] [phone] Catrachita Morris MD Discharge Disposition: Home or Self Care from Last 3 Months Social History Tobacco Use Types Packs/Day Years Used Date Smoking Tobacco: Never Assessed Comments Unknown Sex and Gender Information Value Date Recorded Sex Assigned at Not on file 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 Name: KAITLIN RAMON Study Date: 11/08/2024 8:42am Pat. NO: [id number] Referring MD: SURJIT FREED MD Site: [facility] Agency Service Representative: Maria Luisa Reid RDMS : 1995 Age: 28 ----- INDICATION ----- IVF Resulting from Assistive Reproductive Technique Low Lying Placenta NOS or without Hemorrhage CODING ----- Diagnoses Z3A.28: Weeks of gestation O09.813: Supervision of resulting from assisted reproductive technology Z3A.28: Weeks of gestation O09.813: Supervision of resulting from assisted reproductive technology O44.43: Low lying placenta NOS or without hemorrhage Procedures 86086: Ultrasound, uterus, real time with image documentation 79961: Ultrasound, uterus, real time with image documentation, [...] BPD, EFW, Femur, HC GA by U/S 28 w + 5 d KRISH by [...] 2 lb 13 oz EFW by Hadlock ([id number]) Extremities / Bony Struc Biometry: FL / [...] and date of were verified by the technology education instructor prior to the exam. Chyna Baeza was present for the transvaginal ultrasound and served as a smutter. IMPRESSION ----- Impression: - Ernst viable intrauterine [...] Pat. Name:Kilo RAMON Date:11/08/2024 8:42am Pat. NO: [id number] :SURJIT FREED MD [facility]Maria Luisa Reid RDMS :1995Age:28 ----- INDICATION ----- IVF Resulting from Assistive Reproductive Technique Low Lying Placenta NOS or without Hemorrhage CODING ----- Diagnoses Z3A.28: Weeks of gestation O09.813: Supervision of resulting fromassisted reproductive technology Z3A.28: Weeks of gestation O09.813: Supervision of resulting fromassOwl biomedical reproductive technology O44.43: Low lying placenta NOS or withouthemorrhage Procedures 99437: Ultrasound, uterus, real time withimage documentation 22842: Ultrasound, uterus, real time withimage documentation, follow up, transabdominal approach per fetus HISTORY ----- OB History 2. Para 0 A1 MATERNAL ASSESSMENT ----- Physical Exam Weight 100 kg. BMI 29.03 kg/m METHOD ----- Transabdominal and transvaginal ultrasound examination ----- Ernst . Number of fetuses: 1 DATING ----- GA by prior [id number] w + 4 d KRISH by prior [...] 2 lb 13 oz EFW by Hadlock ([id number]) Extremities / Bony Struc Biometry: FL / [...] and date of were verified by the technology education instructor prior tothe exam. Chyna Baeza was present [...] RAMON Study Date: 10/11/2024 7:18am Pat. NO: [id number] Referring MD: SURJIT FREED MD Site: [facility] Agency Service Representative: Mary Wagoner RDMS : 1995 Age: 28 ----- INDICATION ----- IVF Resulting from Assistive Reproductive Technique CODING ----- Diagnoses Z3A.24: Weeks of gestation O09.812: Supervision of resulting from assisted reproductive technology Procedures 52329: Ultrasound, uterus, real time with image documentation, follow up, transabdominal approach per fetus 91088: Echocardiography, , cardiovascular system, real time with image documentation (2D), with or without M-mode recording 41259: Doppler echocardiography color flow velocity mapping 09410: Doppler echocardiography, , cardiovascular system, pulsed wave [...] 1 lb 8 oz EFW by Hadlock ([id number]-FL) Head / Face / Neck Biometry: Quality Control Supervisor 4.4 mm Thorax / Lungs Biometry: Thoracic [...] normal RVOT view normal 3-vessel view normal 5-clnqyh-jydegdr view normal High short axis view normal [...] PA main 5.0 mm -0.30 0.01 0.12 Chan Ductus art. 2.1 mm -2.30 -1.78 -1.90 Giles Rt PA branch 2.0 mm -1.67 -1.38 -1.33 Giles Lt PA branch 2.3 mm -0.39 -0.09 -0.11 Giles Ao asc 3.7 mm -1.68 -1.33 -1.09 Chan Ao isthmus 2.8 mm -0.25 -0.43 -0.34 0.24 Mu Ao desc 3.3 mm -1.31 -0.84 -0.80 Chan IVC 3.1 mm 0.37 0.60 0.65 Giles Cardiac Doppler: Tricuspid Valve: E-wave 26.51 cm/s [...] view. RVOT view. LVOT view. 3-vessel view. 0-cehakv-hkmcmxz view. Diaphragm. Abdomen Stomach. Kidneys. Bladder. sex: [...] and date of were verified by the technology education instructor prior to the exam IMPRESSION ----- 1. [...] MD - 10/11/2024 STL FOLLOW UP ----- Laura. Name:Kilo RAMON Date:10/11/2024 7:18am Pat. NO: [id number] MD:SURJIT FREED MD [facility]:Mary Wagoner RDMS :1995Age:28 ----- INDICATION ----- IVF Resulting from Assistive Reproductive Technique CODING ----- Diagnoses Z3A.24: Weeks of gestation O09.812: Supervision of resulting fromassOwl biomedical reproductive technology Procedures 79487: Ultrasound, uterus, real time withimage documentation, follow up, transabdominal approach per fetus 62281: Echocardiography, , cardiovascularsystem, real time with image documentation (2D), with or without M-mode recording 78900: Doppler echocardiography color flowvelocity mapping 46628: Doppler echocardiography, ,cardiovascular system, pulsed wave and/or continuous wave with spectral display; complete METHOD ----- Transabdominal ultrasound examination ----- Ernst . Number of fetuses: 1 DATING ----- GA by prior [id number] w + 4 d KRISH by prior [...] 1 lb 8 oz EFW by Hadlock ([id number]-FL) Head / Face / Neck Biometry: Quality Control Supervisor 4.4mm Thorax / Lungs Biometry: Thoracic circ [...] normal RVOT view normal 3-vessel view normal 8-zwoiku-iswxvgh view normal High short axis view normal [...] Lt PA branch 2.3 mm -0.39 -0.09-0.11 Chan Ao asc 3.7 mm -1.68 -1.33-1.09 Chan [...] 4-chamber view. RVOT view. LVOT view. 3-vesselview. 2-nsoqty-jzoanqe view. Diaphragm. Abdomen Stomach. Kidneys. Bladder. sex: female. GROWTH OVERVIEW ----- Exam date GA BPD (mm) HC (mm) AC (mm) FL(mm) HL (mm) EFW (g) 09/13/2024 20w 4d 48.4 52% 180.9 38% 151.3 36%38.5 92% 31.8 51% 404 76% 10/11/2024 24w 4d 61.6 59% 227.1 36% 188.4 15%45.2 49% 680 28% COMMENT ----- Patient's name and date of were verified by the technology education instructor prior tothe exam IMPRESSION ----- 1. Single [...] of this patient. us Catrachita Morris MD ORDERABLES Final Result from Last 3 Months Insurance [facility] BLUE ACCESS CHOICE
--- OUTSIDE RECORDS SUMMARY | 2025-01-07 22:34 | XMS_ITS | Patient Health Record ---
Author Organization [facility] Address [address] [place] [address] Care Team Providers Care Maintenance Shop Laborer Name Role Phone Dr. Davis Villeda Primary Care Provider [phone] Migration, Provider Unavailable Unavailable Allergies Allergen (clinical drug ingredient) Drug/Non Drug Allergy documented on EMR Reaction Allergy Type Onset Date Status amoxicillin Amoxicillin rash as an infant Drug Allergy 01/27/2022 Active Keflex nausea and abdominal cramping Drug Allergy 01/27/2022 Active Reason For Referral No Information Medications Medication SIG (Take, Route, Frequency, Duration) Notes Start Date End Date Status Levothyroxine Sodium 50 MCG Tablet 1 Oral every other day; Duration: 90 06/11/2024 03/07/2025 Active (w/Iron & FA) 27-0.8 MG Tablet 1 tablet Orally Once a day Active Synthroid 75 MCG Tablet 1 Oral every papi annie; Duration: 90 06/11/2024 03/07/2025 Active Social History Tobacco Use: Social History Observation Description Date Details (start date - stop date) Former Smoker NA - NA Social History Tobacco Use: Social Info Question Answer Notes Tobacco Use/Smoking Tobacco use: former smoker Section Notes: Drinking: Quit in October Drug Use: No Work Environment: Living Situation: Smoking: No Exercise: Diet: Healthier choices Problems Problem Type SNOMED Code ICD Code Onset Dates Problem Status W/U Status Risk Notes Problem Fatigue (48142319) Other fatigue (R53.83) 09/06/19 17 Problem resolved confirmed Problem Acute upper respiratory infection (09153967) Acute upper respiratory infections of unspecified site (465.9) 09/14/19 17 Problem resolved confirmed Problem Fatty liver (511097784) Fatty (change of) liver, not elsewhere classified (K76.0) 01/02/20 24 Active confirmed Problem Eruption of skin (205302767) Rash and other nonspecific skin eruption (R21) 09/06/19 17 Problem resolved confirmed Problem Acute upper respiratory infection (00572029) Acute upper respiratory infection, unspecified (J06.9) 05/08/20 18 Problem resolved confirmed Problem General examination of patient (433482522) Routine general medical examination at health care facility (V70.0) 12/08/19 17 Problem resolved confirmed Problem Malaise and fatigue (747839247) Other malaise and fatigue (780.79) 09/06/19 17 Problem resolved confirmed Problem Hypothyroidism (04639950) Hypothyroidism, unspecified (E03.9) 05/27/20 23 Active confirmed Vital Signs Heart Rate 80 /min 07/20/2024 Temperature 98.5 degrees Fahrenheit 07/20/2024 Height-cm 182.88 cm 07/20/2024 Oximetry 98 % 07/20/2024 Blood pressure diastolic 70 mm Hg 07/20/2024 Weight-kg 98.25 kg 07/20/2024 Height 72.00 in 07/20/2024 Blood pressure systolic 110 mm Hg 07/20/2024 Weight 216.6 lbs 07/20/2024 BMI 29.37 kg/m2 07/20/2024 Encounters Encounter Location Date Provider Diagnosis [address] [address] 07/20/2024 Dr. Davis Villeda Hypothyroidism, unspecified E03.9 ; Fatty (change of) liver, not elsewhere classified K76.0 and Second trimester Z34.[address] [address] 06/23/2024 Provider Migration [address] [address] 06/24/2024 Provider Migration Assessments Encounter Date Diagnosis (ICD Code) Assessment Notes Treatment Notes Treatment Clinical Notes Section Notes 07/20/2024 Hypothyroidism, unspecified (ICD-10 - E03.9) 07/20/2024 Fatty (change of) liver, not elsewhere classified (ICD-10 - K76.0) 07/20/2024 Second trimester (ICD-10 - Z34.92) Plan Of Treatment Next Appt Details Provider Name:Dr. Davis li, 03/18/2025 10:30:00 AM, [address] [facility], [place], [address], [phone] Insurance Providers Payer Name Payer Address Payer Phone Subscriber Number Group Number Insured Name Patient Relationship to Insured Coverage Start Date Coverage End Date [facility] [address] [place] [address] [id number] Fatmata Ulloa Self - patient is the insured 4 Medical (General) History Medical History History ICD Code Thyroid disorder Liver enzyme elevation Slight hearing loss Surgical History Surgery Date(Month/Year) Appendectomy 09/06/2016
--- OUTSIDE RECORDS SUMMARY | 2025-01-07 22:34 | XMS_ITS ---
Author Organization [facility] Address [address] [place] [address] Care Team Providers Care Photographic Machine Operator Name Role Phone Dr. Davis Villeda Primary Care Provider [phone] Migration, Provider Unavailable Unavailable REASON FOR VISIT [facility] Encounters Encounter Location Date Provider Diagnosis [facility] [address] [place] [address] 06/23/2024 Provider Migration Plan Of Treatment Medication Medication Name Sig Start Date Stop Date Notes Synthroid 75 MCG Tablet 1 Oral every evening; Duration: 90 05/27/2023 05/27/2023 Rx Refill Request,discontinu ereason:Refilled Levothyroxine Sodium 50 MCG Tablet 1 Oral every other day; Duration: 90 03/12/2024 03/12/2024 Rx Refill Request,discontinu ereason:Refilled Bactrim DS 800-160 MG Tablet 1 Oral two times a day; Duration: 7 01/27/2022 02/02/2022 Triamcinolone Acetonide 0.1 % Ointment External two times a day; Duration: 0 01/27/2022 01/27/2022 Synthroid 50 MCG Tablet 1 Oral every oth er day; Duration: 90 12/20/2023 12/20/2023 Rx Refill Request,discontinu ereason:Refilled Next Appt Details Provider Name:Dr. Davis li, 03/18/2025 10:30:00 AM, [address] [place] [address], [place], [address], [phone] Progress Notes * Sarahi RAMONOB:[birth year] (29 yo F)Acc No.[id number]:06/23/2024 Patient: Fatmata MCNEIL :1995 A ge:28 Y S ex:Female Address:[address] [place] [address] * Refills Stop Levothyroxine Sodium Tablet, 50 [...] 0 Subjective: * Chief Complaints: * E -Armando * * Date:
--- OUTSIDE RECORDS SUMMARY | 2025-01-07 22:34 | XMS_ITS | Referral Summary ---
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
--- OUTSIDE RECORDS SUMMARY | 2025-01-07 22:35 | XMS_ITS | Clinical Summary ---
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
--- OUTSIDE RECORDS SUMMARY | 2025-01-07 22:35 | XMS_ITS | Clinical Summary ---
Author Organization [facility] Address [facility] [place] [address] Care Team Providers Care Engineering Administrator Name Role Phone Davis Villeda MD Primary Care Provider [phone] Allergies Active Allergy Reactions Criticality Noted Date [...] Comments Blood Pressure 122/73 07/15/2024 1:15 AM PROCUREMENT TECHNICIAN Pulse 107 07/15/2024 12:41 AM PROCUREMENT TECHNICIAN Temperature 36.6 C (97.8 F) 07/15/2024 12:41 AM PROCUREMENT TECHNICIAN Respiratory Rate 16 07/15/2024 12:41 AM PROCUREMENT TECHNICIAN Oxygen Saturation 96% 07/15/2024 1:15 AM PROCUREMENT TECHNICIAN Inhaled Oxygen Concentration - - Weight 97.5 kg (215 lb) 07/15/2024 12:41 AM PROCUREMENT TECHNICIAN Height 185.4 cm (6' 1) 07/15/2024 12:41 AM PROCUREMENT TECHNICIAN Body Mass Index 28.37 07/15/2024 12:41 AM PROCUREMENT TECHNICIAN Plan of Treatment Health Maintenance Due [...] (05/10/2022 10:14 AM CDT) THIN PREP PAP [address] [address] Department of Pathology Pathology Report CERVICAL/VAGINAL PAP SMEAR REPORT Name: FATMATA RAMON Age: 6 1995 (Age: 26) Location: [facility] Sex: F Collected Date: 05/10/2022 Hospital #: [id number] Date Received: 05/12/2022 Date Reported: 05/13/2022 Provider: [...] is not effective in detecting cervical adenocarcinoma. [facility] 05/10/2022 10:1 4 AM CDT 05/12/2022 10:14 AM CDT Comment:CERVICAL/ENDOCERVICA L us Lukasz REGALADO PATHOLOGY/CYTOLOGY ORDERABLE S Final Result [facility] [address] [id number], from Last 3 Months or Most Recently Relevant to Health Maintenance Insurance Care Teams Engineering Administrator Relationship Specialty Start Date End Date Davis Villeda MD [address] [place] [address] PCP - General PEDIATRICS 07/06/23
[2025-01-07 23:13] LABS: Basophils Percent Auto 0.4 % (0.2-1.2); Eosinophils Absolute Auto 0.3 K/mm3 (0-0.3); Eosinophils Percent Auto 3.2 % (0-4.4); Hematocrit 36.7 % (37.0-47.0); Hemoglobin 12.1 g/dL (12.0-15.0); Immature Granulocyte Absolute 0.05 K/mm3 (0.00-0.031); Immature Granulocyte Percent A 0.6 % (0-0.5); Lymphocytes Absolute Auto 1.42 K/mm3 (0.9-3.2); Mean Corpuscular Hemoglobin 28.9 pg (26-34); Mean Corpuscular Volume 87.8 fl (80-100); Mean Platelet Volume 9.8 fl (7.4-10.4); Monocytes Absolute Auto 0.7 K/mm3 (0.1-0.6); Monocytes Percent Auto 8.4 % (2.6-8.5); Neutrophils Absolute Auto 5.5 K/mm3 (1.3-6.7); Neutrophils Percent Auto 69.4 % (45.5-73.1); Platelet Count Result 187 k/mm3 (150-375); Red Blood Count 4.18 M/mm3 (4.2-5.4); Red Cell Distribution Width 13.6 % (11.5-14.5); White Blood Count 7.9 K/mm3 (4.5-10.0)
[2025-01-07 23:16] LABS: Add Urine Microscopic? NO; Appearance Urine Clear (Clear); Bilirubin Urine Negative (Negative); Blood Urine Negative (Negative); Color Urine Yellow (Yellow); Glucose Urine UA Negative (Negative); Ketones Urine Negative (Negative); Leukocyte Esterase Ur Negative LEU/UL (Negative); Nitrate Urine Negative (Negative); Protein Urine Negative (Negative); Specific Grav Ur 1.008 (1.001-1.035); Urobilinogen Urine 0.2 mg/dL (<2.0); pH Urine 6.5 (5.0-9.0)
[2025-01-07 23:29] LABS: Creatinine Urine 43.2 mg/dL; Total Protein Urine Random 9 mg/dL; Ur Ttl Prot Creatinine Ratio 0.21 mg/mg (0-0.20)
[2025-01-07 23:35] LABS: Alanine Aminotransferase 19 U/L (6-35); Albumin Level 3.2 g/dL (3.5-5.1); Alkaline Phosphatase 110 U/L (38-126); Anion Gap 7 mmol/L (4-12); Aspartate Amino Transferase 22 U/L (14-36); Bilirubin,Total 0.2 mg/dL (0.2-1.3); Blood Urea Nitrogen 11 mg/dL (7-17); Calcium 8.5 mg/dL (8.4-10.2); Carbon Dioxide 18 mmol/L (22-30); Chloride 109 mmol/L (98-107); Estimated CRCL calculation 178 ml/min; Estimated Glomerular Filt Rate > 60; Glucose 101 mg/dL (65-110); Potassium 3.4 mmol/L (3.4-5.0); Sodium 134 mmol/L (137-145); Total Protein 6.2 g/dL (6.3-8.2); Uric Acid 3.9 mg/dL (2.5-7.5)
--- NOTE | 2025-01-07 23:55 | PC.NURSE ---
Dr. Duran at nurses station, update on pt, headache 1 out of 10, spots in vision prior to arrival to unit, labs, and blood pressure. Orders received to discharge pt with instructions to keep next scheduled appointment and when to return to the unit.
--- NOTE | 2025-01-07 23:59 | PC.NURSE ---
Pt discharged with instructions to keep next scheduled appointment and when to return to the unit, pt verbalizes understanding.
== END 2025-01-07 23:59 | disposition home or self-care (01) ==
LOC: ANHOBOP 22:32 → ANHOBPP 22:34
PROVIDERS: Obstetrics & Gynecology; Visit Provider Obstetrics & Gynecology
DX: O13.9 Gestational [pregnancy-induced] hypertension without significant proteinuria, unspecified trimester (principal); Z3A.00 Weeks of gestation of pregnancy not specified
CPT/HCPCS: 36415; 59025; 80053; 81003; 82570; 84156; 84550; 85025

== ENCOUNTER 2025-01-15 10:45 | Outpatient (RCR) | payer BC, SELFPAY ==
[2024-12-05 16:30] VITALS: BP 116/66; PULSE 95
[2024-12-13 16:23] VITALS: BP 132/71; PULSE 95
[2024-12-20 15:57] VITALS: BP 109/66; PULSE 103
[2025-01-01 14:21] VITALS: BP 124/72; PULSE 109
[2025-01-15 11:14] VITALS: BP 123/69; PULSE 94
== END 2025-01-26 09:54 | disposition other institution (70) ==
LOC: ANHOBOP 10:45
PROVIDERS: PCP Pediatrics; Visit Provider Obstetrics & Gynecology
DX: O24.419 Gestational diabetes mellitus in pregnancy, unspecified control (principal)
CPT/HCPCS: 59025

== ENCOUNTER 2025-01-21 16:58 | Inpatient (IN) | payer BC, SELFPAY ==
--- OUTSIDE RECORDS SUMMARY | 2025-01-21 17:02 | XMS_ITS ---
Author Organization [facility] Address [address] [place] [address] Care Team Providers Care Filling Operator Name Role Phone Dr. Davis Villeda Primary Care Provider [phone] Migration, Provider Unavailable Unavailable Allergies Allergen (clinical [...] Active Encounters Encounter Location Date Provider Diagnosis [address] [address] 06/24/2024 Provider Migration Plan Of Treatment Next Appt Details Provider Name:Dr. Davis li, 03/18/2025 10:30:00 AM, [address] [place] [address], [address], [phone] Progress Notes * Sarahi RAMONOB:[birth year] (29 yo F)Acc No.[id number]:06/24/2024 Patient: Michael JOSUESHEREEYuval CRUZn :1995 A ge:28 Y S ex:Female Address:[address] [place], [place] [address]annabella [facility] [place] , [place], [address] Subjective: * Chief Complaints: * E MR-Armando [...]
--- OUTSIDE RECORDS SUMMARY | 2025-01-21 17:03 | XMS_ITS | Clinical Summary ---
Author Organization [facility] Address [facility] [place] [address] Care Team Providers Care Reduction Plant Supervisor Name Role Phone Davis Villeda MD Primary Care Provider [phone] Allergies Active Allergy Reactions Criticality Noted Date [...] Comments Blood Pressure 122/73 07/15/2024 1:15 AM TAPING SUPERVISOR Pulse 107 07/15/2024 12:41 AM TAPING SUPERVISOR Temperature 36.6 C (97.8 F) 07/15/2024 12:41 AM TAPING SUPERVISOR Respiratory Rate 16 07/15/2024 12:41 AM TAPING SUPERVISOR Oxygen Saturation 96% 07/15/2024 1:15 AM TAPING SUPERVISOR Inhaled Oxygen Concentration - - Weight 97.5 kg (215 lb) 07/15/2024 12:41 AM TAPING SUPERVISOR Height 185.4 cm (6' 1) 07/15/2024 12:41 AM TAPING SUPERVISOR Body Mass Index 28.37 07/15/2024 12:41 AM TAPING SUPERVISOR Plan of Treatment Health Maintenance Due Date [...] (05/10/2022 10:14 AM CDT) THIN PREP PAP [address] [address] Department of Pathology Pathology Report CERVICAL/VAGINAL PAP SMEAR REPORT Name: FATMATA RAMON Age: 6 1995 (Age: 26) Location: [facility] Sex: F Collected Date: 05/10/2022 Hospital #: [id number] Date Received: 05/12/2022 Date Reported: 05/13/2022 Provider: [...] is not effective in detecting cervical adenocarcinoma. [facility] 05/10/2022 10:1 4 AM CDT 05/12/2022 10:14 AM CDT Comment:CERVICAL/ENDOCERVICA L us Lukasz REGALADO PATHOLOGY/CYTOLOGY ORDERABLE S Final Result [facility] [address] [id number], from Last 3 Months or Most Recently Relevant to Health Maintenance Insurance Care Teams Reduction Plant Supervisor Relationship Specialty Start Date End Date Davis Villeda MD [address] [place] [address] PCP - General PEDIATRICS 07/06/23
--- OUTSIDE RECORDS SUMMARY | 2025-01-21 17:03 | XMS_ITS | Encounter Summary ---
Author Organization [facility] Address [address] [facility] [place] [address] Care Team Providers Care Parking Attendant Name Role Phone Unavailable Primary Care Provider Unavailabl e Encounter Details Date Type Department Care Team (Latest Contact Info) Description 02/16/2024 Lab Requisition [facility] [address] [place] [address] Carla Chavez MD [phone] [facility] [address] [place] [address] Hyperstimulation of ovaries Social History Tobacco Use Types Packs/Day Years Used Date Smoking Tobacco: Never Assessed Comments Unknown Sex and Gender Information Value Date Recorded Sex Assigned at Not on file Legal Sex Female 5:41 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 Gender Identity Not on file Sexual Orientation [...] - 5.1 mmol/L 02/16/2024 12:56 PM CDT [facility] Chloride 106 98 - 107 mmol/L 02/16/2024 12:56 PM CDT [facility] CO2 26 22 - 29 mmol/L 02/16/2024 12:56 PM CDT [facility] Calcium 9.6 8.4 - 10.4 mg/dL 02/16/2024 12:56 PM CDT [facility] Anion Gap 9 6 - 16 mmol/L 02/16/2024 12:56 PM CDT [facility] BUN 10 5.3 - 18.7 mg/dL 02/16/2024 12:56 PM CDT [facility] Creatinine 0.79 0.57 - 1.11 mg/dL 02/16/2024 12:56 PM CDT [facility] Alkaline Phosphatase 56 40 - 150 U/L 02/16/2024 12:56 PM CDT [facility] ALT 18 0 - 55 U/L 02/16/2024 12:56 PM CDT [facility] AST 13 5 - 34 U/L 02/16/2024 12:56 PM CDT [facility] Protein Total 6.6 6.4 - 8.3 gm/dL 02/16/2024 12:56 PM CDT [facility] Albumin 3.6 3.4 - 5.0 gm/dL 02/16/2024 12:56 PM CDT [facility] Bilirubin Total 0.6 0.2 - 1.2 mg/dL 02/16/2024 12:56 PM CDT [facility] eGFR by CKD-EPI >90 >=90 mL/min/1.7 3 m2 02/16/2024 12:56 PM T [facility] Blood BLOOD SPECIMEN / Unknown Venipuncture / Unknown 02/16/2024 12:15 PM CDT 02/16/2024 12:15 PM CDT us Carla Chavez MD LAB - CHEMISTRY ORDERA BLES Final Result [facility] [address] [place] [address] * (ABNORMAL) CBC WITH DIFFERENTIAL (02/16/2024 12:15 PM CDT) [facility] WBC 7.4 4.0 - 10.7 x10E9/L 02/16/2024 12:32 PM CDT [facility] RBC Count 3.96 3.90 - 5.20 x10E12/L 02/16/2024 12:32 PM CDT [facility] Hemoglobin 11.4(L) 11.9 - 15.8 g/dL 02/16/2024 12:32 PM CDT [facility] Hematocrit 35.5 34.8 - 46.1 % 02/16/2024 12:32 PM CDT [facility] MCV 89.6 80.0 - 98.0 fL 02/16/2024 12:32 PM CDT [facility] MCH 28.8 26.7 - 33.6 pg 02/16/2024 12:32 PM CDT [facility] MCHC 32.1 31.7 - 36.3 g/dL 02/16/2024 12:32 PM CDT [facility] RDW-CV 11.9 11.3 - 14.8 % 02/16/2024 12:32 PM CDT [facility] Platelet Count 172 150 - 420 x10E9/L 02/16/2024 12:32 PM CDT [facility] MPV 10.6 7.8 - 11.4 fL 02/16/2024 12:32 PM CDT [facility] Neutrophil % 74.5(H) 41.0 - 74.0 % 02/16/2024 12:32 PM CDT [facility] Lymphocyte % 13.4(L) 17.0 - 47.0 % 02/16/2024 12:32 PM CDT [facility] Monocyte % 10.0 3.0 - 11.0 % 02/16/2024 12:32 PM CDT [facility] Eosinophil % 1.4 0.0 - 7.0 % 02/16/2024 12:32 PM CDT [facility] Basophil % 0.3 0.0 - 1.6 % 02/16/2024 12:32 PM CDT [facility] Immature Granulocytes % 0.4 0.0 - 1.0 % 02/16/2024 12:32 PM CDT [facility] Neutrophil Absolute 5.52 1.60 - 7.50 x10E9/L 02/16/2024 12:32 PM CDT [facility] Lymphocyte Absolute 0.99(L) 1.00 - 4.40 x10E9/L 02/16/2024 12:32 PM CDT [facility] Monocyte Absolute 0.74 0.15 - 1.00 x10E9/L 02/16/2024 12:32 PM CDT [facility] Eosinophil Absolute 0.10 0.00 - 0.60 x10E9/L 02/16/2024 12:32 PM CDT [facility] Basophil Absolute 0.02 0.00 - 0.13 x10E9/L 02/16/2024 12:32 PM CDT [facility] Blood BLOOD SPECIMEN / Unknown 02/16/2024 12:15 PM CDT 02/16/2024 12:15 PM CDT Carla Chavez MD LAB - HEMATOLOGY ORDER EDITA Final Result Performing Organization Address City/State/[facility] Co de Phone Number [facility] [address] [place] [address] documented in this encounter Visit Diagnoses Diagnosis Hyperstimulation of ovaries Other ovarian hyperfunction documented in this encounter
--- OUTSIDE RECORDS SUMMARY | 2025-01-21 17:03 | XMS_ITS | Clinical Summary ---
Author Organization [facility] Address [address] [place] [address] Phone Care Team Providers Care Last Sorter Name Role Phone Unavailable Primary Care Provider Unavailabl e Encounters Date Type Department Care Team Description 11/08/2024 8:41 AM CDT - 11/08/2024 11:59 PM CDT Hospital Encounter [facility] [address] [place] [address] Surjit Freed MD Discharge Disposition: Home or Self Care 10/23/2024 External Device Data STL ABSTRACTION Provider, Abstract from Last 3 Months Social History Tobacco Use Types Packs/Day Years Used Date Smoking Tobacco: Never Assessed Comments Unknown Sex and Gender Information Value Date Recorded Sex Assigned at Not on file 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 Name: FATMATA RAMON Study Date: 11/08/2024 8:42am Pat. NO: [id number] Referring MD: SURJIT FREED MD Site: [facility] [employer] Professor: Maria Luisa Reid RDMS : 1995 Age: 28 ----- INDICATION ----- IVF Resulting from Assistive Reproductive Technique Low Lying Placenta NOS or without Hemorrhage CODING ----- Diagnoses Z3A.28: Weeks of gestation O09.813: Supervision of resulting from assisted reproductive technology Z3A.28: Weeks of gestation O09.813: Supervision of resulting from assisted reproductive technology O44.43: Low lying placenta NOS or without hemorrhage Procedures 32806: Ultrasound, uterus, real time with image documentation 97312: Ultrasound, uterus, real time with image documentation, [...] 2 lb 13 oz EFW by Hadlock ([id number]) Extremities / Bony Struc Biometry: FL / [...] and date of were verified by the business intelligence consultant prior to the exam. Chyna Baeza was present for the transvaginal ultrasound and served as a cso. IMPRESSION ----- Impression: - Ernst viable intrauterine [...] Pat. Name:Kilo RAMON Date:11/08/2024 8:42am Pat. NO: [id number] MD:SURJIT FREED MD [facility]Maria Luisa Reid RDMS :1995Age:28 ----- INDICATION ----- IVF Resulting from Assistive Reproductive Technique Low Lying Placenta NOS or without Hemorrhage CODING ----- Diagnoses Z3A.28: Weeks of gestation O09.813: Supervision of resulting fromassisted reproductive technology Z3A.28: Weeks of gestation O09.813: Supervision of resulting fromassisted reproductive technology O44.43: Low lying placenta NOS or withouthemorrhage Procedures 25512: Ultrasound, uterus, real time withimage documentation 13925: Ultrasound, uterus, real time withimage documentation, follow up, transabdominal approach per fetus HISTORY ----- OB History 2. Para 0 A1 MATERNAL ASSESSMENT ----- Physical Exam Weight 100 kg. BMI 29.03 kg/m METHOD ----- Transabdominal and transvaginal ultrasound examination ----- Ernst . Number of fetuses: 1 DATING ----- GA by prior [id number] w + 4 d KRISH by prior [...] 2 lb 13 oz EFW by Hadlock ([id number]-FL) Extremities / Bony Struc Biometry: FL / [...] and date of were verified by the business intelligence consultant prior tothe exam. Chyna Baeza was present [...] your patient's care. us Surjit Freed MD ORDERABLES Edited Result - Final from Last 3 Months Insurance [facility] BLUE ACCESS CHOICE [facility]
--- OUTSIDE RECORDS SUMMARY | 2025-01-21 17:03 | XMS_ITS | Clinical Summary ---
Author Organization [facility] Address [address] [place] [address] Care Team Providers Care Retail Merchandising Manager Name Role Phone Unavailable Primary Care Provider Unavailabl e Source Comments [facility],non-[facility] health Affiliates and Associated Physician Practices is amultiple site organization consisting of ambulatory clinics and hospital sitesin [place], [place], [place] and [place]. This disclosure is being madepursuant to the Care Everywhere program and may not contain all information available regarding this patient. Last updated 18.[facility] [employer] Allergies Active Allergy Reactions Criticality Noted Date Comments Amoxicillin Urticaria Medium 11/27/2024 Red face Cephalexin Rash Medium 11/27/2024 Medications * Be aware that medications may not be up to date on this document. Alwaysverify current medications with the patient. No known medications Active Problems Problem Noted Date Diagnosed Date Diet controlled gestational diabetes mellitus (GDM) in third trimester 12/04/2024 In vitro fertilization 12/04/2024 Estimated Date of Delivery Comme nts Yes 01/27/2025 Based on last me nstrual period of 04/22/2024 Encounters Date Type Department Care Team Description 01/18/2025 8:10 AM CDT - 01/18/2025 11:59 PM CDT Hospital Encounter [facility] [address] [place] [id number] Lacey Aldrich MD Discharge Disposition: Home or Self Care 01/11/2025 12:29 PM CDT - 01/11/2025 11:59 PM CDT Hospital Encounter [facility] [address] [place] [address] Shahab Anna MD Discharge Disposition: Home or Self Care 01/04/2025 7:21 AM CDT - 01/04/2025 11:59 PM CDT Hospital Encounter [facility] [address] [place] [id number] 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 Reed MD 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 Discharge Disposition: Home or Self Care 12/25/2024 2:24 PM CDT - 12/25/2024 11:59 PM CDT Hospital Encounter [facility] [address] [place] [address] Paulie Aparicio MD Discharge Disposition: Home or Self Care 12/25/2024 2:23 PM CDT Hospital Encounter [facility] [address] [place] [phone] Paulie Aparicio MD Discharge Disposition: Home or Self Care 12/04/2024 8:15 AM CDT - 12/04/2024 11:59 PM CDT Hospital Encounter [facility] [address] [place] [id number] Shahab Anna MD Discharge Disposition: Home or Self Care from Last 3 Months Social History Tobacco Use Types Packs/Day Years Used Date Smoking Tobacco: Never Assessed Estimated Date of Delivery Comme nts Yes 01/27/2025 Based on last me nstrual period of 04/22/2024 Sex and Gender Information Value Date Recorded Sex Assigned at Not on file 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 Gender Identity Not on file Sexual Orientation Not on file Last Filed Vital Signs Vital Sign Reading Time Taken Comments Blood Pressure 108/58 01/18/2025 10:22 AM CDT Pulse 96 01/18/2025 10:22 AM CDT Temperature - - Respiratory Rate - - Oxygen Saturation - - Inhaled Oxygen Concentration - - Weight - - Height - - Body Mass Index - - Plan of Treatment Health Maintenance Due Date Last Done Comments HIV SCREENING 12/27/2010 HEPATITIS C SCREENING 12/23/2013 DTAP/TDAP/TD VACCINES (1 - Tdap) 12/27/2014 HEPATITIS B VACCINE (1 of 3 - 19+ 3-dose series) 12/27/2014 COVID-19 VACCINE (1 - 2023-2 5 season) 2024 DEPRESSION SCREENING 07/25/2024 OB-ONE HOUR GLUCOSE 10/21/2024 OB-RHOGAM INJECTION 11/04/2024 OB-GROUP B STREP SCREEN 12/23/2024 INFLUENZA VACCINE (Season Ended) 2025 PAP SMEAR 05/10/2025 05/10/2022 ZOSTER VACCINE (1 of 2) 12/27/2045 OB-TDAP CURRENT Completed 2024, 11/07/2008 HIB VACCINE Aged Out No longer eligi ble based on patient's age to complete this topic HPV VACCINE Aged Out No longer eligi ble based on patient's age to complete this topic MENINGOCOCCAL (Group B) VACCINE SHARED DECISION-MAKING Aged Out No longer eligible based on patient's age to complete this topic MENINGOCOCCAL GROUPS A/C/Y/W VACCINE Aged Out No longer eligible b ased on patient's age to complete this topic PNEUMOCOCCAL VACCINE Aged Out No long er eligible based on patient's age to complete this topic Respiratory Syncytial Virus (RSV) Vaccine Pt: or over 60 yrs (No Doses Required) Completed Procedures Procedure Name Priority Date/Time Associated Diagnosis Comments BIOPHYSICAL PROFILE W NST Routine 01/18/2025 8:04 AM CDT Subclinical hypothyroidism In vitro fertilization Diet controlled gestational diabetes mellitus (GDM) in third trimester (HCC) 37 weeks gestation of (HCC) Encounter for ultrasound (HCC) BIOPHYSICAL PROFILE W NST Routine 01/11/2025 2:11 PM CDT Subclinical hypothyroidism In vitro fertilization Diet controlled gestational diabetes mellitus (GDM) in third trimester (HCC) 37 weeks gestation of (HCC) Encounter for ultrasound (HCC) BIOPHYSICAL PROFILE W NST Routine 01/04/2025 7:22 AM CDT Diet controlled gestational diabetes mellitus (GDM) in third trimester (HCC) SONOGRAM - COMPLETE Routine 12/25/2024 2 :48 PM CDT Encounter for ultrasound to assess growth (HCC) Subclinical hypothyroidism In vitro fertilization Insulin controlled gestational diabetes mellitus (GDM) in third trimester (HCC) 35 weeks gestation of (HCC) SONOGRAM - COMPLETE Routine 12/04/2024 8 :05 AM CDT Encounter for ultrasound to assess growth (HCC) Subclinical hypothyroidism In vitro fertilization from Last 3 Months Results * Biophysical Profile w NST (01/18/2025 8:04 AM CDT) Only the most recent of3 resultswithin the time period is included. Linked Results Indication ======== IVF GDM-A2 managed by OB Normal echocardiogram with [facility] History ====== OB History 2. Para 0 [id number] Lab Tests Test Date Result Declined Maternal Assessment Physical Exam Height 183 cm, 6 ft 0 in. Weight 105 kg, 231 lb. Initial weight 98 kg, 217 lb. BMI 31.33 kg/m . Initial BMI 29.43 kg/m . Weight gain 6 kg, 14 lb Method ====== Transabdominal ultrasound examination. View: Suboptimal view: limited by position ========= Ernst . Number of fetuses: 1 Dating ====== Date Details Gest. age KRISH LMP 04/22/2024 38 w + 5 d 01/27/2025 Stated KRISH 38 w + 5 d 01/27/2025 Assigned dating based on the LMP, selected on 12/25/2024 38 w + 5 d 01/27/2025 General Evaluation Cardiac activity present. FHR 142 bpm. Presentation: cephalic Placenta: Placental site: right lateral Amniotic Fluid Assessment ==== Amount of AF: normal MVP 5.7 cm. RODRICK 16.6 cm. Q1 4.7 cm, Q2 5.7 cm, Q3 3.3 cm, Q4 2.8 cm Biophysical Profile 2: breathing movements 2: Gross body movements 2: tone 2: Amniotic fluid volume NST: reactive 05/03 Biophysical profile score Non Stress Test NST interpretation: reactive. Baseline FHR 130 bpm. Baseline variability: moderate. Accelerations: present Biometry BPD 92.3 mm 37w 3d 47% Hadlock HC 330.5 mm 37w 4d 14% Hadlock AC 366.3 mm 40w 4d 97% Hadlock Femur 73.4 mm 37w 4d 27% Hadlock Humerus 63.5 mm 36w 6d 35% Dalton HC / AC 0.90 Weight Calculation: EFW 3,714 g 77% Hadlock EFW (lb,oz) 8 lb 3 oz EFW by Hadlock ([id number]) overall normal range, but the AC is >90% Growth Overview Exam date GA BPD (mm) HC (mm) AC (mm) FL (mm) HL (mm) EFW (g) 12/04/2024 32w 2d 85.9 95% 307 65% 280.7 44% 61.4 26% 52.7 14% 1979 45% 12/25/2024 35w 2d 90.7 89% 313.5 15% 324.6 85% 68.2 36% 59.5 49% 2807 66% 01/18/2025 38w 5d 92.3 47% 330.5 14% 366.3 97% 73.4 27% 63.5 35% 3714 77% Anatomy The following structures appear normal: Abdomen Stomach. Kidneys. Bladder. Impression ========= Single, live, intrauterine at 38w 5d The growth is overall normal range, but the AC is >90% . The amniotic fluid volume is normal. The biophysical profile is 05/03. Comment ======== ultrasound alone cannot detect all structural, genetic, or functional , placental, or maternal abnormalities Follow-up ======== Continue weekly BPP with 2x weekly NST *IOL scheduled Tuesday01/21/25 Coding ====== Procedures 67026: [place] [address]: Biophysical Profile W NST [facility] Cardiac Dimensions PACS Anatomical Region Laterality Modality Other 01/18/2025 8:04 AM CDT Surjit L Joe Nicholas MD [facility] ORDERABLES Edited Result - Final * SONOGRAM - COMPLETE (12/25/2024 2:48 PM CDT) Only the most recent of2 resultswithin the time period is included. Linked Results Indication ======== IVF , KFA-G0-Jfmej A2 managed by OB Normal echocardiogram with [facility] History ====== OB History 2. Para 0 Lab Tests Test Date Result Declined Maternal Assessment Physical Exam Height 183 cm, 6 ft 0 in. Initial weight 98 kg, 217 lb. Initial BMI 29.43 kg/m Method ====== Transabdominal ultrasound, Transabdominal ultrasound examination. View: Sufficient ========= Ernst . Number of fetuses: 1 Dating ====== Date Details Gest. age KRISH LMP 04/22/2024 35 w + 2 d 01/27/2025 Assigned dating based on the LMP, selected on 12/25/2024 35 w + 2 d 01/27/2025 General Evaluation Cardiac activity present. FHR 129 bpm. Presentation: cephalic Placenta: Placental site: right lateral Amniotic Fluid Assessment == Amount of AF: normal MVP 3.0 cm. RODRICK 11.0 cm. Q1 2.8 cm, Q2 2.9 cm, Q3 3.0 cm, Q4 2.3 cm Biophysical Profile 2: breathing movements 2: Gross body movements 2: tone 2: Amniotic fluid volume NST: reactive 10/10 Biophysical profile score Non Stress Test NST interpretation: reactive. Baseline FHR 130 bpm. Baseline variability: moderate. Accelerations: present. Decelerations: absent Biometry BPD 90.7 mm 36w 5d 89% Hadlock HC 313.5 mm 35w 1d 15% Hadlock AC 324.6 mm 36w 3d 85% Hadlock Femur 68.2 mm 35w 0d 36% Hadlock Humerus 59.5 mm 34w 4d 49% Dalton HC / AC 0.97 Weight Calculation: EFW 2,807 g 66% Hadlock EFW (lb,oz) 6 lb 3 oz EFW by Hadlock ([id number]-FL) appropriate Growth Overview Exam date GA BPD (mm) HC (mm) AC (mm) FL (mm) HL (mm) EFW (g) 12/04/2024 32w 2d 85.9 95% 307 65% 280.7 44% 61.4 26% 52.7 14% 1979 45% 12/25/2024 35w 2d 90.7 89% 313.5 15% 324.6 85% 68.2 36% 59.5 49% 2807 66% Anatomy The following structures appear normal: Abdomen Stomach. Kidneys. Bladder. The following structures could not be adequately visualized: Head / Neck Lateral ventricles. Midline falx. Cerebellum. Cisterna magna. Thalami. Abdomen Cord insertion. Genitals. Spine Cervical spine. Thoracic spine. Lumbar spine. Sacral spine. Extremities / Skeleton Hands. Feet. The following structures were documented previously: Head / Neck Cranium. Choroid plexus. Cavum septi pellucidi. Face Lips. Profile. Nose. Orbits. Heart / Thorax 4-chamber view. RVOT view. LVOT view. 3-vessel view. 0-kjkumb-xvgkgtk view. Situs. Aortic arch view. Bicaval view. Ductal arch view. Interventricular septum. Great vessels. Right lung. Left lung. Diaphragm. Extremities / Skeleton Arms. Legs. Impression ========= Single, live, intrauterine at 35w2d Appropriate size and interval growth Amniotic fluid volume: normal Biophysical profile: reassuring No major malformations were seen within the limits of today's ultrasound Incomplete anatomic survey due to position and late gestational age Comment ======== ultrasound alone cannot detect all structural, genetic, or functional , placental, or maternal abnormalities Follow-up ======== Continue weekly BPP with 2x weekly NST Coding ====== Procedures 43758: [place] [address]: Biophysical Profile W NST [facility] Cardiac Dimensions PACS Anatomical Region Laterality Modality Other 12/25/2024 2:48 PM CDT Surjit Nicholas MD [facility] ORDERABLES Edited Result - Final from Last 3 Months Insurance [facility] Address: [facility] [id number] [place] [phone]
--- OUTSIDE RECORDS SUMMARY | 2025-01-21 17:03 | XMS_ITS | Clinical Summary ---
Author Organization 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
--- OUTSIDE RECORDS SUMMARY | 2025-01-21 17:03 | XMS_ITS ---
Author Organization [facility] Address [address] [place] [phone] Care Team Providers Care Recreation Attendant Name Role Phone Dr. Davis Villeda Primary Care Provider [phone] Migration, Provider Unavailable Unavailable REASON FOR VISIT [facility] Encounters Encounter Location Date Provider Diagnosis [facility] [address] [place] [address] 06/23/2024 Provider Migration Plan Of Treatment Medication [...] Provider Name:Dr. Davis li, 03/18/2025 10:30:00 AM, [address] [place] [address], [place], [address], [phone] Progress Notes * Sarahi RAMONOB:[birth year] (29 yo F)Acc No.[id number]:06/23/2024 Patient: Fatmata MCNEIL :1995 A ge:28 Y S ex:Female Address:[address] [place] [id number] * Refills Stop Levothyroxine Sodium Tablet, 50 [...]
--- OUTSIDE RECORDS SUMMARY | 2025-01-21 17:03 | XMS_ITS | Patient Health Record ---
Author Organization [facility] Address [address] [place] [address] Care Team Providers Care Dancer Or Choreographer Name Role Phone Dr. Davis Villeda Primary Care Provider [phone] Migration, Provider Unavailable Unavailable Allergies Allergen (clinical drug ingredient) Drug/Non Drug Allergy documented on EMR Reaction Allergy Type Onset Date Status Information temporarily unavailable Amoxicillin rash as an infant Drug Allergy 01/27/2022 Active Information temporarily unavailable Keflex nausea and abdominal cramping Drug Allergy [...] Problem Status W/U Status Risk Notes Problem Hypothyroidism (20548738) Hypothyroidism, unspecified (E03.9) 05/27/20 23 Active confirmed Problem Acute upper respiratory infection (18844096) Acute upper respiratory infections of unspecified site (465.9) 09/14/19 17 Problem resolved confirmed Problem Malaise and fatigue (404129473) Other malaise and fatigue (780.79) 09/06/19 17 Problem resolved confirmed Problem General examination of patient (961932527) Routine general medical examination at health care facility (V70.0) 12/08/19 17 Problem resolved confirmed Problem Eruption of skin (962723430) Rash and other nonspecific skin eruption (R21) 09/06/19 17 Problem resolved confirmed Problem Fatigue (58563870) Other fatigue (R53.83) 09/06/19 17 Problem resolved confirmed Problem Acute upper respiratory infection (05764611) Acute upper respiratory infection, unspecified (J06.9) 05/08/20 18 Problem resolved confirmed Problem Fatty liver (730646508) Fatty (change of) liver, not elsewhere classified [...] 07/20/2024 Encounters Encounter Location Date Provider Diagnosis [address] [address] 07/20/2024 Dr. Davis Villeda Hypothyroidism, unspecified E03.9 ; Fatty (change of) liver, not elsewhere classified K76.0 and Second trimester Z34.[address] [address] 06/23/2024 Provider Migration [address] [address] 06/24/2024 Provider Migration Assessments Encounter Date Diagnosis (ICD Code) Assessment Notes Treatment Notes Treatment Clinical Notes Section Notes 07/20/2024 Hypothyroidism, unspecified (ICD-10 - E03.9) 07/20/2024 Fatty (change of) liver, not elsewhere classified (ICD-10 - K76.0) 07/20/2024 Second trimester (ICD-10 - Z34.92) Plan Of Treatment Next Appt Details Provider Name:Dr. Davis li, 03/18/2025 10:30:00 AM, [address] [facility], [place], [address], [phone] Insurance Providers Payer Name Payer Address Payer Phone Subscriber Number Group Number Insured Name Patient Relationship to Insured Coverage Start Date Coverage End Date [employer] [address] [place] [address] [id number] Fatmata Ulloa Self - patient is the insured 4 Medical (General) History Medical History History ICD Code Thyroid disorder Liver enzyme elevation Slight hearing loss Surgical History Surgery Date(Month/Year) Appendectomy 09/06/2016
--- OUTSIDE RECORDS SUMMARY | 2025-01-21 17:03 | XMS_ITS | Referral Summary ---
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
[2025-01-21 17:15] VITALS: BP 135/77; PULSE 110
[2025-01-21 17:45] VITALS: BMI 30.5
--- NOTE | 2025-01-21 17:48 | LDADM ---
This patient, Fatmata Ulloa, was admitted to Labor/Delivery/Recovery 108 on 01/21/25 at 16:58. Plans for labor, pain management and were discussed with patient. Patient/family oriented to hospital policies and general routines including ID bracelet, bed and alarms, visiting hours, pain management, procedures, bathroom and other care routines, personal items, smoking policy, room service/diet and guest tray routines, security routines, and visiting hours. Patient/Family are encouraged to report perceived risks to care and to ask questions if they do not understand what they are told or what they should do. See OBIX for further documentation.
[2025-01-21 17:53] LABS: Hematocrit 38.8 % (37.0-47.0); Hemoglobin 12.9 g/dL (12.0-15.0); Immature Granulocyte Percent A 0.3 % (0-0.5); Lymphocytes Absolute Auto 1.37 K/mm3 (0.9-3.2); Mean Corpuscular HGB Conc 33.2 g/dl (32-36); Mean Corpuscular Hemoglobin 28.9 pg (26-34); Mean Corpuscular Volume 87.0 fl (80-100); Nucleated Red Blood Cells Absolute Auto 0.000 K/mm3 (0.0-0.012); Nucleated Red Blood Cells Perc 0.0 % (0.0-0.2); Platelet Count Result 185 k/mm3 (150-375); Red Blood Count 4.46 M/mm3 (4.2-5.4); White Blood Count 9.3 K/mm3 (4.5-10.0)
[2025-01-21 18:41] LABS: Syphilis IgG/IgM Antibody Non-Reactive (Nonreactive)
[2025-01-21 20:00] VITALS: TEMP 36.8
[2025-01-21 20:01] VITALS: BP 127/82; PULSE 112
--- NOTE | 2025-01-21 20:19 | WPDANESEPP ---
Anes - Eval Pre Procedure Procedure: Labor epidural Date/Time: 01/21/25 20:19 Surgeon: Joe Preop Diagnosis: Abdominal pain with contractions Pre Op Diagnosis: IOL Patient Data Age: 29 Gender: F Height: 1.85 m Weight: 105 kg Last Vital Signs Pulse 112 H 01/21/25 20:01 BP 127/82 01/21/25 20:01 O2 Del Method Room Air 01/21/25 17:45 Allergies Allergy/AdvReac Type Severity Reaction Status Date / Time cephalexin Allergy Unknown Rash Verified 01/15/25 11:52 amoxicillin Allergy Hives / Verified 01/15/25 11:52 Red Face Home Medications ?Medication ?Instructions ?Recorded ?Confirmed ?Type levothyroxine 50 mcg tablet 50 mcg PO .QOD 01/13/23 01/21/25 History (Synthroid) levothyroxine 75 mcg tablet 75 mcg PO .QOD 01/13/23 01/21/25 History (Synthroid) vitamin#30 30 mg iron-10 1 cap PO HS 06/18/24 01/21/25 History mg iron-folic acid 1 mg-omg3 capsule aspirin 81 mg capsule 81 mg PO DAILY 08/07/24 01/21/25 History Dexcom G7 Sensor (blood-glucose #3 ea 12/04/24 12/27/24 Rx sensor) RSV vac, preF A and preF B(PF) 120 0.5 ml IM ONCE #1 ea 12/13/24 01/01/25 Rx mcg/0.5 mL IM solution (Abrysvo (PF)) pen needle, diabetic 32 gauge x #100 ea 12/20/24 12/27/24 Rx 5/32 (Qian Pen Needle) insulin NPH isoph U-100 human 100 20 unit subcut QPM 01/01/25 01/21/25 History unit/mL (3 mL) subcutaneous pen (Humulin N NPH U-100 Insulin KwikPen) Laboratory Tests 01/21/25 17:41 WBC 9.3 K/mm3 (4.5-10.0) RBC 4.46 M/mm3 (4.2-5.4) Hgb 12.9 g/dL (12.0-15.0) Hct 38.8 % (37.0-47.0) MCV 87.0 fl (80-100) MCH 28.9 pg (26-34) MCHC 33.2 g/dl (32-36) RDW 13.4 % (11.5-14.5) Plt Count 185 k/mm3 (150-375) MPV 10.4 fl (7.4-10.4) Immature Gran % (Auto) 0.3 % (0-0.5) Neut % (Auto) 75.0 H % (45.5-73.1) Lymph % (Auto) 14.8 L % (18.3-44.2) [place] % (Auto) 7.1 % (2.6-8.5) Eos % (Auto) 2.6 % (0-4.4) Baso % (Auto) 0.2 % (0.2-1.2) Lymph # (Auto) 1.37 K/mm3 (0.9-3.2) [place] # (Auto) 0.7 H K/mm3 (0.1-0.6) Eos # (Auto) 0.2 K/mm3 (0-0.3) Baso # (Auto) 0.0 K/mm3 (0.0-0.1) Abs Immat Gran (auto) 0.03 K/mm3 (0.00-0.031) Absolute Neuts (auto) 7.0 H K/mm3 (1.3-6.7) Absolute Nucleated RBC 0.000 K/mm3 (0.0-0.012) Nucleated RBC % 0.0 % (0.0-0.2) Syphilis IgG/IgM Ab Non-reactive (Nonreactive) Blood Type O Positive Antibody Screen Negative : gestational age HCG: positive Patient hx anesthesia problems: none Family hx anesthesia problems: none Results Review: All pre-operative results and documents have been reviewed as part of the pre-operative evaluation. [facility] Past Medical History Medical History Overweight (BMI 25.0-29.9) Gestational diabetes requiring insulin History of miscarriage 02/11/23 Thyroid disorder Surgical History Surgical History History of appendectomy S/P appendectomy Family History Family History Other Diabetes mellitus Hypertension Thyroid disorder Social History Social History Smoking status: Never smoker Alcohol intake: current Substance use: never Substance use type: does not use Do You Feel Safe in your Home?: Yes Lack of Transportation: No Lack of Food: Never True Current Housing: I Have Housing Concerned About Future Housing: No Difficulty Paying Gas/Electric Bills: No Difficulty Paying for Meds: No Currently Unemployed: No Education: Master's Degree or Higher Difficulty w/ Childcare or Family Care: No Spiritual care concerns: No Exam Day of Procedure 01/21/25 20:19 Patient weight: overweight Airway: Mallampati scale class II
[2025-01-21 21:01] VITALS: BP 101/55; PULSE 86
[2025-01-21] MEDS: INSULIN HUMAN NPH (*BKC) 100 UNITS/ML 20 UNITS SUB-Q (21:55)
[2025-01-21 22:00] VITALS: TEMP 36.6
[2025-01-21 23:01] VITALS: BP 116/67; PULSE 82
[2025-01-22] VITALS (127 sets, daily range): BP systolic 77–136; BP diastolic 42–113; PULSE 69–178; TEMP 36.3–37.3; O2SAT 83–100
[2025-01-22] MEDS: LACTATED RINGERS 1,000 ML 125 ML IV CONT ×3 (06:02→16:56)
[2025-01-22] MEDS: TERBUTALINE SULFATE 1 MG/ML VIAL 0.25 MG SUB-Q (06:04)
[2025-01-22] MEDS: OXYTOCIN 30 UNITS/NS 500 ML 30 UNITS/500 ML BAG 6 UNITS IV CONT (11:34)
[2025-01-22] MEDS: ONDANSETRON INJ 4 MG/2 ML VIAL IV PUSH (15:45)
--- NOTE | 2025-01-22 16:36 | PM.IMHP ---
H&P: HPI History of Present Illness Date/Time: 01/22/25 16:36 Chief Complaint: Medical induction of labor Narrative: at 39 weeks with an EDC of 01/27/2025 by me have conception. course significant for insulin requiring gestational diabetes. She has had reassuring surveillance testing in 3rd trimester. If W last ultrasound for growth approximately 66 percentile. history also significant for hypothyroidism. GBS negative. Review of Systems Review of Systems: All systems reviewed & are unremarkable except as noted in HPI and below Constitutional: Constitutional: Reports no additional constitutional complaints and Denies headache(s) Eyes: Eyes: Denies spots in vision ENT: Reports system reviewed and no additional complaints, except as documented and Denies headache(s) Cardiovascular: Cardiovascular: Denies chest pain and Denies dyspnea Respiratory: Respiratory: Denies dyspnea Gastrointestinal: Gastrointestinal: Reports no additional gastrointestinal complaints Genitourinary: Genitourinary: Reports amenorrhea Musculoskeletal: Musculoskeletal: Reports no additional musculoskeletal complaints Integumentary/Breasts: Skin/Breast: Denies breast mass and Denies rash Neurologic: Denies headache(s) Psychiatric: Psychiatric: Reports no additional psychiatric complaints [facility] Past Medical History Medical History Overweight (BMI 25.0-29.9) Gestational diabetes requiring insulin History of miscarriage 02/11/23 Thyroid disorder Surgical History Surgical History History of appendectomy S/P appendectomy Family History Family History Other Diabetes mellitus Hypertension Thyroid disorder Social History Social History Smoking status: Never smoker Alcohol intake: current Substance use: never Substance use type: does not use Do You Feel Safe in your Home?: Yes Lack of Transportation: No Lack of Food: Never True Current Housing: I Have Housing Concerned About Future Housing: No Difficulty Paying Gas/Electric Bills: No Difficulty Paying for Meds: No Currently Unemployed: No Education: Master's Degree or Higher Difficulty w/ Childcare or Family Care: No Spiritual care concerns: No Meds Home Medications and Allergies Home Medications ?Medication ?Instructions ?Recorded ?Confirmed ?Type levothyroxine 50 mcg tablet 50 mcg PO .QOD 01/13/23 01/21/25 History (Synthroid) levothyroxine 75 mcg tablet 75 mcg PO .QOD 01/13/23 01/21/25 History (Synthroid) vitamin#30 30 mg iron-10 1 cap PO HS 06/18/24 01/21/25 History mg iron-folic acid 1 mg-omg3 capsule aspirin 81 mg capsule 81 mg PO DAILY 08/07/24 01/21/25 History Dexcom G7 Sensor (blood-glucose #3 ea 12/04/24 12/27/24 Rx sensor) RSV vac, preF A and preF B(PF) 120 0.5 ml IM ONCE #1 ea 12/13/24 01/01/25 Rx mcg/0.5 mL IM solution (Abrysvo (PF)) pen needle, diabetic 32 gauge x #100 ea 12/20/24 12/27/24 Rx 5/32 (Qian Pen Needle) insulin NPH isoph U-100 human 100 20 unit subcut QPM 01/01/25 01/21/25 History unit/mL (3 mL) subcutaneous pen (Humulin N NPH U-100 Insulin KwikPen) Allergies Allergy/AdvReac Type Severity Reaction Status Date / Time cephalexin Allergy Unknown Rash Verified 01/15/25 11:52 amoxicillin Allergy Hives / Verified 01/15/25 11:52 Red Face Vital Signs Vital Signs - 24 hr 01/21/25 17:15 01/21/25 17:45 01/21/25 20:00 Temperature 98.2 F Pulse Rate 110 H Blood Pressure 135/77 Pulse Oximetry Oxygen Delivery Room Air 01/21/25 20:01 01/21/25 21:01 01/21/25 22:00 Temperature 98 F Pulse Rate 112 H 86 Blood Pressure 127/82 101/55 L Pulse Oximetry Oxygen Delivery 01/21/25 23:01 01/22/25 00:00 01/22/25 00:01 Temperature 97.9 F Pulse Rate 82 91 Blood Pressure 116/67 116/79 Pulse Oximetry Oxygen Delivery 01/22/25 01:01 01/22/25 02:01 01/22/25 03:00 Temperature Pulse Rate 89 95 82 Blood Pressure 132/67 111/57 L 116/74 Pulse Oximetry Oxygen Delivery 01/22/25 04:01 01/22/25 05:01 01/22/25 06:04 Temperature Pulse Rate 90 92 Blood Pressure 122/74 125/74 Pulse Oximetry 98 Oxygen Delivery 01/22/25 06:09 01/22/25 06:14 01/22/25 06:19 Temperature Pulse Rate Blood Pressure Pulse Oximetry 100 100 100 Oxygen Delivery 01/22/25 06:24 01/22/25 06:30 01/22/25 06:35 Temperature 97.7 F Pulse Rate 98 Blood Pressure 130/76 Pulse Oximetry 100 100 Oxygen Delivery 01/22/25 06:40 01/22/25 06:45 01/22/25 06:50 Temperature Pulse Rate 93 Blood Pressure 129/72 Pulse Oximetry 100 100 100 Oxygen Delivery 01/22/25 06:55 01/22/25 07:00 01/22/25 07:30 Temperature Pulse Rate 95 92 Blood Pressure 125/77 125/72 Pulse Oximetry 100 Oxygen Delivery 01/22/25 08:00 01/22/25 08:07 01/22/25 08:57 Temperature Pulse Rate 102 H Blood Pressure 130/79 107/74 Pulse Oximetry Oxygen Delivery Room Air 01/22/25 09:00 01/22/25 09:31 01/22/25 10:01 Temperature Pulse Rate 111 H 103 H 119 H Blood Pressure 128/85 118/81 123/88 Pulse Oximetry Oxygen Delivery 01/22/25 10:31 01/22/25 12:05 01/22/25 12:10 Temperature 99.2 F Pulse Rate 109 H 96 Blood Pressure 121/77 117/71 Pulse Oximetry Oxygen Delivery 01/22/25 12:31 01/22/25 13:01 01/22/25 14:01 Temperature 98.2 F Pulse Rate 98 95 113 H Blood Pressure 132/86 136/98 H 124/70 Pulse Oximetry Oxygen Delivery 01/22/25 14:31 01/22/25 15:00 01/22/25 15:27 Temperature 97.7 F Pulse Rate 96 94 Blood Pressure 107/64 120/74 Pulse Oximetry Oxygen Delivery 01/22/25 15:30 01/22/25 15:31 01/22/25 16:27 Temperature 97.7 F Pulse Rate 95 89 Blood Pressure 117/78 121/64 Pulse Oximetry Oxygen Delivery 01/22/25 16:31 Temperature Pulse Rate 121 H Blood Pressure 121/92 H Pulse Oximetry Oxygen Delivery Exam Const: General: no acute distress Eyes: General: appearance normal, both eyes and all related structures Resp: Effort & Inspection: normal respiratory effort Cardio: Rate: regular rate GI: Other: Gravid no fundal tenderness no right upper quadrant pain Skin: General skin exam: no rashes or lesions noted Neuro: Cognition (Neuro): normal cognition Extrem: General: normal to inspection Psych: Mental Status: mental status grossly normal H&P: Results Labs Labs: Short CBC 01/21/25 Range/Units 17:41 WBC 9.3 (4.5-10.0) K/mm3 Hgb 12.9 (12.0-15.0) g/dL Hct 38.8 (37.0-47.0) % Plt Count 185 (150-375) k/mm3 Assessment and Plan Assessment and plan (1) Encounter for induction of labor: Code(s): Z34.90 - Encounter for supervision of normal , unspecified, unspecified trimester Status: Acute Assessment and Plan: she has been informed of risks benefits of induction of labor versus spontaneous labor has opted for induction of labor. (2) Gestational diabetes requiring insulin: Code(s): O24.414 - Gestational diabetes mellitus in , insulin controlled Status: Acute Assessment and Plan: Admit. NPH dose pm. Breakfast am. Monitor blood sugars in labor.
[2025-01-22] MEDS: fentaNYL CITRATE INJ (*CRX) 100 MCG/2 ML VIAL IV PUSH (16:54)
[2025-01-22] MEDS: OXYTOCIN 30 UNITS/NS 500 ML 30 UNITS/500 ML BAG 999 UNITS IV CONT (19:34)
[2025-01-22] MEDS: OXYTOCIN 30 UNITS/NS 500 ML 30 UNITS/500 ML BAG 125 UNITS IV CONT (19:58)
--- NOTE | 2025-01-22 20:15 | PM.OBPRVD ---
OB - Vaginal Delivery Note Procedure Delivery date: 01/22/25 Events: Gestational Diabetes and Other (IVF conception) Induction method: Per Misoprostol Protocol Delivery augmentation: Rupture of Membranes and Pitocin Delivery monitor: External FHT and Internal Uterine Route of delivery: Laceration Description: Perineal - 1st Degree, Cervical (3cm posterior cervix) and Labial (right superior tear) Delivery repair: vicryl (2.0 and 3.0 vicryl) Quantitative Blood Loss (ml): 650 Anesthesia type: Epidural Disposition: Floor Complications: Other complications ( hemorrhage) Narrative: She was admitted for induction of labor. She had cytotec x 3 doses. She had an episode of bradycardia morning of 01/22/25 with episode of uterine hypertonia.. Recovered with terbutaline Cervix was 1.5 cm. She had AROM no fluid and then there was large gush approximately 30 min after that. Pitocin started. She had epidural placed on request. She progressed to active labor. She dilated to complete and delivered a female . Nose and mouth suctioned at perineum. Loose nuchal cord reduced, and cord around leg reduced. She was vigorously crying and placed on maternal abdomen. Delayed cord clamping for one minute and then cord doubly clamped and cut. Cord blood and cord gases obtained. She did have brisk bleeding. Pitocin started. Placenta delivered spontaneously and intact. She had intermittent hypotonia. The cavity was sponge curette. No tissue. She was given Methergine 0.2mg IM helped initially then intermittent hypotonia returned. The uterus was cleared of clot and vigorously massaged. She was given Cytotec 1000mg. There was noted to be a 3cm, posterior cervical laceration. Repaired with 2.0 vicryl. Bleeding improved. She had a right superior labial laceration near periurethral area and repaired with several figure of eight sutures 3.0 vicryl. Perineal laceration repaired with 3.0 vicryl. Baby Date of : 01/22/25 Time of : 19:28 Gestational Age by Date: 39 Infant gender: Female Weight (pounds): 8 Weight (ounces): 3 presentation: vertex position: Left Occiput Anterior Placenta delivery description: Spontaneous Cord Vessel Description: 3 Vessels, Nuchal Cord, Loose, Delayed Cord Clamping and Around Extremity score one minute: 9 score five minutes: 9
[2025-01-22] MEDS: IBUPROFEN 600 MG TABLET PO (21:00)
[2025-01-22] MEDS: METHYLERGONOVINE MALEATE 0.2 MG/ML VIAL IM (21:01)
--- NOTE | 2025-01-22 23:58 | OBPPTRN ---
Patient transferred to post room #283 via wheelchair. Support person present. Oriented to unit, room, information board, rooming in, admission packet and security measures. Patient verbalizes understanding.
[2025-01-23] VITALS: BP 106/62; PULSE 86; RESP 16; TEMP 37.1; O2SAT 99
[2025-01-23] MEDS: ACETAMINOPHEN 325 MG TABLET 650 MG PO ×2 (00:10→20:53)
[2025-01-23 04:12] VITALS: BP 112/64; PULSE 88; RESP 16; TEMP 36.8; O2SAT 97
[2025-01-23 06:00] LABS: Hematocrit 29.2 % (37.0-47.0); Hemoglobin 9.6 g/dL (12.0-15.0)
--- NOTE | 2025-01-23 07:14 | WPDHPUPDATE1 ---
History and Physical Update Update Date/Time: 01/23/25 07:14 History and Physical has been reviewed, including an updated exam of the patient. There are NO changes in the patient's condition. Risks, benefits, and alternatives have been discussed and questions answered. Patient agrees to proceed with procedure.
--- NOTE | 2025-01-23 07:40 | P.PNOB_ITS ---
OB - PN: Subj Subjective Date/time seen: 01/23/25 07:40 Interval history: Denies lightheadedness or dizziness. Patient comments: pain well controlled, tolerating diet and other (Decreasing lochia.) baby status: doing well and nursing well OB - PN: Obj Data Labs 01/23/25 05:52 Labs: Laboratory Results - last 24 hr 01/22/25 01/22/25 01/22/25 10:34 14:15 17:30 Hgb Hct POC Capillary Glucose 133 H 123 H 108 H 01/23/25 05:52 Hgb 9.6 L D Hct 29.2 L POC Capillary Glucose OB - PN A/P Assessment and Plan (1) Vaginal delivery: Code(s): O80 - Encounter for full-term uncomplicated delivery Status: Acute Plan day: 1 Plan: routine care Comments: Patient doing well. Time Spent With Patient Time: Total time spent is greater than 50% in coordination of care (as documented) at patient's floor/unit and/or counseling patient: Exam 2 Psych: Affect: normal affect Other: Abd: fundus firm below umbilicus, nontender Perineum: healing Ext: nontender
[2025-01-23 08:00] VITALS: BP 109/61; PULSE 93; RESP 18; TEMP 36.8; O2SAT 98
[2025-01-23] MEDS: IBUPROFEN 600 MG TABLET PO ×3 (08:44→23:55)
[2025-01-23] MEDS: MULTIVIT/MIN/PREN/FOL AC/IRON TABLET 1 TAB PO (08:44)
[2025-01-23 08:45] VITALS: PULSE 93; RESP 18; O2SAT 98
[2025-01-23] MEDS: DOCUSATE SODIUM 100 MG CAPSULE PO ×2 (08:45→17:14)
--- NOTE | 2025-01-23 08:50 | PC.NURSE ---
Mother is ready to breastfeed and would like some assistance with latch. She states that the initial feeding was great and not painful. Through the night, she felt that baby was more 'chompy' and she began to have nipple pain. Today we used the cross cradle latch on the right breast. Mom holds baby and her breast well. We worked several minutes to get a wide open mouth and mom was shown how the bigger mouth allows for more breast tissue to be in baby's mouth and prevents nipple smashing. Mom states that she can feel the difference between the shallow and deep latches. She is encouraged to break the latch and start over anytime it becomes pinchy or painful. Mom is instructed to call out for any/all feedings today when she needs assistance. Primary RN updated.
[2025-01-23 11:57] VITALS: BP 114/65; PULSE 95; RESP 16; TEMP 37.2; O2SAT 98
--- NOTE | 2025-01-23 12:25 | PC.NURSE ---
Patient called out for assistance with waking baby. Baby was not swaddled but was dressed. We moved her to the bassinet and fully undressed her. She woke easily. Mom put her to breast on the right side in cross cradle position. Baby latched once with a shallow latch. She came off and mom latched again independently. Mom states that the latch is feeling good now. It looks optimal from the outside. She is encouraged to call out if she needs further assistance. RN updated.
--- NOTE | 2025-01-23 14:11 | WPDANLDPN2 ---
Anes-Prog Note L&D Date/Time: 01/23/25 14:11 Comfortable throughout: labor and delivery Neuraxial method: epidural Epidural/Spinal procedure site: clean & non-tender Neuro status: Neuro function grossly intact. Cardiovascular status: normal Respiratory status: normal Airway patency: baseline Mental status: baseline Post-Op hydration status: normal Vital Signs: Last Vital Signs Temp 37.2 C 01/23/25 11:57 Pulse 95 01/23/25 11:57 Resp 16 01/23/25 11:57 BP 114/65 01/23/25 11:57 Pulse Ox 98 01/23/25 11:57 O2 Del Method Room Air 01/23/25 08:45 Pain score (VAS): 2 I/O: Intake & Output 01/22/25 01/23/25 01/23/25 23:59 07:59 15:59 Intake Total 1000 Output Total 650 Balance 350 Post-procedural complaints: none Patient feedback: Patient satisfied with anesthetic care.
[2025-01-23 19:24] VITALS: BP 145/89; PULSE 100; RESP 18; TEMP 36.6; O2SAT 98
--- NOTE | 2025-01-24 07:25 | PC.NURSE ---
0725: Patient called out for assistance waking baby. We tried to undress and stimulate baby but we were unable to elicit feeding cues. Mom states that baby cluster fed last night and we reviewed getting in at least 8 feedings every 24 hours. Mom was able to latch baby for about 5 minutes. Mom is educated that this is acceptable for some feedings, but if baby consistently eats for short durations, she needs to contact the office or her community engagement manager. Mom verbalized understanding and expresses her desire to review pump use before she goes home. Primary RN updated. 0950: Reviewed standard discharge information with patient including monitoring infant for required output, transition of stools, feeding 8-12 times every 24 hours, milk production, and follow up at [facility] and with community engagement manager in the first week of life. Anticipatory guidance given on engorgement, plugged ducts, and mastitis. Parents are encouraged to take the feeding log and continue to track feedings and output for the first week . Offered outpatient resources with [facility] referral and Services at [facility]. Assisted patient to set up her Spectra and Mom Cozy pumps. Flange fit (17mm measure, 19mm insert recommended), settings, suction, and cleaning pump parts reviewed. Patient has the Mom/Baby Guide for further education and reference for common concerns, phone numbers, and guidance on when to call the doctor. A feeding plan was added to the infant?s discharge plan. Patient states that she has no further questions or concerns regarding .?Primary RN updated.
[2025-01-24] MEDS: MULTIVIT/MIN/PREN/FOL AC/IRON TABLET 1 TAB PO (07:30)
[2025-01-24] MEDS: DOCUSATE SODIUM 100 MG CAPSULE PO (07:30)
[2025-01-24] MEDS: IBUPROFEN 600 MG TABLET PO (07:31)
[2025-01-24 07:45] VITALS: BP 115/66; PULSE 83; RESP 16; TEMP 36.4; O2SAT 99
[2025-01-24 09:00] VITALS: PULSE 83; RESP 16; O2SAT 99
--- NOTE | 2025-01-24 10:47 | PC.NURSE ---
Patient viewed the discharge video Mother & Baby Care, The First Two Weeks. Patient was given the opportunity and encouraged to ask questions. Patient verbalized understanding of information shared and has been given the mother/baby guide for home reference.
[2025-01-25 11:49] VITALS: BP 127/84; PULSE 82; RESP 18; TEMP 36.4; O2SAT 100
--- NOTE | 2025-02-20 08:21 | P.DS_ITS ---
DS: Admitting Diagnosis Discharge Date 01/24/25 Admitting Diagnosis Spontaneous rupture of membranes DS: Discharge Diagnosis Discharge Diagnosis (1) Vaginal delivery: Code(s): O80 - Encounter for full-term uncomplicated delivery Status: Acute (2) hemorrhage: Code(s): O72.1 - Other immediate hemorrhage Status: Acute OB - DS: Summary Hospital Course Hospital Course: She was admitted after confirmation of SROM. She had pitocin augmentation. She had a vaginal delivery complicated by hemorrhage. Post she did well. She had asymptomatic mild anemia and was started on oral iron therapy. She had adequate pain control, was ambulating well, and decrease lochia prior to discharge. Baby was doing well. OB Procedures : NST and Ultrasound OB Procedures Intrapartum: Spontaneous Vag Delivery OB Procedures: : None Peripartum Data Infant Delivery Method: Natural Vaginal Laceration Description: Perineal - 1st Degree, Cervical (3cm posterior cervix) and Labial (right superior tear) complications: none Status at Discharge Functional status at discharge: independent ambulation Time Spent with Patient Time attestation: Total time spent providing and/or coordinating discharge services: Exam Const: General: cooperative Orientation/consciousness: oriented to person, oriented to place and oriented to time HENMT: Face/Nose/Sinus: Normal external nose present Eyes: General: appearance normal, both eyes and all related structures Resp: Effort & Inspection: normal respiratory effort GI: Inspection: normal to inspection Skin: General skin exam: normal color Neuro: General: oriented to person, oriented to place and oriented to time Extrem: General: normal to inspection and no calf tenderness Psych: Appearance: grossly normal Mental Status: mental status grossly normal Discharge Plan Discharge Attending physician on discharge: Surjit Diaz Consulting providers: Braulio Mcdonald Jr.; Jennifer Franco Discharging Clinician: Surjit Diaz Anticipated Discharge Date/Time: 01/24/25 10:30 Patient Disposition: Home Activity: may shower, no straining and pelvic rest Diet: regular Discharge Instructions: Education: Mom and Baby Guide Given to: Mother Follow-Up: Call your delivering provider's office for an appointment to be seen in: 3 weeks Mom and baby should come [facility] the [facility] for the follow-up appointment. Appointment Date/Time: Saturday, January 25, 2025 at 11:00 am What to expect at your follow-up visit: Blood Pressure Check Physical Assessment Call [phone] if you are unable to keep your appointment time. BREAST CARE: * Wear a snug supportive bra. * For engorgement discomfort: Breast Feeding: * Apply warm moist washcloths * Express milk as needed to relieve engorgement * Wear loose clothing * For sore nipples: * Identify correct latch-on * Apply warm moist washcloths before and after nursing * Air dry nipples after nursing * May apply Lansinoh cream to nipples EPISIOTOMY/PERINEAL CARE: * Until bleeding stops, use your mariluz bottle after urinating * Change your pad frequently throughout the day * You may take sitz baths several times a day (fill your bathtub with warm water and soak for 20 minutes.) Do NOT bathe in the water * No tub baths until seen by your physician - You may shower ACTIVITY: * Rest as much as possible. * Do not exercise or lift anything heavier than your baby (such as laundry or other children.) * Avoid stairs or driving as much as possible. * Do not put anything into the vagina. No douching, tampons, or sexual activity until seen by physician. NOTIFY PHYSICIAN IF YOU HAVE ANY QUESTIONS OR IF ANY OF THE FOLLOWING SYMPTOMS OCCUR: * If your perineum becomes red, swollen, or more painful than what you have experienced in the hospital. * If your vaginal bleeding becomes foul smelling. * If your vaginal bleeding becomes more heavy than a period or if your bleeding changes from pink to bright red. However, you may pass an occasional walnut- sized clot once or twice for the first week . * If you experience a sharp, shooting pain in you calves. * If you discover a hard, reddened area on your breast or if you experience flu- like symptoms. DIET: * Eat regular, well-balanced meals. * Drink plenty of fluids daily. If , drink to thirst. Continue Levothyroxine as prescribed. 325mg Ferrous sulfate once a day. May take over the counter Ibuprofen or Tylenol, follow package directions. Patient Language: Chinese Stand Alone Forms: General Discharge Information Follow-up/Referrals: Surjit Diaz MD [Physician] - Call for Appointment Discharge Medications: Continued levothyroxine [Synthroid] 50 mcg tablet 50 mcg PO .QOD Patient Comments: Takes every Tuesday, , Tuesday, and Tuesday levothyroxine [Synthroid] 75 mcg tablet 75 mcg PO .QOD Patient Comments: Takes 75 mcg on Mondays, Wednesdays, and Fridays PNV #[id number] 30 mg iron-10 mg iron-1 mg capsule 1 cap PO HS Discontinued aspirin 81 mg capsule 81 mg PO DAILY Abrysvo (PF) 120 mcg/0.5 mL recon soln 0.5 ml IM ONCE Qty: 1 0RF Rx Instructions: as a single dose (DME) pen needle, diabetic [Qian Pen Needle] 32 gauge x 5/32 needle See Rx Instructions .MEDSUPPLY Qty: 100 0RF Rx Instructions: As directed Humulin N NPH Insulin KwikPen 100 unit/mL (3 mL) insulin pen 20 unit subcut QPM Patient Comments: Takes 20 units HS (DME) Dexcom G7 Sensor Device See Rx Instructions .ROUTE .COMPLEX Qty: 3 1RF Dose Instruction: APPLY SENSOR FOR 10 DAYS *PRIOR APPROVAL DENIED* Rx Instructions: APPLY SENSOR FOR 10 DAYS *PRIOR APPROVAL DENIED* No Action estradiol [Estrace] 0.01 % (0.1 mg/gram) cream See Rx Instructions .ROUTE DAILY Qty: 42.5 0RF Rx Instructions: apply fingertip amount at the vaginal entrance area daily; Date of admission: 01/21/25 16:58 Primary Care Provider: Davis Villeda Admitting Provider: Surjit Diaz Attending physician on admission: Surjit Diaz Condition: Stable
== END 2025-01-24 13:35 | disposition home or self-care (01) | DRG 806 ==
LOC: ANHLDR 17:01 → ANHOB2 01-22 23:58
PROVIDERS: Admitting Provider Obstetrics & Gynecology; PCP Pediatrics; Visit Provider Obstetrics & Gynecology
DX: O24.424 Gestational diabetes mellitus in childbirth, insulin controlled (principal); O72.1 Other immediate postpartum hemorrhage; Z37.0 Single live birth; Z3A.39 39 weeks gestation of pregnancy; O99.284 Endocrine, nutritional and metabolic diseases complicating childbirth; E03.9 Hypothyroidism, unspecified; O62.3 Precipitate labor; O69.82X0 Labor and delivery complicated by other cord entanglement, without compression, not applicable or unspecified; O62.4 Hypertonic, incoordinate, and prolonged uterine contractions; O99.892 Other specified diseases and conditions complicating childbirth; R00.1 Bradycardia, unspecified
CPT/HCPCS: 36415; 82948; 85014; 85018; 85025; 86593; 86850; 86900; 86901; A9270; J1815; J2210; J2405; J2590; J2795; J3010; J3105; J7120

== ENCOUNTER 2025-03-12 11:59 | Outpatient (CLI) | payer BC, SELFPAY ==
--- OUTSIDE RECORDS SUMMARY | 2025-03-12 12:15 | XMS_ITS | Encounter Summary ---
Author Organization [facility] Address [address] [place] [address] Care Team Providers Care Ophthalmic Dispenser Name Role Phone Unavailable Primary Care Provider Unavailabl e Encounter Details Date Type Department Care Team (Latest Contact Info) Description 02/16/2024 Lab Requisition [facility] [address] [place] [address] Carla Chavez MD [address] [facility] [address] [place] [address] Hyperstimulation of ovaries Social History Tobacco Use Types Packs/Day Years Used Date Smoking Tobacco: Never Assessed Comments Unknown Sex and Gender Information Value Date Recorded Sex Assigned at Not on file Legal Sex Female 5:41 AM [facility] Gender Identity Not on file Sexual Orientation [...] - 5.1 mmol/L 02/16/2024 12:56 PM CDT [facility] Chloride 106 98 - 107 mmol/L 02/16/2024 12:56 PM CDT [facility] CO2 26 22 - 29 mmol/L 02/16/2024 12:56 PM CDT [facility] Calcium 9.6 8.4 - 10.4 mg/dL 02/16/2024 12:56 PM CDT [facility] Anion Gap 9 6 - 16 mmol/L 02/16/2024 12:56 PM CDT [facility] BUN 10 5.3 - 18.7 mg/dL 02/16/2024 12:56 PM CDT [facility] Creatinine 0.79 0.57 - 1.11 mg/dL 02/16/2024 12:56 PM CDT [facility] Alkaline Phosphatase 56 40 - 150 U/L 02/16/2024 12:56 PM CDT [facility] ALT 18 0 - 55 U/L 02/16/2024 12:56 PM CDT [facility] AST 13 5 - 34 U/L 02/16/2024 12:56 PM CDT [facility] Protein Total 6.6 6.4 - 8.3 gm/dL 02/16/2024 12:56 PM CDT [facility] Albumin 3.6 3.4 - 5.0 gm/dL 02/16/2024 12:56 PM CDT [facility] Bilirubin Total 0.6 0.2 - 1.2 mg/dL 02/16/2024 12:56 PM CDT [facility] eGFR by CKD-EPI >90 >=90 mL/min/1.7 3 m2 02/16/2024 12:56 PM T [facility] Blood BLOOD SPECIMEN / Unknown Venipuncture / Unknown 02/16/2024 12:15 PM CDT 02/16/2024 12:15 PM CDT us Carla Chavez MD LAB - CHEMISTRY ORDERA BLES Final Result [facility] [address] [place] [address] * (ABNORMAL) CBC WITH DIFFERENTIAL (02/16/2024 12:15 PM CDT) [facility] WBC 7.4 4.0 - 10.7 x10E9/L 02/16/2024 12:32 PM CDT [facility] RBC Count 3.96 3.90 - 5.20 x10E12/L 02/16/2024 12:32 PM CDT [facility] Hemoglobin 11.4(L) 11.9 - 15.8 g/dL 02/16/2024 12:32 PM CDT [facility] Hematocrit 35.5 34.8 - 46.1 % 02/16/2024 12:32 PM CDT [facility] MCV 89.6 80.0 - 98.0 fL 02/16/2024 12:32 PM CDT [facility] MCH 28.8 26.7 - 33.6 pg 02/16/2024 12:32 PM CDT [facility] MCHC 32.1 31.7 - 36.3 g/dL 02/16/2024 12:32 PM CDT [facility] RDW-CV 11.9 11.3 - 14.8 % 02/16/2024 12:32 PM CDT [facility] Platelet Count 172 150 - 420 x10E9/L 02/16/2024 12:32 PM CDT [facility] MPV 10.6 7.8 - 11.4 fL 02/16/2024 12:32 PM CDT [facility] Neutrophil % 74.5(H) 41.0 - 74.0 % 02/16/2024 12:32 PM CDT [facility] Lymphocyte % 13.4(L) 17.0 - 47.0 % 02/16/2024 12:32 PM CDT [facility] Monocyte % 10.0 3.0 - 11.0 % 02/16/2024 12:32 PM CDT [facility] Eosinophil % 1.4 0.0 - 7.0 % 02/16/2024 12:32 PM CDT [facility] Basophil % 0.3 0.0 - 1.6 % 02/16/2024 12:32 PM CDT [facility] Immature Granulocytes % 0.4 0.0 - 1.0 % 02/16/2024 12:32 PM CDT [facility] Neutrophil Absolute 5.52 1.60 - 7.50 x10E9/L 02/16/2024 12:32 PM CDT [facility] Lymphocyte Absolute 0.99(L) 1.00 - 4.40 x10E9/L 02/16/2024 12:32 PM CDT [facility] Monocyte Absolute 0.74 0.15 - 1.00 x10E9/L 02/16/2024 12:32 PM CDT [facility] Eosinophil Absolute 0.10 0.00 - 0.60 x10E9/L 02/16/2024 12:32 PM CDT [facility] Basophil Absolute 0.02 0.00 - 0.13 x10E9/L 02/16/2024 12:32 PM CDT [facility] Blood BLOOD SPECIMEN / Unknown 02/16/2024 12:15 PM CDT 02/16/2024 12:15 PM CDT Carla Chavez MD LAB - HEMATOLOGY ORDER EDITA Final Result Performing Organization Address City/State/[facility] Co de Phone Number [facility] [address] [place] [address] documented in this encounter Visit Diagnoses Diagnosis Hyperstimulation of ovaries Other ovarian hyperfunction documented in this encounter
--- OUTSIDE RECORDS SUMMARY | 2025-03-12 12:15 | XMS_ITS | Clinical Summary ---
Author Organization [facility] Address [address] [place] [address] Care Team Providers Care Handle Bar Assembler Name Role Phone Unavailable Primary Care Provider Unavailabl e Source Comments [facility],non-[facility] Affiliates and Associated Physician Practices is amultiple site organization consisting of ambulatory clinics and hospital sitesin [place], [place], [place] and [place]. This disclosure is being madepursuant to the Care Everywhere program and may not contain all information available regarding this patient. Last updated 18.[facility] Daric Allergies Active Allergy Reactions Criticality Noted Date [...] - 01/18/2025 11:59 PM CDT Hospital Encounter [facility] [address] [place] [phone] Lacey Aldrich MD Discharge Disposition: Home or Self Care 01/11/2025 12:29 PM CDT - 01/11/2025 11:59 PM CDT Hospital Encounter [facility] [address] [place] [phone] Shahab Anna MD Discharge Disposition: Home or Self Care 01/04/2025 7:21 AM CDT - 01/04/2025 11:59 PM CDT Hospital Encounter [facility] [address] [place] [phone] Chano Reed MD UTILIZATION MANAGEMENT MANAGER Discharge Disposition: Home or Self Care 12/25/2024 2:24 PM CDT - 12/25/2024 11:59 PM CDT Hospital Encounter [facility] [address] [place] [phone] Paulie Aparicio MD Discharge Disposition: Home or Self Care 12/25/2024 2:23 PM CDT Hospital Encounter [facility] [address] [place] [phone] Paulie Aparicio MD Discharge Disposition: Home or Self Care from Last 3 Months Social History Tobacco Use Types Packs/Day Years Used Date Smoking Tobacco: Never Assessed Estimated Date of Delivery Comme nts Yes 01/27/2025 Based on last me nstrual period of 04/22/2024 Sex and Gender Information Value Date Recorded Sex Assigned at Not on file Legal Sex Female 5:41 AM 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 INTELLIGENCE 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 Gender Identity Not on file Sexual Orientation [...] of 3 - 19+ 3-dose series) 12/27/2014 HPV VACCINE (1 - 3-dose SCDM series) 12/27/2022 COVID-19 VACCINE ( - 2023-2 5 season) 2024 DEPRESSION SCREENING 07/25/2024 OB-ONE HOUR GLUCOSE 10/21/2024 OB-RHOGAM INJECTION 11/04/2024 OB-GROUP B STREP SCREEN 12/23/2024 INFLUENZA VACCINE (#1) 2025 PAP SMEAR 05/10/2025 05/10/2022 ZOSTER VACCINE [...] weeks gestation of (HCC) Encounter for ultrasound ([facility]) BIOPHYSICAL PROFILE W NST Routine 01/11/2025 2:11 PM CDT Subclinical hypothyroidism In vitro fertilization Diet controlled gestational diabetes mellitus (GDM) in third trimester (HCC) 37 weeks gestation of (HCC) Encounter for ultrasound ([facility]) BIOPHYSICAL PROFILE W NST Routine 01/04/2025 7:22 AM CDT Diet controlled gestational diabetes mellitus (GDM) in third trimester (HCC) SONOGRAM - COMPLETE Routine 12/25/2024 2 :48 PM CDT Encounter for ultrasound to assess growth (HCC) Subclinical hypothyroidism In vitro fertilization Insulin controlled gestational diabetes mellitus (GDM) in third trimester (HCC) 35 weeks gestation of (HCC) from Last 3 Months Results * Biophysical Profile w NST (01/18/2025 8:04 AM CDT) Only the most recent of3 resultswithin the time period is included. Linked Results Indication ======== IVF GDM-A2 managed by OB Normal echocardiogram with [facility] History ====== OB History 2. Para 0 [id number] Lab Tests Test Date Result Declined Maternal [...] 8 lb 3 oz EFW by Hadlock ([id number]) overall normal range, but the AC is [...] volume is normal. The biophysical profile is 10/10. Comment ======== ultrasound alone cannot detect all structural, genetic, or functional , placental, or maternal abnormalities Follow-up ======== Continue weekly BPP with 2x weekly NST *IOL scheduled Tuesday01/21/25 Coding ====== Procedures 08176: [place] [address]: Biophysical Profile W NST [employer] PACS Anatomical Region Laterality Modality Other 01/18/2025 8:04 AM CDT Surjit Nicholas MD [facility] ORDERABLES Edited Result - Final * SONOGRAM - COMPLETE (12/25/2024 2:48 PM CDT) Linked Results Indication ======== IVF , PCD-D4-Cafno A2 managed by OB Normal echocardiogram with [...] 6 lb 3 oz EFW by Hadlock ([id number]) appropriate Growth Overview Exam date GA BPD [...] view. RVOT view. LVOT view. 3-vessel view. 9-ribqaw-jlemdwj view. Situs. Aortic arch view. Bicaval view. [...] with 2x weekly NST Coding ====== Procedures [id number]: [place] [address]: Biophysical Profile W NST [facility] Anatomical Region Laterality Modality Other 12/25/2024 2:48 PM CDT Surjit Nicholas MD [facility] ORDERABLES Edited Result - Final from Last 3 Months Insurance AN[employer]
--- OUTSIDE RECORDS SUMMARY | 2025-03-12 12:15 | XMS_ITS | Clinical Summary ---
Author Organization [facility] Address [address] [place] [phone] Phone Care Team Providers Care Change Control Manager Name Role Phone Unavailable Primary Care Provider Unavailabl e Encounters Date Type Department Care Team Description 02/27/2025 External Device Data ST[facility] ABSTRACTION Provider, Abstract 02/06/2025 External Device Data [facility] ABSTRACTION Provider, Abstract 02/05/2025 External Device Data ST[facility] ABSTRACTION Provider, Abstract 01/22/2025 External Device Data STL ABSTRACTION Provider, Abstract from Last 3 Months Social History Tobacco Use Types Packs/Day Years Used Date Smoking Tobacco: Never Assessed Comments Unknown Sex and Gender Information Value Date Recorded Sex Assigned at Not on file Legal Sex Female 3:54 PM 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
--- OUTSIDE RECORDS SUMMARY | 2025-03-12 12:16 | XMS_ITS | Clinical Summary ---
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 OPERATIONS COORDINATOR Gender Identity Not on file Sexual Orientation Not on file Plan of Treatment Health Maintenance Due Date Last Done Comments Cervical Cancer Screening 1995 Depression Screening 1995 Hepatitis C Screening 1995 Varicella Vaccines (1 of 2 - 13+ 2-dose series) 12/27/2008 Regular Well Visit/Exam 18-64 12/27/2013 DTaP/Tdap/Td Vaccine (7 - Td or Tdap) 11/07/2018 11/07/2008, 04/28/2000, 04/28/2000, Additional history exists HPV Vaccines (1 - 3-dose SCDM series) 12/27/2022 Influenza Vaccine (#1) 2025 Hepatitis B Screening Completed 07/06/1996 , 07/06/1996, 02/27/1996, Additional history exists Pneumococcal vaccine <65 Aged Out No longer eligible based on patient's age to complete this topic Insurance [facility] Care Teams Filter Machine Operator Relationship Specialty Start Date End Date Carla Chavez MD PCP - General Obstetrics and Gynecology 07/08/23
--- OUTSIDE RECORDS SUMMARY | 2025-03-12 12:16 | XMS_ITS | Clinical Summary ---
Author Organization [facility] Address [facility] [place] [address] Care Team Providers Care Facing End Trimmer Name Role Phone Davis Villeda MD Primary Care Provider [phone] Allergies Active Allergy Reactions Criticality Noted Date [...] Comments Blood Pressure 122/73 07/15/2024 1:15 AM FILLER SIFTER MACHINE Pulse 107 07/15/2024 12:41 AM FILLER SIFTER MACHINE Temperature 36.6 C (97.8 F) 07/15/2024 12:41 AM FILLER SIFTER MACHINE Respiratory Rate 16 07/15/2024 12:41 AM FILLER SIFTER MACHINE Oxygen Saturation 96% 07/15/2024 1:15 AM FILLER SIFTER MACHINE Inhaled Oxygen Concentration - - Weight 97.5 kg (215 lb) 07/15/2024 12:41 AM FILLER SIFTER MACHINE Height 185.4 cm (6' 1) 07/15/2024 12:41 AM FILLER SIFTER MACHINE Body Mass Index 28.37 07/15/2024 12:41 AM FILLER SIFTER MACHINE Plan of Treatment Health Maintenance Due Date Last Done Comments Hepatitis C 12/27/2013 DTaP, Tdap and Td Vaccines (7 - Td or Tdap) 11/07/2018 11/07/2008, 04/28/2000, 04/02/1997, Additional history exists HPV Vaccines (1 - 3-dose SCDM series) 12/27/2022 Annual Physical 05/10/2023 05/10/2022, 04/24, 01/14/2020 COVID-19 Vaccine ( season) 2024 Cervical Cancer Screening Pap Smear (Age 21 to 29) Every 3 Years 05/10/2025 05/10/2022, 05/04/2021, 05/04/2021, Additional history exists Cervical Cancer Screening 05/10/2025 Hepatitis B Vaccines Completed 07/06/1996, 07/06/1996, 02/27/1996, Additional history exists Meningococcal Vaccine Completed 03/12/2014, 012 Meningococcal B Vaccine Aged Out No l [...] (05/10/2022 10:14 AM CDT) THIN PREP PAP [address] [phone] Department of Pathology Pathology Report CERVICAL/VAGINAL PAP SMEAR REPORT Name: FATMATA RAMON Age: 6 1995 (Age: 26) Location: [facility] Sex: F Collected Date: 05/10/2022 Hospital #: [id number] Date Received: 05/12/2022 Date Reported: 05/13/2022 Provider: [...] is not effective in detecting cervical adenocarcinoma. [facility] 05/10/2022 10:1 4 AM CDT 05/12/2022 10:14 AM CDT Comment:CERVICAL/ENDOCERVICA L Lukasz REGALADO PATHOLOGY/CYTOLOGY ORDERABLE S Final Result [facility] [address] [place] [address], from Last 3 Months or Most Recently Relevant to Health Maintenance Insurance Care Teams Facing End Trimmer Relationship Specialty Start Date End Date Davis Villeda MD [address] [place] [address] PCP - General PEDIATRICS 07/06/23
[2025-03-12 12:19] LABS: Hematocrit 41.7 % (37.0-47.0); Hemoglobin 13.6 g/dL (12.0-15.0); Mean Corpuscular HGB Conc 32.6 g/dl (32-36); Mean Corpuscular Hemoglobin 27.7 pg (26-34); Mean Corpuscular Volume 84.9 fl (80-100); Platelet Count Result 222 k/mm3 (150-375); Red Blood Count 4.91 M/mm3 (4.2-5.4); White Blood Count 6.4 K/mm3 (4.5-10.0)
[2025-03-12 13:00] LABS: Free T4 Free Thyroxine 1.18 ng/dL (0.78-2.19)
[2025-03-12 13:13] LABS: Thyroid Stimulating Hormone 1.330 uIU/mL (0.465-4.680)
== END 2025-03-12 12:00 | disposition home or self-care (01) ==
PROVIDERS: Visit Provider Obstetrics & Gynecology
DX: D64.9 Anemia, unspecified (principal)
CPT/HCPCS: 36415; 84439; 84443; 85027